=== PATIENT | male | born 1950 | race Caucasian/White ===

== ENCOUNTER → 2021-07-11 10:38 | Outpatient (CLI) | payer MEDICARE, OTHER, SELFPAY ==
--- NOTE | 2021-07-11 10:45 | XR_ITS ---
PROCEDURE: XR KNEE LT 4V CLINICAL INDICATION: LT ANTERIOR KNEE PAIN COMPARISON: CR [id number] KNEE-4 OR 5 VIEWS-RT from 06/30/2015 CR [id number] KNEE-LIMITED 2 VIEWS-RT from 07/17/2015 CR [id number] KNEE-LIMITED 2 VIEWS-RT from 04/16/2016 FINDINGS: There is marked joint space narrowing medially with [id number] appearance of the medial femoral condyle and medial tibial plateau. There is lateral displacement medial tibial plateau and in relationship to the medial femoral condyle by 15 mm. There is a proximal extent of a intramedullary osito visualized in the proximal tibia stabilized by 2 threaded tours only placed screws at the diametaphyseal zone of the tibia. There is marked narrowing the patellofemoral space with prominent spurring of the adjacent lateral condyle and spurring of the superior border of the patella. The lateral displacement of the tibia in relationship to the femur femoral condyle is similar in appearance to the displacement of the femoral tibial articulation on the right knee prior to total knee arthroplasty right-side. IMPRESSION: Marked degenerative change of the knee primarily involving the medial joint space and and patellofemoral space Dictated by: Dr. Giuliano Cabrera MD 07/11/2021 11:39 Dr. Giuliano Cabrera MD in [place] 07/11/2021 11:39
== END ==
PROVIDERS: PCP Family Medicine; Visit Provider Family Medicine
DX: M25.562 Pain in left knee (principal)
CPT/HCPCS: 73564

== ENCOUNTER → 2021-09-17 13:36 | Outpatient (CLI) | payer MEDICARE, OTHER, SELFPAY ==
--- NOTE | 2021-09-17 | CA_ITS ---
APPROVED REPORT EXAM: Comprehensive 2D, Doppler, and color-flow Echocardiogram Welding Machine Operator Electron Beam: Diamond Hopper RDCS Ht: 5 ft 8 in Wt: 302lbs BSA: 2.44 BP: 126/75 mmHg Indications: SOA,OBESITY,HTN,ABN EKG TDS SECONDARY TO MORBID OBESITY M-Mode Dimensions RVDd 3.10 cm (0.9-2.6) LA Diam 4.78 cm (1.9-4.0) LVDd 7.13 cm (3.5-5.7) Ao Diam 3.11 cm (2.0-3.7) LVDs 5.26 cm (3.5-5.7) IVSd 1.13 cm (0.6-1.1) PWd 1.18 cm (0.6-1.1) EF (Teich) 50.00% FS 26.20% EDV (Teich) 266.20 mL ESV (Teich) 133.00 mL LV Diastology E Decel Time 213.00 (160-240 msec) E/A Ratio 0.7 MED E' 4.60 (< 7 cm/sec) E'/MED E' Ratio 8.80 (>14) LAT E' 5.00 (<10 cm/sec) E/LAT E' Ratio 8.10 (>14) Mitral Valve MV E Max Cristobal. 40.00 (40-130 cm/s) MV A Velocity 54.00 (40-130 cm/s) E/A Ratio 0.75 MV Decel. Time 213.00 (160-240 ms) MV PHT 62.00 ms Left Ventricle Left atrium is mildly enlarged, left ventricle appears to be mildly dilated, visually estimated ejection fraction 50% with no obvious regional wall motion abnormality, endocardial surfaces are poorly visualized, grade 1 diastolic dysfunction seen without tissue Doppler evidence of raise left atrial pressure. Right Ventricle Right atrium and right ventricle moderately enlarged with normal contractility. Aortic Valve Aortic valve is minimally thickened and fibrosed, there is no aortic stenosis or aortic insufficiency. Mitral Valve Mitral valve leaflets grossly normal, there is no mitral stenosis, there is trace mitral regurgitation. Tricuspid Valve Tricuspid valve grossly normal, there is trace tricuspid regurgitation, tricuspid regurgitation jet velocity is inadequate for calculation of the right ventricular systolic pressure. Pulmonic Valve Pulmonic valve is poorly visualized. Great Vessels Aortic root is normal size. Inferior vena cava is poorly visualized. Pericardium No significant pericardial effusion noted. There is anterior echo-free space seen. Conclusion 1. Technically difficult study because of the patient factors and poor acoustic windows. 2. Biatrial enlargement, mildly dilated left ventricle, visually estimated ejection fraction 50% with no obvious regional wall motion abnormality, grade 1 diastolic dysfunction seen without tissue Doppler evidence of raise left atrial pressure. 3. Moderately enlarged right ventricle with normal contractility. 4. Trace mitral and tricuspid regurgitation. 5. No significant pericardial effusion noted. There is anterior echo-free space seen. 6. Inferior vena cava is poorly visualized. Electronically signed by : Darren Faust MD 09/17/2021 17:30:45
== END ==
PROVIDERS: PCP Family Medicine; Visit Provider Family Medicine
DX: I45.10 Unspecified right bundle-branch block (principal); I49.3 Ventricular premature depolarization; I10 Essential (primary) hypertension; J44.9 Chronic obstructive pulmonary disease, unspecified; R94.31 Abnormal electrocardiogram [ECG] [EKG]
CPT/HCPCS: 93306

== ENCOUNTER → 2021-12-19 06:25 | Outpatient (CLI) | payer MEDICARE, OTHER, SELFPAY ==
--- NOTE | 2021-12-19 06:32 | CA_ITS ---
APPROVED REPORT Exam: Pharmacologic Technologist: Amparo García Ht: 5 ft 8 in Wt: 308 lbs BSA: 2.46 m2 HR: 70 bpm BP: 134/83 mmHg Indications: ChF, Dyspnea Medical History Medications: Lisinopril,,,,, Asa,,,,, SpirOnolactone,,,,, TorSEMIDE,,,,, Potassium,,,,, StIOLoto Respimat,,,,, Stress Test Details Test: LEXISCAN HR Resting HR: 70 bpm Max Heart Rate (APMHR): 148.081417 bpm Max HR Achieved: 89 bpm Target HR (85% APMHR): 125.031226 bpm % of APMHR: 60.14 Recovery HR: 80 bpm BP Resting BP: 134.0/83.0 mmHg Max BP: 134.0/83.0 mmHg Recovery BP: 125.0/75.0 mmHg ECG Resting ECG: Normal sinus rhythm, right bundle branch block, poor R wave progression Clinical Exercise duration: 04:00 min Highest Stage Achieved: Exercise capacity: 1.0 METs Stress ECG Conclusion Symptoms: Mild lightheadedness. No chest pain. Arrhythmias/Ectopy: Rare PVC ST-T Changes: No significant changes. Conclusion: Unremarkable Lexiscan stress. Myoview images reported separately. Test Summary REST . . . . . . . Resting REST 04:48 . . 70 . 134/ 83 . . Stage 1 . . . . . . . Myoview Injected Stage 1 01:00 . . 78 . . . . Stage 2 01:00 . . 87 . 121/ 74 . . Stage 3 01:00 . . 83 . 126/ 75 . . Stage 4 01:00 . . 81 . 134/ 74 . Stop exercise at 04:00 RECOVERY 01:00 . . 80 . 117/ 78 . . RECOVERY 02:00 . . 80 . 117/ 78 . . RECOVERY 03:00 . . 79 . 125/ 75 . . RECOVERY 03:36 . . 80 . 125/ 75 . . Electronically signed by : Darren Faust MD 12/19/2021 20:19:53
--- NOTE | 2021-12-19 06:32 | NM_ITS ---
APPROVED REPORT Exam: Nuclear Stress Test Indication: CHF, FM HX., C.P., SOB, ABN EKG Patient Location: Outpatient Stress Tech: Amparo García DE Tech:YOKO Quiñones RT(R)(N) Ht: 6 ft 0 in Wt: 299 lbs HR: 70 bpm BP: 134/83 mmHg BSA: 2.53 m2 History: CHF, FM HX., C.P., SOB, ABN EKG Procedure: Patient received a 0.4 mg of intravenous Lexiscan, resting heart rate 70 bpm, resting blood pressure 134/83 mmHg, with Lexiscan maximum heart rate achived was 87 bpm which is Less than 85 % of the maximum predicted heart rate and blood pressure was 121/74 mmHg. With Lexiscan, patient denied any complaint of chest pain. Electrocardiogram Resting electrocardiogram shows sinus rhythm right bundle branch block, with Lexiscan there is less than 1.[address] segment depression noted from the baseline EKG. The EKG portion of the Lexiscan is nondiagnostic. Cardiac Stress and Resting SPECT Images: Cardiac Stress and Resting SPECT images were obtained using technetium 99m Myoview 31.1 mCi stress and 10.15 mCi at rest. Gated SPECT for analysis of segmental wall motion and calculation of ejection fraction also done. Cardiac stress and resting SPECT images show uniform myocardial activity without segmental perfusion abnormality, computer derived ejection fraction is 55% with no regional wall motion abnormality, right ventricle is mildly enlarged with normal contractility. However there is transient ischemic dilatation of the left ventricle seen, raising the concern for presence of balanced ischemia and multivessel coronary artery disease. Conclusion: 1. The EKG portion of the Lexiscan is nondiagnostic. 2. No scintigraphic evidence of reversible ischemia seen, computer derived ejection fraction is 55% with no regional wall motion abnormality, right ventricle is mildly enlarged with normal contractility. However there is transient ischemic dilatation of the left ventricle seen, raising the concerns for presence of balanced ischemia and multivessel coronary artery disease. 3. Abnormal Lexiscan Myoview study. Electronically signed by : Darren Faust MD 12/19/2021 20:23:21
--- NOTE | 2021-12-19 06:32 | CT_ITS ---
FINAL REPORT TECHNIQUE: Axial CT images were performed from the lung apices through the upper abdomen. Coronal reformats were submitted. This study was performed with techniques to keep radiation doses as low as reasonably achievable (ALARA). Individualized dose reduction techniques using automated exposure control or adjustment of mA and/or kV according to the patient's size were employed. CLINICAL HISTORY: dyspnea/edema/abnl ecg COMPARISON: 08/20/2016 FINDINGS: There is no axillary adenopathy. There is no hilar or mediastinal mass or adenopathy. Heart size is normal. There is no pericardial or pleural effusion. There is mild bilateral atelectasis or scar. There is a nodule in the right posterior costophrenic angle measuring 21 mm with calcifications within it which is nonspecific, larger than previous. There is fatty infiltration of the liver. IMPRESSION: Nodule in the right posterior costophrenic angle. Recommend follow-up CT and/or PET/CT. Reviewed, Interpreted and Dictated by Good Hand III, MD Transcribed by Alyson Leonard Authenticated by Good Hand III, MD on 12/19/2021 10:14:41 AM [facility]
--- NOTE | 2021-12-19 08:28 | HMH.ITSHM ---
Current Home Medications as stated by this patient Stuart Solomon or registration representative. []TORSEMIDE TIOTROPIUM SPIRONOLACTONE POTASSIUM LISINOPRIL ASA
== END ==
PROVIDERS: PCP Family Medicine; Visit Provider Internal Medicine Cardiovascular Disease
DX: I50.9 Heart failure, unspecified (principal); R06.00 Dyspnea, unspecified; R60.0 Localized edema; R94.31 Abnormal electrocardiogram [ECG] [EKG]; G47.33 Obstructive sleep apnea (adult) (pediatric)
CPT/HCPCS: 71250; 78452; 93017; A9502; G0399; J2785

== ENCOUNTER → 2022-01-01 11:00 | Outpatient (CLI) | payer MEDICARE, OTHER, SELFPAY ==
[2022-01-01 12:14] LABS: Basophils # 0.1 K/mm3 (0-0.2); Basophils % 1.3 % (0.1-2.0); Eosinophils # 0.1 K/mm3 (0.0-0.4); Eosinophils % 2.1 % (0.1-12.0); Hematocrit 46.9 % (42.0-52.0); Hemoglobin 15.1 g/dL (14.1-18.0); Lymphocytes # 1.3 K/mm3 (0.7-4.5); Lymphocytes % 25.8 % (10-50); Mean Corpuscular HGB Conc 32.2 g/dL (31.8-35.4); Mean Corpuscular Hemoglobin 32.5 pg (27.0-31.2); Mean Corpuscular Volume 101.1 fl (80-94); Mean Platelet Volume 8.1 fl (7.4-10.4); Monocytes # 0.5 K/mm3 (0.1-1.0); Monocytes % 10.2 % (1.7-9.3); Neutrophils # 3.1 K/mm3 (1.8-7.8); Neutrophils % 60.6 % (37.0-80.0); Platelet Count 216 K/mm3 (142-424); Red Blood Count 4.64 M/mm3 (4.60-6.20); Red Cell Distribution Width 13.9 % (11.5-17.5); White Blood Count 5.1 K/mm3 (4.8-10.8)
[2022-01-01 12:49] LABS: Chloride 101 mmol/L (98-107)
[2022-01-01 12:50] LABS: Potassium 5.3 mmoL/L (3.5-5.1); Sodium 136 mmol/L (136-145)
[2022-01-01 12:52] LABS: Blood Urea Nitrogen 21 mg/dl (9-20); Estimated Glomerular Filt Rate 73 ml/min (>60); GFR (African American) 89 ML/MIN (>60)
[2022-01-01 12:53] LABS: Anion Gap 12.3 mEq/L (5-15); Calcium 8.3 mg/dl (8.4-10.2); Carbon Dioxide 28 mmol/L (22.0-30.0); Glucose 129 mg/dl (74-100)
== END ==
PROVIDERS: Internal Medicine Cardiovascular Disease; Visit Provider Internal Medicine
DX: I20.8 Other forms of angina pectoris (principal); I45.10 Unspecified right bundle-branch block; I50.9 Heart failure, unspecified; R06.00 Dyspnea, unspecified; R91.1 Solitary pulmonary nodule; R94.31 Abnormal electrocardiogram [ECG] [EKG]; R94.39 Abnormal result of other cardiovascular function study; Z01.812 Encounter for preprocedural laboratory examination; Z11.52 Encounter for screening for COVID-19
CPT/HCPCS: 36415; 80048; 85025; C9803; U0003; U0005

== ENCOUNTER 2022-01-02 07:36 | Day surgery (SDC) | payer MEDICARE, OTHER, SELFPAY ==
[2022-01-02] VITALS (12 sets, daily range): BP systolic 99–147; BP diastolic 55–86; PULSE 71–86; RESP 16–20; TEMP 36.4–36.9; O2SAT 91–97; BMI 47.2
--- NOTE | 2022-01-02 07:27 | IR_ITS ---
APPROVED REPORT Patient Location: [facility]: YOKO Blake RT (R) PROCEDURES Left heart catheterization Left ventriculogram Selective coronary angiogram INDICATION High risk abnormal Myoview Informed consent was obtained prior to the procedure. COMPLICATIONS None Estimated Blood Loss: Less than 10 mls TECHNIQUE One percent lidocaine used to anesthetize the right anterior aspect of the wrist. The right radial artery was accessed via the Seldinger technique. A 6 Senegalese sheath was placed in the right radial artery. 2.5 mg of verapamil, 800 mcg of nitroglycerin, 1mg Lidocaine and 5000 U Heparin were given through the arterial sheath. The papa catheter was also used to perform left heart catheterization, left ventriculogram and selective coronary angiogram. At the end of the procedure the sheath was removed good hemostasis was achieved using Traclet band, patient was transferred to the postop holding area in stable condition. ANGIOGRAPHIC RESULTS The left main artery Has a long tubular 30% stenosis throughout its entire course The left anterior descending artery Approximately normal and then tapers to a small caliber vessel and mid segment as it hits the apex. There is no overt angiographic evidence of atherosclerosis. The vessel was simply small in caliber The circumflex artery Nondominant normal The right coronary artery Large dominant normal The ISBELL ventriculogram reveals Normal 65% The left ventricular end-diastolic pressure Severely elevated at 35 mmHg IMPRESSION Mild to moderate diffuse left main disease as described above Normal ejection fraction Severely elevated LVEDP consistent with advanced diastolic dysfunction PLAN 1. Treatment of diastolic dysfunction 2. Providing there are no large fluid shifts perioperatively patient is a low and acceptable risk from a cardiac standpoint to proceed with elective knee surgery 3. LDL less than 55 4. Standard therapy for ischemic heart disease Electronically signed by : Manuel Ayon MD 01/02/2022 10:15:57
--- NOTE | 2022-01-02 11:32 | SUR.PHASEII ---
Received report from Zahraa Rivas,RN @ [phone] Pt currently sitting up on stretcher eating meal tray, tolerating well. No complaints voiced. Friend @ bedside. No needs voiced.
== END 2022-01-02 13:20 | disposition home or self-care (01) ==
PROVIDERS: PCP Family Medicine; Visit Provider Internal Medicine
DX: I25.118 Atherosclerotic heart disease of native coronary artery with other forms of angina pectoris; I45.10 Unspecified right bundle-branch block; I50.30 Unspecified diastolic (congestive) heart failure; R06.00 Dyspnea, unspecified; R91.1 Solitary pulmonary nodule; R94.31 Abnormal electrocardiogram [ECG] [EKG]; R94.39 Abnormal result of other cardiovascular function study; I11.0 Hypertensive heart disease with heart failure; Z79.899 Other long term (current) drug therapy; I45.0 Right fascicular block
CPT/HCPCS: 93458; 99152; C1725; C1760; C1769; J1644; Q9967

== ENCOUNTER → 2022-01-16 09:42 | Outpatient (CLI) | payer MEDICARE, OTHER, SELFPAY ==
[2022-01-16 14:57] LABS: Basophils # 0.1 K/mm3 (0-0.2); Basophils % 0.9 % (0.1-2.0); Eosinophils # 0.1 K/mm3 (0.0-0.4); Eosinophils % 1.7 % (0.1-12.0); Hemoglobin 14.1 g/dL (14.1-18.0); Lymphocytes # 1.7 K/mm3 (0.7-4.5); Lymphocytes % 21.3 % (10-50); Mean Corpuscular HGB Conc 32.9 g/dL (31.8-35.4); Mean Corpuscular Hemoglobin 32.4 pg (27.0-31.2); Mean Corpuscular Volume 98.5 fl (80-94); Mean Platelet Volume 8.4 fl (7.4-10.4); Monocytes # 0.6 K/mm3 (0.1-1.0); Monocytes % 7.6 % (1.7-9.3); Neutrophils # 5.3 K/mm3 (1.8-7.8); Neutrophils % 68.4 % (37.0-80.0); Platelet Count 310 K/mm3 (142-424); Red Blood Count 4.36 M/mm3 (4.60-6.20); Red Cell Distribution Width 13.6 % (11.5-17.5); White Blood Count 7.7 K/mm3 (4.8-10.8)
[2022-01-16 15:18] LABS: Chloride 100 mmol/L (98-107); Sodium 136 mmol/L (136-145)
[2022-01-16 15:19] LABS: Potassium 5.5 mmoL/L (3.5-5.1)
[2022-01-16 15:21] LABS: Blood Urea Nitrogen 51 mg/dl (9-20); Estimated Glomerular Filt Rate 35 ml/min (>60); GFR (African American) 42 ML/MIN (>60)
[2022-01-16 15:22] LABS: Anion Gap 17.5 mEq/L (5-15); Calcium 9.6 mg/dl (8.4-10.2); Carbon Dioxide 24 mmol/L (22.0-30.0); Glucose 224 mg/dl (74-100)
[2022-01-16 15:31] LABS: NT Pro Brain Natriuretic Pep. 51.9 pg/mL (0-125)
== END ==
PROVIDERS: Visit Provider Nurse Practitioner Family
DX: I25.10 Atherosclerotic heart disease of native coronary artery without angina pectoris (principal); I45.10 Unspecified right bundle-branch block; I50.9 Heart failure, unspecified; R91.1 Solitary pulmonary nodule; R94.31 Abnormal electrocardiogram [ECG] [EKG]; Z01.810 Encounter for preprocedural cardiovascular examination; R06.00 Dyspnea, unspecified
CPT/HCPCS: 36415; 80048; 83880; 85025

== ENCOUNTER 2022-01-16 16:01 | Observation (INO) | payer MEDICARE, OTHER, SELFPAY ==
--- NOTE | 2022-01-16 16:06 | CT_ITS ---
PROCEDURE INFORMATION: Exam: CT Abdomen And Pelvis Without Contrast Exam date and time: 01/16/2022 4:11 PM Age: 71 years old Clinical indication: Bloating; Additional info: Abdominal edema TECHNIQUE: Imaging protocol: Computed tomography of the abdomen and pelvis without contrast. Radiation optimization: All CT scans at this facility use at least one of these dose optimization techniques: automated exposure control; mA and/or kV adjustment per patient size (includes targeted exams where dose is matched to clinical indication); or iterative reconstruction. COMPARISON: ABDWO CT ABD W/O CONT(RENAL ST.orAPP 08/20/2016 8:07 AM FINDINGS: Tubes, catheters and devices: There is a small ventral hernia containing fat located laterally to the right of the mesh repair. Findings demonstrated on series 4, image number 79. The defect measures 12 mm in maximum dimensions. These findings are stable. Lungs: Regions of parenchymal scarring again demonstrated at the right lung base. Minimal chronic pleural reactive changes demonstrated at the left lung base. There is evidence of prior granulomatous disease at the right lung base. Liver: Normal. No mass. Gallbladder and bile ducts: Normal. No calcified stones. No ductal dilation. Pancreas: Normal. No ductal dilation. Spleen: Normal. No splenomegaly. Adrenal glands: Normal. No mass. Kidneys and ureters: Normal. No hydronephrosis. Stomach and bowel: There is a persistent ovoid collection of fat with a surrounding rim of soft tissue density. Findings similar to the previous study and may correspond to chronic changes of previous epiploic appendagitis. (series 4, image number 1 of 5). There is mild diverticulosis involving predominantly the descending and sigmoid colon , but no acute diverticulitis. No bowel distension. No mucosal thickening. Appendix: No evidence of appendicitis. Intraperitoneal space: Unremarkable. No free air. No significant fluid collection. Vasculature: Unremarkable. No abdominal aortic aneurysm. Lymph nodes: Unremarkable. No enlarged lymph nodes. Urinary bladder: Unremarkable as visualized. Reproductive: Unremarkable as visualized. Bones/joints: Lumbar spondylosis with multilevel disc degeneration again demonstrated. Soft tissues: Persistent subcutaneous collection of fat ventral to the distal sternum measuring 7.7 mm in length by 4.3 cm in AP dimensions by 8.5 cm transversely. This is slightly larger in comparison to the previous study. Sagittal reformatted images suggest a small ventral defect with herniation of mesenteric fat into this region. Bilateral fat filled inguinal hernias. Findings incompletely visualized IMPRESSION: 1. Small ventral hernia lateral to the mesh repair. 12 mm defect demonstrated. Findings stable. 2. 7.7 x 4.3 x 8.6 cm collection of fat ventral to the distal sternum. Findings compatible with herniation of mesenteric fat related to small ventral defect as described above. 3. Bilateral fat filled inguinal hernias. 4. Findings suggesting chronic changes of previous epiploic appendagitis. Findings stable since 08/20/2016. 5. Diverticulosis. No evidence of diverticulitis. 6. Evidence of prior granulomatous disease as described above.
--- NOTE | 2022-01-16 16:08 | HMH.PNCARD ---
Subjective Date: 01/16/22 Time: 16:08 Principal diagnosis: CHF, ANTONI, DEHYDRATION Interval history: Pt here for cath fu C showed: Mild to moderate diffuse left main disease as described above Normal ejection fraction Severely elevated LVEDP consistent with advanced diastolic dysfunction PLAN 1. Treatment of diastolic dysfunction 2. Providing there are no large fluid shifts perioperatively patient is a low and acceptable risk from a cardiac standpoint to proceed with elective knee surgery 3. LDL less than 55 4. Standard therapy for ischemic heart disease Has had cp & pressure with activity SOB with activity, he states this hasn't gotten any better since increasing the diuretics. his abdomen is edematous and states this is worsening. CAD is present and likely stable. Medical management 12/2021 BP is low today. Weight is down 1 pound. EF 50% Diastolic dysfunction is present. on diuretics LVEDP is 35 mmHg, BNP today is normal. symptoms would suugest worsening CHF, but BNP is negative. RHC in the morning to evaluate intra-cardial pressures. The patient has been educated on the risks and benefits of proceeding with RHC with R IJ access. The patient has verbalized understanding and is agreeable in proceeding with the procedure. EKG is Wide QRS, LAD, RBBB, inferior infarct, age undetermined, rate is 97 bpm. Due to his hypotension, elevated creat, and diastolic heart failure will admit him to the hospital. CXR Kayexelate 15 grams po X1 dose Hold diuretics RHC in the morning NPO after midnight CT abdomen pulmonology consult Progress Note: A&P (1) Dehydration Status: Acute (2) ANTONI (acute kidney injury) Status: Acute (3) Hyperkalemia Status: Acute (4) CAD (coronary artery disease) Status: Chronic (5) Congestive heart failure Status: Chronic (6) Elevated left ventricular end-diastolic pressure (LVEDP) Status: Acute
[2022-01-16 16:13] VITALS: BMI 48.4
[2022-01-16 16:20] LABS: Alanine Aminotransferase 40 U/L (12-78); Aspartate Amino Transferase 34 U/L (17-59); Bilirubin,Unconjugated 0.5 mg/dL (0.0-1.1)
[2022-01-16 16:21] LABS: Albumin Level 3.9 g/dl (3.5-5.0); Alkaline Phosphatase 100 U/L (38-126); Bilirubin,Direct 0.1 mg/dl (0.0-0.4); Bilirubin,Indirect 0.5 mg/dL (0.0-0.9); Bilirubin,Total 0.6 mg/dl (0.2-1.3); Total Protein,Serum 6.5 g/dl (6.3-8.2)
[2022-01-16 18:00] VITALS: BP 131/66; PULSE 78; RESP 16; TEMP 36.6; O2SAT 91
[2022-01-16 19:20] VITALS: BP 109/70; PULSE 60; RESP 20; TEMP 36.7; O2SAT 94
[2022-01-16 20:00] VITALS: PULSE 70
[2022-01-17] VITALS (20 sets, daily range): BP systolic 93–152; BP diastolic 46–98; PULSE 60–88; RESP 16–22; TEMP 36.4–37.6; O2SAT 91–98; BMI 31.8
--- NOTE | 2022-01-17 | IR_ITS ---
APPROVED REPORT Patient Location: Inpatient PROCEDURES Right heart catheterization INDICATION Pulmonary artery hypertension, Congestive heart failure Informed consent was obtained prior to the procedure. COMPLICATIONS NONE Estimated Blood Loss: LESS THAN 10 ML TECHNIQUE One percent lidocaine was used to anesthetize the right anterior aspect of the neck. A skin washer needle was used to identify the right internal jugular vein. Following this a larger cannulation needle was used to cannulate the right internal jugular vein and a wire was passed into the vein. Prior to the 7 Latvian sheath being inserted the wire was confirmed under fluoroscopic guidance to be in the inferior vena cava. A 7 Latvian sheath was introduced and a Crandall-Cristina catheter was floated using hemodynamic waveforms in the pulmonary artery, right ventricle , and right atrium. Saturations were obtained in the pulmonary artery and the right atrium. At the end of the procedure the patient was transferred to the postop holding area in stable condition for sheath removal. ANGIOGRAPHIC RESULTS Right atrial pressure 10 mmHg Right ventricular pressure 35/10 mmHg Pulmonary artery pressure 30/18 mmHg Pulmonary artery occlusion pressure 12 mmHg Right atrial saturation 78% Pulmonary saturation 73% Aortic saturation 98% Cardiac output via Levy 5.3 L/min IMPRESSION Mild pulmonary hypertension on current medical regimen Normal to borderline elevated left-sided filling pressures No evidence of intracardiac pulmonary shunt PLAN 1. It is reasonable to continue with diuretic therapy at the current dosage 2. Patient appears to be euvolemic based on current right heart pressures 3. Patient does have low cardiac output with evidence of diastolic dysfunction however this current regimen should be continued and perhaps there may be some improvement over time. It is also reasonable to evaluate noncardiac etiologies for abdominal distention. Electronically signed by : Manuel Ayon MD 01/17/2022 14:16:52
--- NOTE | 2022-01-17 03:46 | PC.NURSE ---
Patient has rested well thus far. Patient has had no acute events. He has a BBB on telemetry, remains on room air and has voiced no complaints to this RN.
[2022-01-17 06:21] LABS: Basophils # 0.1 K/mm3 (0-0.2); Basophils % 0.9 % (0.1-2.0); Eosinophils # 0.2 K/mm3 (0.0-0.4); Eosinophils % 2.4 % (0.1-12.0); Hematocrit 42.2 % (42.0-52.0); Lymphocytes # 1.6 K/mm3 (0.7-4.5); Lymphocytes % 25.5 % (10-50); Mean Corpuscular HGB Conc 33.1 g/dL (31.8-35.4); Mean Corpuscular Hemoglobin 32.5 pg (27.0-31.2); Mean Corpuscular Volume 98.3 fl (80-94); Mean Platelet Volume 7.8 fl (7.4-10.4); Monocytes # 0.5 K/mm3 (0.1-1.0); Monocytes % 8.5 % (1.7-9.3); Neutrophils # 3.9 K/mm3 (1.8-7.8); Neutrophils % 62.7 % (37.0-80.0); Platelet Count 235 K/mm3 (142-424); Red Blood Count 4.29 M/mm3 (4.60-6.20); Red Cell Distribution Width 13.9 % (11.5-17.5); White Blood Count 6.2 K/mm3 (4.8-10.8)
[2022-01-17 06:32] LABS: Anion Gap 11.8 mEq/L (5-15); Blood Urea Nitrogen 50 mg/dl (9-20); Calcium 8.8 mg/dl (8.4-10.2); Carbon Dioxide 27 mmol/L (22.0-30.0); Chloride 102 mmol/L (98-107); Chol/HDL Ratio 6.3 (1-3.5); Cholesterol 132 mg/dl (140-200); Creatinine Clearance Estimated 47 mL/min (50-200); Estimated Glomerular Filt Rate 37 ml/min (>60); GFR (African American) 45 ML/MIN (>60); Glucose 149 mg/dl (74-100); HDL Cholesterol 21 mg/dl (40-60); Potassium 4.8 mmoL/L (3.5-5.1); Sodium 136 mmol/L (136-145); Triglycerides 253 mg/dl (30-150); VLDL Cholesterol 51 mg/dL (0-40)
[2022-01-17 06:42] LABS: Direct LDL Cholesterol 58.71 mg/dL (100-129)
--- NOTE | 2022-01-17 07:16 | HMH.PHAVTE ---
[facility] Pharmacy VTE Monitoring - Patient Demographics Admission date: 01/16/22 Report Date: 01/17/22 Time: 07:16 Allergies/Adverse Reactions: Patient Allergies No Known Drug Allergies Allergy (Unknown, Verified 01/16/22 13:56) Height: 1.68 m Weight: 89.993 kg Patient Problems: Current Active Problems Dehydration (Acute) ANTONI (acute kidney injury) (Acute) Hyperkalemia (Acute) Elevated left ventricular end-diastolic pressure (LVEDP) (Acute) CAD (coronary artery disease) (Chronic) Congestive heart failure (Chronic) - VTE Risk Labs: VTE Related Lab Results Hgb 14.0 g/dL (14.1-18.0) L 01/17/22 06:10 Hct 42.2 % (42.0-52.0) 01/17/22 06:10 Plt Count 235 K/mm3 (142-424) 01/17/22 06:10 BUN 50 mg/dl (9-20) H 01/17/22 06:10 Creatinine 1.80 mg/dl (0.66-1.25) H 01/17/22 06:10 Estimated Creat Clear 47 mL/min (50-200) 01/17/22 06:10 - Prophylaxis VTE Prophylaxis Ordered?: Yes Types of VTE Prophylaxis: TEDS Knee High Location of Applied Device: Bilateral Lower Extremeties
--- NOTE | 2022-01-17 07:51 | HMH.PHAINT ---
MEDICATION RECONCILIATION COMPLETED ON PATIENT USING EXTERNAL FILL HISTORY FROM PHARMACY. -LINCOLN OLIVERA, EDWARDD
--- NOTE | 2022-01-17 08:21 | HMH.PNCARD ---
Subjective Date: 01/17/22 Time: 08:21 Principal diagnosis: CHF, ANTONI, DEHYDRATION Interval history: 71 yo WM in bed in NAD. No chest pain. Still with complaint of swollen abdomen and LLQ discomfort. Relates some loose stools recently but also complaint of constipation with some bright red blood in bowl. CT of abdomen performed without acute process noted. Diverticulosis without diverticulitis. Reviewed plan for right heart catheterization with patient and he agrees to proceed. Exam Vital signs and Labs for Last 24 Hours: Temp Pulse Resp BP Pulse Ox 97.6 F 70 18 112/46 L 94 L 01/17/22 07:28 01/17/22 07:28 01/17/22 07:28 01/17/22 07:28 01/17/22 07:28 Laboratory Results - last 24 hr 01/16/22 14:45: Total Bilirubin 0.6, Direct Bilirubin 0.1, Conjugated Bilirubin 0.0, Indirect Bilirubin 0.5, Unconjugated Bilirubin 0.5, AST 34, ALT 40, Alkaline Phosphatase 100, Total Protein 6.5, Albumin 3.9 01/17/22 06:10: WBC 6.2, RBC 4.29 L, Hgb 14.0 L, Hct 42.2, MCV 98.3 H, MCH 32.5 H, MCHC 33.1, RDW 13.9, Plt Count 235, MPV 7.8, Neut % (Auto) 62.7, Lymph % (Auto) 25.5, [place] % (Auto) 8.5, Eos % (Auto) 2.4, Baso % (Auto) 0.9, Neut # (Auto) 3.9, Lymph # (Auto) 1.6, [place] # (Auto) 0.5, Eos # (Auto) 0.2, Baso # (Auto) 0.1 01/17/22 06:10: Sodium 136, Potassium 4.8, Chloride 102, Carbon Dioxide 27, Anion Gap 11.8, BUN 50 H, Creatinine 1.80 H, Estimated Creat Clear 47, Estimated GFR 37 L, Est GFR ( Amer) 45 L, Glucose 149 H D, Calcium 8.8, Triglycerides 253 H, Cholesterol 132 L, LDL Cholesterol Direct 58.71 L, VLDL Cholesterol 51 H, HDL Cholesterol 21 L, Cholesterol/HDL Ratio 6.3 H I & O for Last 24 hours: Intake & Output 01/14/22 01/15/22 01/16/22 01/17/22 11:59 11:59 11:59 11:59 Intake Total 0 / 0 Output Total 200 / 200 Balance -200 / -200 Weight 198 lb 6.4 oz Microbiology Reports for the Last 24 Hours: Microbiology 01/16/22 16:50 Nasopharyngeal Coronavirus COVID-19 PCR - Final - *Routine Respiratory Exam Present: CTA bilaterally - *Routine Cardiovascular Exam Present: RRR - *Routine Abdominal Exam Present: soft, normoactive bowel sounds, tenderness - *Routine Extremities Exam Present: edema. Absent: cyanosis, clubbing - *Routine Neurological Exam Present: alert, oriented X3 Progress Note: A&P (1) Dehydration Status: Acute (2) ANTONI (acute kidney injury) Status: Acute (3) Hyperkalemia Status: Acute (4) CAD (coronary artery disease) Status: Chronic (5) Congestive heart failure Status: Chronic (6) Elevated left ventricular end-diastolic pressure (LVEDP) Status: Acute (7) Abdominal swelling, generalized Status: Acute (8) Elevated glucose Status: Acute Assessment and Plan for All Diagnoses:: 1. Shortness of breath, abdominal swelling with lower extremity edema, etiology unknown. Planning right heart catheterization today. CT of the abdomen without significant findings for acute process. 2. Coronary artery disease by left heart catheterization, 01/02/2022, with evidence of diastolic dysfunction with LVEDP of 35 mmHg. Medical therapy for the CAD. 3. Obesity 4. CKD, stage III with creatinine 1.8 and GFR 37 5. Dyslipidemia, will start statin therapy. 6. Elevated glucose, likely has diabetes. Will defer work-up to admitting physician.
--- NOTE | 2022-01-17 09:08 | HMH.PULMCON ---
*Admission Date: 01/16/22 *Reason for consult:: Pulmonary nodule *History of present illness: Mr. Solomon is a 71-year-old male current smoker greater than [id number] smoking cigars a diagnosis COPD presented to hospital for worsening shortness of breath and abdominal pain and pulmonary was called for further management. He denies any worsening respiratory distress. Respiratory status at baseline as per the patient. [facility] History Medical History: Reports:: Congestive Heart Failure, Hypertension Denies:: Cancer, Diabetes Mellitus Type 1, Diabetes Mellitus Type 2, Internal Pacemaker, MRSA, Seizures *Have you ever received a pneumonia vaccine?: No *Have you received a flu vaccine this season?: No Other Medical History: Reports: Arthritis Laterality Cases: Left: Other Other Surgeries: Yes: Cardiac Catheterization. No: Pacemaker Amputation: No Fractures: No - *Social History Smoking Status: Former smoker Alcohol Intake: never *Occupational Status:: other Housing: house *Travel in the last 8 weeks: None Family Hx:: No significant family history ROS - Cons Reports body ache(s), Denies anorexia - Eyes Reports blurry vision - ENT Denies bleeding gums, Denies nasal discharge - Card Reports shortness of breath, Reports shortness of breath with activity - Resp Respiratory: Reports shortness of breath, Denies chest congestion, Denies cough, Denies excessive phlegm production - GI Gastrointestingal: Reports: abdominal pain - [place] Musculoskeletal: Reports back pain - Psych Denies thoughts of hurting/killing others, Denies thoughts of hurting/killing yourself Meds Home Medications Medication Instructions Recorded Confirmed Type aspirin 81 mg tablet,delayed 81 mg PO DAILY 08/28/21 01/16/22 History release lisinopril 10 mg tablet 10 mg PO DAILY 08/28/21 01/16/22 History tiotropium 2.5 mcg-olodaterol 2.5 2 puff IH DAILY 12/14/21 01/17/22 History mcg/actuation mist for inhalation torsemide 20 mg tablet 40 mg PO DAILY tab 12/14/21 01/16/22 History Spironolactone [Spironolactone 100 mg PO DAILY 01/02/22 01/16/22 History 25mg Tablet] Allergies Allergy/AdvReac Type Severity Reaction Status Date / Time No Known Drug Allergies Allergy Unknown Verified 01/16/22 13:56 Exam - Constitutional Constitutional:: Present: no acute distress, comfortable - HENMT Exam HENMT: Present: normocephalic - Eye Exam Eyes:: Present: normal appearance both eyes and related structures - Neck Exam Neck:: Present: normal visual inspection - Respiratory Exam Respiratory:: Present: able to speak in complete sentences, no respiratory distress. Absent: wheezing - Cardiovascular Exam Cardiac:: Present: S1, S2 - GI Exam GI:: Present: soft, obese - Skin Exam Skin: Present: warm - Neurological Exam Neurological: Present: alert - Extremities Exam Extremities: Present: no cyanosis, no clubbing, edema Internal Medicine - CN: Reslt - Labs CBC & Chem 7: 01/17/22 10:43 01/17/22 06:10 Labs: Short CBC 01/17/22 Range/Units 06:10 WBC 6.2 (4.8-10.8) K/mm3 Hgb 14.0 L (14.1-18.0) g/dL Hct 42.2 (42.0-52.0) % Plt Count 235 (142-424) K/mm3 BMP 01/17/22 06:10 Sodium 136 Potassium 4.8 Chloride 102 Carbon Dioxide 27 BUN 50 H Creatinine 1.80 H Glucose 149 H D Calcium 8.8 Liver Function 01/16/22 Range/Units 14:45 Total Bilirubin 0.6 (0.2-1.3) mg/dl Direct Bilirubin 0.1 (0.0-0.4) mg/dl AST 34 (17-59) U/L ALT 40 (12-78) U/L Alkaline Phosphatase 100 (38-126) U/L Albumin 3.9 (3.5-5.0) g/dl Assessment and Plan (1) Dehydration Status: Acute Category: Medical Code(s): E86.0 - Dehydration (2) ANTONI (acute kidney injury) Status: Acute Category: Medical Code(s): N17.9 - Acute kidney failure, unspecified (3) Hyperkalemia Status: Acute Category: Medical Code(s): E87.5 - Hyperkalemia (4) CAD (coronary artery disease) S
--- NOTE | 2022-01-17 10:24 | HMH.HP ---
*Admission Date: 01/16/22 *Chief complaint: cp,ab pain *History of present illness: 71 yr old male presented to cardiology yesterday for left heart cath follow up,Medical management was recommended. While in the office pt c/o of chest pain,soa and pressure with activity.Pt states these haven't gotten any better since increasing the diuretics. Pt also c/o abdomen pain with edema that has worsened. Pt states his left lower quad pain has increase with pain 8 out of 10. Pt was admitted for cardiology and surgery consult. [facility] History I have reviewed the patient's past medical history: Yes Medical History: Reports:: Congestive Heart Failure, Hypertension Denies:: Cancer, Diabetes Mellitus Type 1, Diabetes Mellitus Type 2, Internal Pacemaker, MRSA, Seizures *Have you ever received a pneumonia vaccine?: No *Have you received a flu vaccine this season?: No Other Medical History: Reports: Arthritis Laterality Cases: Left: Other Other Surgeries: Yes: Cardiac Catheterization. No: Pacemaker Amputation: No Fractures: No - *Social History Smoking Status: Former smoker Alcohol Intake: never *Occupational Status:: other Housing: house *Travel in the last 8 weeks: None Family Hx:: No significant family history Review of Systems - Review of Systems Review of systems:: pertinent systems reviewed and negative unless documented below - Constitutional Denies body ache(s), Denies fatigue - Eyes Denies blurry vision - ENT Denies abnormal hearing - *Cardiovascular Reports chest pain, Reports chest pain with activity, Reports shortness of breath, Reports shortness of breath with activity, Reports generalized swelling - *Respiratory Reports shortness of breath, Reports shortness of breath with activity, Denies change in phlegm color - *Gastrointestinal Reports abdominal pain, Reports other - *Genitourinary Denies difficulty urinating - *Musculoskeletal Denies abnormal walking - Integumentary/Breasts Denies rash - *Neurologic Denies abnormal walking - Psychiatric Denies lack of enjoyment - Endocrine Denies excessive sweating - Hematologic/Lymphatic Denies easy bruising - Allergic/Immunologic Denies itchy eyes Meds Home Medications Medication Instructions Recorded Confirmed Type aspirin 81 mg tablet,delayed 81 mg PO DAILY 08/28/21 01/16/22 History release lisinopril 10 mg tablet 10 mg PO DAILY 08/28/21 01/16/22 History tiotropium 2.5 mcg-olodaterol 2.5 2 puff IH DAILY 12/14/21 01/17/22 History mcg/actuation mist for inhalation torsemide 20 mg tablet 40 mg PO DAILY tab 12/14/21 01/16/22 History Spironolactone [Spironolactone 100 mg PO DAILY 01/02/22 01/16/22 History 25mg Tablet] Allergies Allergy/AdvReac Type Severity Reaction Status Date / Time No Known Drug Allergies Allergy Unknown Verified 01/16/22 13:56 Exam Vital signs and Labs for Last 24 Hours: Temp Pulse Resp BP Pulse Ox 97.6 F 70 18 112/46 L 94 L 01/17/22 07:28 01/17/22 08:00 01/17/22 07:28 01/17/22 07:28 01/17/22 07:28 Laboratory Results - last 24 hr 01/16/22 14:45: Total Bilirubin 0.6, Direct Bilirubin 0.1, Conjugated Bilirubin 0.0, Indirect Bilirubin 0.5, Unconjugated Bilirubin 0.5, AST 34, ALT 40, Alkaline Phosphatase 100, Total Protein 6.5, Albumin 3.9 01/17/22 06:10: WBC 6.2, RBC 4.29 L, Hgb 14.0 L, Hct 42.2, MCV 98.3 H, MCH 32.5 H, MCHC 33.1, RDW 13.9, Plt Count 235, MPV 7.8, Neut % (Auto) 62.7, Lymph % (Auto) 25.5, [place] % (Auto) 8.5, Eos % (Auto) 2.4, Baso % (Auto) 0.9, Neut # (Auto) 3.9, Lymph # (Auto) 1.6, [place] # (Auto) 0.5, Eos # (Auto) 0.2, Baso # (Auto) 0.1 01/17/22 06:10: Sodium 136, Potassium 4.8, Chloride 102, Carbon Dioxide 27, Anion Gap 11.8, BUN 50 H, Creatinine 1.80 H, Estimated Creat Clear 47, Estimated GFR 37 L, Est GFR ( Amer) 45 L, Glucose 149 H D, Calcium 8.8, Triglycerides 253 H, Cholesterol 132 L, LDL Cholesterol Direct 58.71 L, VLDL Cholesterol 51 H, HDL Cholesterol 21 L, Hafsa
[2022-01-17 10:51] LABS: Basophils # 0.1 K/mm3 (0-0.2); Basophils % 1.2 % (0.1-2.0); Eosinophils # 0.1 K/mm3 (0.0-0.4); Eosinophils % 2.4 % (0.1-12.0); Hematocrit 40.4 % (42.0-52.0); Hemoglobin 13.9 g/dL (14.1-18.0); Lymphocytes # 1.5 K/mm3 (0.7-4.5); Lymphocytes % 25.7 % (10-50); Mean Corpuscular HGB Conc 34.4 g/dL (31.8-35.4); Mean Corpuscular Hemoglobin 33.5 pg (27.0-31.2); Mean Corpuscular Volume 97.3 fl (80-94); Mean Platelet Volume 8.2 fl (7.4-10.4); Monocytes # 0.5 K/mm3 (0.1-1.0); Monocytes % 8.2 % (1.7-9.3); Neutrophils # 3.7 K/mm3 (1.8-7.8); Neutrophils % 62.5 % (37.0-80.0); Platelet Count 248 K/mm3 (142-424); Red Blood Count 4.15 M/mm3 (4.60-6.20); Red Cell Distribution Width 13.9 % (11.5-17.5); White Blood Count 5.9 K/mm3 (4.8-10.8)
--- NOTE | 2022-01-17 10:51 | HMH.GSCON ---
*Admission Date: 01/16/22 *Reason for consult:: hernia,gi bleed abnormal ct *History of present illness: Patient is a 71-year-old male from [place], [place] who had undergone left heart catheterization on 01/02/2022 which revealed mild to moderate diffuse left main disease, normal ejection fraction, severely elevated left ventricular end-diastolic pressure. Recommendations were made for medical management. He had presented to cardiology office on 01/16/2022 for follow-up. At that time he was complaining of chest pain and shortness of air. Was felt that the patient's abdomen was edematous . He describes symptoms consistent with abdominal distention. He was admitted for inpatient management. He underwent a CT scan of the abdomen and pelvis which revealed findings of small ventral hernia lateral to mesh with 12 mm defect, findings stable. 7.7 x 4.3 x 8.6 cm collection of fat ventral to the distal sternum. Findings compatible with herniation of mesenteric fat related to small ventral defect... Bilateral fat filled inguinal hernias. Findings suggesting chronic changes of previous epiploic appendagitis. Findings stable since 08/20/2016. Diverticulosis. No evidence of diverticulitis. Surgical consultation was obtained. Patient had undergone laparoscopic ventral hernia repair by Dr. Coreas in 2000 for a 4 x 4 centimeter umbilical hernia with placement of [employer] mesh. Interestingly the patient had undergone open left inguinal hernia repair and repair of umbilical hernia by Dr. Rehman in March 2004 with placement of Marlex prefix mesh plug. I had seen the patient in 2012 and he had severe acute appendicitis. At that time he was noted to have an epigastric hernia with chronically incarcerated fatty tissues. I did perform colonoscopy on 08/31/2013 which revealed pandiverticulosis and multiple polyps. I had recommended a 3-year follow-up colonoscopy. Patient describes mainly diffuse abdominal swelling. He has had some minor left lower quadrant discomfort. He describes occasional bright red blood per rectum. Review of Systems - *Neurologic Denies abnormal walking, Denies abnormal hearing [facility] History Medical History: Reports:: Congestive Heart Failure, Hypertension Denies:: Cancer, Diabetes Mellitus Type 1, Diabetes Mellitus Type 2, Internal Pacemaker, MRSA, Seizures *Have you ever received a pneumonia vaccine?: No *Have you received a flu vaccine this season?: No Other Medical History: Reports: Arthritis Laterality Cases: Left: Other Other Surgeries: Yes: Cardiac Catheterization. No: Pacemaker Amputation: No Fractures: No - *Social History Smoking Status: Former smoker Alcohol Intake: never *Occupational Status:: other Housing: house *Travel in the last 8 weeks: None Family Hx:: No significant family history Meds Home Medications Medication Instructions Recorded Confirmed Type aspirin 81 mg tablet,delayed 81 mg PO DAILY 08/28/21 01/16/22 History release lisinopril 10 mg tablet 10 mg PO DAILY 08/28/21 01/16/22 History tiotropium 2.5 mcg-olodaterol 2.5 2 puff IH DAILY 12/14/21 01/17/22 History mcg/actuation mist for inhalation torsemide 20 mg tablet 40 mg PO DAILY tab 12/14/21 01/16/22 History Spironolactone [Spironolactone 100 mg PO DAILY 01/02/22 01/16/22 History 25mg Tablet] Allergies Allergy/AdvReac Type Severity Reaction Status Date / Time No Known Drug Allergies Allergy Unknown Verified 01/16/22 13:56 Exam Vital signs and Labs for Last 24 Hours: Temp Pulse Resp BP Pulse Ox 97.6 F 70 18 112/46 L 94 L 01/17/22 07:28 01/17/22 08:00 01/17/22 07:28 01/17/22 07:28 01/17/22 07:28 Laboratory Results - last 24 hr 01/16/22 14:45: Total Bilirubin 0.6, Direct Bilirubin 0.1, Conjugated Bilirubin 0.0, Indirect Bilirubin 0.5, Unconjugated Bilirubin 0.5, AST 34, ALT 40, Alkaline Phosphatase 100, Total Protein 6.5, Albumin 3.9 01/17/22 06:10: WBC 6.2, RBC 4.29 L, Hgb 14.0 L, Hct 42.2, MCV 98.3 H,
[2022-01-17 14:47] LABS: CATHL Venous O2 SAT 78.7 % (75-80)
--- NOTE | 2022-01-17 15:31 | PC.NURSE ---
PT IS RESTING IN BED. PT HAS BEEN DROWSY SINCE ARRIVING BACK TO THE FLOOR FROM HEART CATH. CATH SITE DRESSING C/D/I. LUNG SOUND DIMINISHED. ABDOMEN LARGE/TENDERNESS WITH PALPATION (LLQ). VSS. WILL CONTINUE TO MONITOR.
[2022-01-18] VITALS: BP 127/58; PULSE 73; PULSE 80; RESP 18; TEMP 36.7; O2SAT 98
[2022-01-18 03:16] VITALS: BP 103/67; PULSE 62; RESP 18; TEMP 36.8; O2SAT 96
[2022-01-18 04:00] VITALS: PULSE 80
--- NOTE | 2022-01-18 04:28 | PC.NURSE ---
pt restless through the night, and slept at intervals, lungs clear to diminished, 02 sats 98% on room air, dressing to right IJ CDI, VSS, telemetry sinus with BBB, skin pwd, no edema noted, urine clear, pt a&o, no acute distress noted.
[2022-01-18 05:00] VITALS: BMI 48.0
[2022-01-18 06:28] LABS: Basophils # 0.1 K/mm3 (0-0.2); Basophils % 1.2 % (0.1-2.0); Eosinophils # 0.2 K/mm3 (0.0-0.4); Eosinophils % 2.2 % (0.1-12.0); Hematocrit 40.6 % (42.0-52.0); Hemoglobin 13.5 g/dL (14.1-18.0); Lymphocytes # 1.6 K/mm3 (0.7-4.5); Lymphocytes % 23.5 % (10-50); Mean Corpuscular HGB Conc 33.2 g/dL (31.8-35.4); Mean Corpuscular Hemoglobin 32.3 pg (27.0-31.2); Mean Corpuscular Volume 97.2 fl (80-94); Mean Platelet Volume 7.8 fl (7.4-10.4); Monocytes # 0.5 K/mm3 (0.1-1.0); Monocytes % 7.6 % (1.7-9.3); Neutrophils # 4.5 K/mm3 (1.8-7.8); Neutrophils % 65.6 % (37.0-80.0); Platelet Count 237 K/mm3 (142-424); Red Blood Count 4.18 M/mm3 (4.60-6.20); Red Cell Distribution Width 13.6 % (11.5-17.5); White Blood Count 6.9 K/mm3 (4.8-10.8)
[2022-01-18 06:36] LABS: Anion Gap 10.9 mEq/L (5-15); Blood Urea Nitrogen 32 mg/dl (9-20); Calcium 8.7 mg/dl (8.4-10.2); Carbon Dioxide 26 mmol/L (22.0-30.0); Chloride 102 mmol/L (98-107); Creatinine Clearance Estimated 43 mL/min (50-200); Estimated Glomerular Filt Rate 50 ml/min (>60); GFR (African American) 60 ML/MIN (>60); Glucose 151 mg/dl (74-100); Potassium 4.9 mmoL/L (3.5-5.1); Sodium 134 mmol/L (136-145)
[2022-01-18 08:00] VITALS: BP 137/85; PULSE 85; PULSE 89; RESP 18; TEMP 36.6; O2SAT 95
--- NOTE | 2022-01-18 08:09 | HMH.PNCARD ---
Subjective Date: 01/18/22 Time: 08:09 Principal diagnosis: CHF, ANTONI, DEHYDRATION Interval history: 71-year-old white male in bed in no acute distress. Denies chest pain, pressure or tightness. Exam Vital signs and Labs for Last 24 Hours: Temp Pulse Resp BP Pulse Ox 98.2 F 80 18 103/67 L 96 01/18/22 03:16 01/18/22 04:00 01/18/22 03:16 01/18/22 03:16 01/18/22 03:16 Laboratory Results - last 24 hr 01/17/22 10:43: WBC 5.9, RBC 4.15 L, Hgb 13.9 L, Hct 40.4 L, MCV 97.3 H, MCH 33.5 H, MCHC 34.4, RDW 13.9, Plt Count 248, MPV 8.2, Neut % (Auto) 62.5, Lymph % (Auto) 25.7, Johnston % (Auto) 8.2, Eos % (Auto) 2.4, Baso % (Auto) 1.2, Neut # (Auto) 3.7, Lymph # (Auto) 1.5, Johnston # (Auto) 0.5, Eos # (Auto) 0.1, Baso # (Auto) 0.1 01/17/22 14:15: ABG O2 Sat (Measured) 73.0 L, POC VBG O2 Sat (Sp) 78.7 01/18/22 06:11: WBC 6.9, RBC 4.18 L, Hgb 13.5 L, Hct 40.6 L, MCV 97.2 H, MCH 32.3 H, MCHC 33.2, RDW 13.6, Plt Count 237, MPV 7.8, Neut % (Auto) 65.6, Lymph % (Auto) 23.5, Johnston % (Auto) 7.6, Eos % (Auto) 2.2, Baso % (Auto) 1.2, Neut # (Auto) 4.5, Lymph # (Auto) 1.6, Johnston # (Auto) 0.5, Eos # (Auto) 0.2, Baso # (Auto) 0.1 01/18/22 06:11: Sodium 134 L, Potassium 4.9, Chloride 102, Carbon Dioxide 26, Anion Gap 10.9, BUN 32 H D, Creatinine 1.40 H D, Estimated Creat Clear 43, Estimated GFR 50 L, Est GFR ( Amer) 60 D, Glucose 151 H, Calcium 8.7 I & O for Last 24 hours: Intake & Output 01/15/22 01/16/22 01/17/22 01/18/22 11:59 11:59 11:59 11:59 Intake Total 0 / 0 843 / 843 Output Total 500 / 500 2125 / 2125 Balance -500 / -500 -1282 / -1282 Weight 198 lb 6.4 oz 298 lb 12.8 oz - Constitutional no acute distress - *Routine Respiratory Exam Present: CTA bilaterally - *Routine Cardiovascular Exam Present: RRR - *Routine Abdominal Exam Present: soft, normoactive bowel sounds. Absent: tenderness - *Routine Extremities Exam Absent: cyanosis, clubbing, edema Progress Note: A&P (1) Dehydration Status: Acute (2) ANTONI (acute kidney injury) Status: Acute (3) Hyperkalemia Status: Acute (4) CAD (coronary artery disease) Status: Chronic (5) Congestive heart failure Status: Chronic (6) Elevated left ventricular end-diastolic pressure (LVEDP) Status: Acute (7) Abdominal swelling, generalized Status: Acute (8) Elevated glucose Status: Acute Assessment and Plan for All Diagnoses:: Right heart cath yesterday revealed pulmonary artery pressure within the normal range. Spironolactone decreased to 50 mg daily. Cardiac status stable and could be discharged today for outpatient follow-up. Discussed caloric reduction (pt eats a lot of fast food including donuts). Home medications: Aspirin 81 mg daily Lisinopril 10 mg daily Spironolactone 50 mg daily Torsemide 40 mg daily Follow up in 2 wks
--- NOTE | 2022-01-18 09:38 | HMH.DCSUM ---
General - General Admission date:: 01/16/22 Discharge date: 01/18/22 HPI HPI: 71 yr old male presented to cardiology yesterday for left heart cath follow up,Medical management was recommended. While in the office pt c/o of chest pain,soa and pressure with activity.Pt states these haven't gotten any better since increasing the diuretics. Pt also c/o abdomen pain with edema that has worsened. Pt states his left lower quad pain has increase with pain 8 out of 10. Pt was admitted for cardiology and surgery consult. Hospital Course Hospital Course: Abnormal Lab Results 01/17/22 10:43: RBC 4.15 L, Hgb 13.9 L, Hct 40.4 L, MCV 97.3 H, MCH 33.5 H 01/17/22 14:15: ABG O2 Sat (Measured) 73.0 L 01/18/22 06:11: RBC 4.18 L, Hgb 13.5 L, Hct 40.6 L, MCV 97.2 H, MCH 32.3 H 01/18/22 06:11: Sodium 134 L, BUN 32 H D, Creatinine 1.40 H D, Estimated GFR 50 L, Glucose 151 H Microbiology 01/16/22 16:50 Nasopharyngeal Coronavirus COVID-19 PCR - Final pulmonary Assessment and Plan for all problems:: #Pulmonary nodule: CT chest performed earlier this month showed 2.1 cm right lower lobe nodule with central calcifications. No lymphadenopathy noted. Likely benign. No prior imaging available for review. This nodule is present on patient CT abdomen from 2016 have it appeared to be increasing in size from 15 mm to 21 mm. CAD, CHF, CKD and evidence of volume overload On room air saturating 90% and above. No leukocytosis. Scheduled for right heart cath as per cardiology. Plan: We will schedule PET scan in outpatient basis. He is current smoker with greater than [id number] smoking history, carries a diagnosis COPD and using Stiolto inhaler. Admits respiratory symptoms at baseline. Denies any worsening respiratory symptoms. Combivent every 6 hours scheduled while inpatient and can be discharged on Stiolto inhaler Surgery consult:Assessment and Plan for all problems:: I reviewed the CT scan images. It appears as though the epigastric hernia is likely chronic for many years and inconsequential. The tiny defect adjacent to his laparoscopic repair appears inconsequential. He does have findings in the mid abdomen which appear chronic possible previous epiploic appendagitis. I reviewed his pathology from his colonoscopy in 2013 which reveals tubular adenoma x5 with an early hyperplastic polyp in the transverse colon. No need for any acute inpatient surgical intervention at this time. cardiology consult Assessment and Plan for All Diagnoses:: Right heart cath yesterday revealed pulmonary artery pressure within the normal range. Spironolactone decreased to 50 mg daily. Cardiac status stable and could be discharged today for outpatient follow-up. Discussed caloric reduction (pt eats a lot of fast food including donuts). Home medications: Aspirin 81 mg daily Lisinopril 10 mg daily Spironolactone 50 mg daily Torsemide 40 mg daily Follow up in 2 wks Discharge Plan (1) Dehydration-able to tolerate fluids and food without difficulty, cre improved (2) ANTONI (acute kidney injury)-cre improved, check bmp in 1week (3) Hyperkalemia- stable 4.9 today (4) CAD (coronary artery disease)-Right heart cath yesterday revealed pulmonary artery pressure within the normal range. Spironolactone decreased to 50 mg daily. (5) Congestive heart failure-per heart cath:Patient does have low cardiac output with evidence of diastolic dysfunction however this current regimen should be continued and perhaps there may be some improvement over time. (6) Elevated left ventricular end-diastolic pressure (LVEDP)-pulmonary artery pressure within the normal range. continue diuretics (7) Abdominal swelling, generalized-follow up with surgery as out pt for further work up (8) Elevated glucose-low fat/calorie/carb diet Objective Vital signs: Temp Pulse Resp BP Pulse Ox 97.8 F 85 18 137/85 95 01/18/22 08:00 01/18/22
[2022-01-18 09:47] VITALS: O2SAT 94
--- NOTE | 2022-01-18 10:17 | HMH.OTEV ---
OT Inpatient Evaluation Rehab OT IP Evaluation Start: 01/18/22 09:20 Freq: ONCE Status: Complete Protocol: Document 01/18/22 10:10 TREE (Rec: 01/18/22 10:17 TREE [id number]) Rehab OT IP Assessment Subjective History 71 yr old male presented to cardiology yesterday for left heart cath follow up,Medical management was recommended. While in the office pt c/o of chest pain,soa and pressure with activity.Pt states these haven't gotten any better since increasing the diuretics . Pt also c/o abdomen pain with edema that has worsened. Pt states his left lower quad pain has increase with pain 8 out of 10. Pt was admitted for cardiology and surgery consult. [facility] History I have reviewed the patient's past medical history: Yes Medical History: Reports:: Congestive Heart Failure, Hypertension Patient lives alone in 1 story home with 1 SIRISHA. Patient completed all ADLs and fx'l mobility independently with occasionally having RW. Subjective I can get up. Instructed Patient on proper hand/foot placement to complete supine->sit @ EOB -> ambulate to restroom with usage of RW. Patient completed UB/LB drsg with SBA for safety. Patient completed toilet transfers with SBA for safety and maneuvering IV. No LOB noted. I with toilet hygiene. Patient ambulated back to recliner ~5ft to improve time OOB. OT provided Patient with call light at end of session. Objective Patient Orientation Person,Place,Name,Year Upper Extremity Gross ROM WFL Bed Mobility bed mobility - supine/sit Assist Level Independent Transfer Training
--- NOTE | 2022-01-18 10:24 | HMH.PHAINT ---
DISCHARGE MEDICATION COUNSELING PROVIDED. DISCUSSED STOPPING THE 100 MG SPIRONOLACTONE AND STARTING THE 50 MG SPIRONOLACTONE. PATIENT ENDORSED NO QUESTIONS AT THIS TIME.
--- NOTE | 2022-01-18 11:03 | HMH.PTEV ---
Physical Therapy Evaluation Rehab PT IP Evaluation Start: 01/18/22 09:20 Freq: ONCE Status: Active Protocol: Document 01/18/22 10:36 PHORROB (Rec: 01/18/22 11:03 PHORNE [id number]) Subjective/History History History 71 yowm adm to [facility] with CHF exac. He reports he lives alone, no steps to enter the home and he uses a cane for ambulation at baseline. Subjective Subjective Pt with no c/o this am. I feel a whole lot better. Rehab PT IP Eval Objective Appearance Patient Behavior Appropriate Patient Orientation Person,Place,Time Difficulty following instructions none Speech Pattern Clear Ambulation Patient Able to Ambulate Yes Ambulation Observation IP General Gait Pattern Observation Wide Based Gait Ambulation Distance (feet) 50 Ambulation Assistive Device None Ambulation Ability Supervision/Stand by Balance Ability to Arise Able, uses arms to help Sitting Balance Steady, safe Standing Balance Steady, wide stance Dynamic Sitting Balance Ability Good Dynamic Standing Balance Ability Fair Transfers Bed Transfer Ability Supervision/Stand by Chair Transfer Ability Supervision/Stand by Sit to Stand Bed Transfer Ability Supervision/Stand by Sit to Stand Chair Transfer Ability Supervision/Stand by Rehab PT IP prob,goals,plan Problems Date of Evaluation: 01/18/22 Discharge Plan PT Discharge Plan Pt appears to be at baseline and is appropriate to return home once medically stable. G -code Required No Eval Complexity Eval Charge Codes 55764 - Moderate Complexity PHYSICIAN CERTIFICATION: I certify the specified therapy services for Stuart Solomon are required, authorized, and reviewed every 30 days.
--- NOTE | 2022-01-18 13:50 | HMH.PULMPN ---
Internal Medicine - PN: Subj *Date: 01/18/22 *Time: 13:50 Interval history: No acute respiratory vents overnight. Continues to remain on room air. Exam - Constitutional Constitutional:: Present: no acute distress, comfortable - HENMT Exam HENMT: Present: normocephalic - Eye Exam Eyes:: Present: normal appearance both eyes and related structures - Neck Exam Neck:: Present: normal visual inspection - Respiratory Exam Respiratory:: Present: able to speak in complete sentences, no respiratory distress - Cardiovascular Exam Cardiac:: Present: S1, S2 - GI Exam GI:: Present: soft, obese - Skin Exam Skin: Present: warm - Neurological Exam Neurological: Present: alert, awake, normal cognition - Extremities Exam Extremities: Present: no cyanosis, no clubbing Assessment and Plan (1) Dehydration Status: Acute Category: Medical Code(s): E86.0 - Dehydration (2) ANTONI (acute kidney injury) Status: Acute Category: Medical Code(s): N17.9 - Acute kidney failure, unspecified (3) Hyperkalemia Status: Acute Category: Medical Code(s): E87.5 - Hyperkalemia (4) CAD (coronary artery disease) Status: Chronic Qualifiers: Coronary Disease-Associated Artery/Lesion type: [place] artery [place] vs. transplanted heart: [place] heart Associated angina: without angina Qualified Code(s): I25.10 - Atherosclerotic heart disease of [place] coronary artery without angina pectoris Category: Medical Code(s): I25.10 - Atherosclerotic heart disease of [place] coronary artery without angina pectoris (5) Congestive heart failure Status: Chronic Qualifiers: Heart failure type: diastolic Heart failure chronicity: chronic Qualified Code(s): I50.32 - Chronic diastolic (congestive) heart failure Category: Medical Code(s): I50.9 - Heart failure, unspecified (6) Elevated left ventricular end-diastolic pressure (LVEDP) Status: Acute Category: Medical Code(s): R94.30 - Abnormal result of cardiovascular function study, unspecified (7) Abdominal swelling, generalized Status: Acute Category: Medical Code(s): R19.07 - Generalized intra-abdominal and pelvic swelling, mass and lump (8) Elevated glucose Status: Acute Category: Medical Code(s): R73.09 - Other abnormal glucose - Assessment and plan all Dx Assessment and Plan for all problems:: #Pulmonary nodule: CT chest performed earlier this month showed 2.1 cm right lower lobe nodule with central calcifications. No lymphadenopathy noted. Likely benign. No prior imaging available for review. This nodule is present on patient CT abdomen from 2016 have it appeared to be increasing in size from 15 mm to 21 mm. CAD, CHF, CKD and evidence of volume overload On room air saturating 90% and above. No leukocytosis. Scheduled for right heart cath as per cardiology. Plan: We will schedule PET scan in outpatient basis. Patient prefers to get his PET scan at [place]. Pulmonary clinic will schedule fPET scan and inform the patient with the date and schedule a post PET scan pulmonary clinic follow-up appointment after that He is current smoker with greater than [id number] smoking history, carries a diagnosis COPD and using Stiolto inhaler. Admits respiratory symptoms at baseline. Denies any worsening respiratory symptoms. Combivent every 6 hours scheduled while inpatient and can be discharged on Stiolto inhaler. Thank you for involving pulmonary in this patient care. Follow the patient in pulmonary clinic after PET scan.
--- NOTE | 2022-01-21 15:50 | CARE MANAGER ---
Patient returned call. Discussed follow up from hospital discharge. He states he picked up his medications and had no difficulty with that. He is feeling better. We reviewed his appointments and the times of those appointments. KAREN Alvarado
== END 2022-01-18 12:00 | disposition home or self-care (01) ==
PROVIDERS: Nurse Practitioner; Nurse Practitioner Family; Admitting Provider Internal Medicine; PCP Emergency Medicine; Visit Provider Emergency Medicine
DX: R91.1 Solitary pulmonary nodule; I27.20 Pulmonary hypertension, unspecified; I50.32 Chronic diastolic (congestive) heart failure; N17.9 Acute kidney failure, unspecified; Z20.822 Contact with and (suspected) exposure to COVID-19; Z79.899 Other long term (current) drug therapy; E86.0 Dehydration; E87.5 Hyperkalemia; N18.30 Chronic kidney disease, stage 3 unspecified; I25.10 Atherosclerotic heart disease of native coronary artery without angina pectoris; Z87.891 Personal history of nicotine dependence; R19.07 Generalized intra-abdominal and pelvic swelling, mass and lump; J44.9 Chronic obstructive pulmonary disease, unspecified; I13.0 Hypertensive heart and chronic kidney disease with heart failure and stage 1 through stage 4 chronic kidney disease, or unspecified chronic kidney disease
CPT/HCPCS: G0378; 36415; 74176; 80048; 80061; 80076; 82810; 85025; 93456; 94640; 97162; 97165; 99152; C1894; C9803; J1644; U0003; U0005

== ENCOUNTER → 2022-01-25 11:33 | Outpatient (CLI) | payer MEDICARE, OTHER, SELFPAY ==
[2022-01-25 13:27] LABS: Chloride 100 mmol/L (98-107); Potassium 5.7 mmoL/L (3.5-5.1); Sodium 135 mmol/L (136-145)
[2022-01-25 13:30] LABS: Anion Gap 13.7 mEq/L (5-15); Blood Urea Nitrogen 45 mg/dl (9-20); Carbon Dioxide 27 mmol/L (22.0-30.0); Estimated Glomerular Filt Rate 46 ml/min (>60); GFR (African American) 56 ML/MIN (>60)
[2022-01-25 13:31] LABS: Glucose 135 mg/dl (74-100)
[2022-01-25 13:39] LABS: NT Pro Brain Natriuretic Pep. 36.2 pg/mL (0-125)
== END ==
PROVIDERS: Visit Provider Internal Medicine Cardiovascular Disease
DX: I25.10 Atherosclerotic heart disease of native coronary artery without angina pectoris (principal); I50.9 Heart failure, unspecified; R06.00 Dyspnea, unspecified
CPT/HCPCS: 36415; 80048; 83880

== ENCOUNTER → 2022-02-15 09:39 | Outpatient (CLI) | payer MEDICARE, OTHER, SELFPAY ==
[2022-02-15 10:52] LABS: Anion Gap 19.4 mEq/L (5-15); Blood Urea Nitrogen 56 mg/dl (9-20); Calcium 9.5 mg/dl (8.4-10.2); Carbon Dioxide 24 mmol/L (22.0-30.0); Chloride 97 mmol/L (98-107); Estimated Glomerular Filt Rate 17 ml/min (>60); GFR (African American) 21 ML/MIN (>60); Glucose 151 mg/dl (74-100); Potassium 5.4 mmoL/L (3.5-5.1); Sodium 135 mmol/L (136-145)
[2022-02-15 11:00] LABS: NT Pro Brain Natriuretic Pep. 49.8 pg/mL (0-125)
== END ==
PROVIDERS: PCP Nurse Practitioner Family; Visit Provider Internal Medicine Cardiovascular Disease
DX: I25.10 Atherosclerotic heart disease of native coronary artery without angina pectoris (principal); I45.10 Unspecified right bundle-branch block; I50.32 Chronic diastolic (congestive) heart failure; R91.1 Solitary pulmonary nodule; R94.31 Abnormal electrocardiogram [ECG] [EKG]; I50.9 Heart failure, unspecified; R06.00 Dyspnea, unspecified; R60.0 Localized edema
CPT/HCPCS: 36415; 80048; 83880

== ENCOUNTER 2022-02-15 13:34 | Inpatient (IN) | payer MEDICARE, OTHER, SELFPAY ==
[2022-02-15] VITALS (13 sets, daily range): BP systolic 100–126; BP diastolic 66–87; PULSE 52–96; RESP 16–20; TEMP 36.5–36.9; O2SAT 92–99; BMI 40.5; BMI 40.7
--- NOTE | 2022-02-15 13:45 | ECG_ITS ---
APPROVED REPORT Exam: Resting ECG HR:95 bpm ECG Measurements Heart Rate 95 AXES [place] 163 P 80 QRSd 146 QRS 74 QT 364 T 57 QTc 417 Conclusion SINUS RHYTHM RIGHT BUNDLE BRANCH BLOCK [120+ ms QRS DURATION, UPRIGHT V1, 40+ ms S IN I/aVL/V4/V5/V6] ABNORMAL ECG UNCONFIRMED REPORT Electronically signed by : Alexander Underwood MD 02/15/2022 17:10:08
--- NOTE | 2022-02-15 13:50 | PC.NURSE ---
per Abby in cardiology office they requested pt be evaluated in ER r/t potassium levels. States potassium level has improved but is not back to baseline. Wanted pt to stop spironlactone and lisinopril pills, come to ER for evaluation, IVF and possible admission.
[2022-02-15 14:15] LABS: Basophils # 0.1 K/mm3 (0-0.2); Basophils % 1.1 % (0.1-2.0); Eosinophils # 0.1 K/mm3 (0.0-0.4); Eosinophils % 1.2 % (0.1-12.0); Hematocrit 41.4 % (42.0-52.0); Hemoglobin 13.8 g/dL (14.1-18.0); Lymphocytes # 1.8 K/mm3 (0.7-4.5); Lymphocytes % 24.5 % (10-50); Mean Corpuscular HGB Conc 33.4 g/dL (31.8-35.4); Mean Corpuscular Hemoglobin 32.6 pg (27.0-31.2); Mean Corpuscular Volume 97.6 fl (80-94); Mean Platelet Volume 7.7 fl (7.4-10.4); Monocytes # 0.5 K/mm3 (0.1-1.0); Monocytes % 6.8 % (1.7-9.3); Neutrophils % 66.5 % (37.0-80.0); Platelet Count 283 K/mm3 (142-424); Red Blood Count 4.24 M/mm3 (4.60-6.20); Red Cell Distribution Width 14.1 % (11.5-17.5); White Blood Count 7.5 K/mm3 (4.8-10.8)
[2022-02-15 14:20] LABS: Chloride 98 mmol/L (98-107); Potassium 5.3 mmoL/L (3.5-5.1); Sodium 134 mmol/L (136-145)
[2022-02-15 14:22] LABS: Blood Urea Nitrogen 56 mg/dl (9-20); Creatinine Clearance Estimated 36 mL/min (50-200); Estimated Glomerular Filt Rate 17 ml/min (>60); GFR (African American) 20 ML/MIN (>60)
[2022-02-15 14:23] LABS: Alanine Aminotransferase 32 U/L (12-78); Albumin Level 4.6 g/dl (3.5-5.0); Albumin/Globulin Ratio 1.4 (1.1-1.8); Alkaline Phosphatase 86 U/L (38-126); Anion Gap 17.3 mEq/L (5-15); Aspartate Amino Transferase 34 U/L (17-59); Bilirubin,Total 0.9 mg/dl (0.2-1.3); Calcium 9.9 mg/dl (8.4-10.2); Carbon Dioxide 24 mmol/L (22.0-30.0); Globulin 3.3 g/dL (1.3-3.2); Glucose 145 mg/dl (74-100); Total Protein,Serum 7.9 g/dl (6.3-8.2)
[2022-02-15 14:45] LABS: Troponin I < 0.01 ng/ml (0.00-0.034)
--- NOTE | 2022-02-15 14:59 | PC.NURSE ---
checked on pt at this time, resting in bed, states no needs. Will continue to monitor
--- NOTE | 2022-02-15 15:07 | HMH.EDGENADL ---
ED Disposition Clinical Impression: ANTONI (acute kidney injury), Hyperkalemia Disposition: Admitted as Observation Condition on Discharge: Good - Critical Care Critical Care Time: No Attestation: On 02/15/22, the high probability of a clinically significant, sudden or life threatening deterioration of the following system(s) required my full and direct attention, intervention and personal management. The time I documented below is in addition to time spent performing reported procedures but includes the following listed in this critical care notation. Medical Decision Making - Medical Records Medical records reviewed: Yes: I reviewed the patient's medical records. MR Comment: Reviewed discharge summary from admission 01/16/2022 through 01/18/2022. Admitted for chest pain after cardiac cath. Reviewed cardiology office notes from 01/25/2022 and 02/08/2022. On 01/25 patient's blood pressure was low, lisinopril was decreased. On 02/08/2022 potassium was stopped due to mildly elevated potassium, persistent, and Ranexa was started for persistent chest pain. - Filipe Inquiry Pt receiving controlled substance: No Vital Signs: 02/15/22 13:35 02/15/22 14:00 02/15/22 14:30 Temperature 97.7 F Temperature Source Oral Pulse Rate 96 H 81 Pulse Rate [Right Radial] 90 Respiratory Rate 18 20 16 Blood Pressure 119/87 118/81 Blood Pressure [Right Arm] 102/75 L Blood Pressure Mean 96 93 Blood Pressure Mean [Right Arm] 84 Blood Pressure Source [Right Arm] Automatic Cuff Blood Pressure Position [Right Arm] Sitting 02 Sat by Pulse Oximetry 99 92 L 94 L Oxygen Delivery Method Room Air Room Air 02/15/22 15:00 Temperature Temperature Source Pulse Rate 84 Pulse Rate [Right Radial] Respiratory Rate 16 Blood Pressure 100/66 L Blood Pressure [Right Arm] Blood Pressure Mean 80 Blood Pressure Mean [Right Arm] Blood Pressure Source [Right Arm] Blood Pressure Position [Right Arm] 02 Sat by Pulse Oximetry 95 Oxygen Delivery Method Room Air - Lab Data Lab Results 02/15/22 14:00: Sodium 134 L, Potassium 5.3 H, Chloride 98, Carbon Dioxide 24, Anion Gap 17.3 H, BUN 56 H, Creatinine 3.60 H, Estimated Creat Clear 36, Estimated GFR 17 L*, Est GFR ( Amer) 20 L, Glucose 145 H, Calcium 9.9, Total Bilirubin 0.9, AST 34, ALT 32, Alkaline Phosphatase 86, Troponin I < 0.01, Total Protein 7.9, Albumin 4.6, Globulin 3.3 H, Albumin/Globulin Ratio 1.4 02/15/22 14:00: WBC 7.5, RBC 4.24 L, Hgb 13.8 L, Hct 41.4 L, MCV 97.6 H, MCH 32.6 H, MCHC 33.4, RDW 14.1, Plt Count 283, MPV 7.7, Neut % (Auto) 66.5, Lymph % (Auto) 24.5, [place] % (Auto) 6.8, Eos % (Auto) 1.2, Baso % (Auto) 1.1, Neut # (Auto) 5.0, Lymph # (Auto) 1.8, [place] # (Auto) 0.5, Eos # (Auto) 0.1, Baso # (Auto) 0.1 Result diagrams: 02/15/22 14:00 02/15/22 14:00 Orders (Tests/Meds): ED MEDICATIONS Generic Name Dose Route Start Last Admin Trade Name Freq PRN Reason Stop Dose Admin Sodium Chloride 1,000 mls @ 150 mls/hr 02/15/22 15:15 02/15/22 15:18 Sod Chlor 0.9% 1000ml Bag IV 03/17/22 15:14 150 mls/hr .Q6H40M NONA Administration Sodium Chloride 1,000 mls @ 150 mls/hr 02/15/22 16:30 02/15/22 16:31 Sod Chlor 0.9% 1000ml Bag IV 03/17/22 16:29 150 mls/hr .Q6H40M NONA Administration Sodium Chloride 10 ml 02/15/22 13:57 Sodium Chloride 0.9% 10ml Flush Syringe IV 03/17/22 13:56 NEEDED PRN Maintain IV Site ORDERS Category Date Time Status Rapid PCR Covid and Flu A/B Stat Lab 02/15/22 15:51 Received - ECG Data Tracing #1 EKG interpreted by Seun Pinto MD: Rhythm: sinus Rate: 95 [place]: normal Ectopy: none Conduction: Right bundle branch block ST Segment Changes: none T Wave Changes: none Q Waves: none No evidence of acute ischemia or injury Baseline artifact present. - Physician Consults Physician Consulted: Moris Time: 15:51 Reason -: Admission Comment/Response: Agrees to admit the patient to the
--- NOTE | 2022-02-15 15:12 | PC.NURSE ---
paged [email or web address]@ [phone]
--- NOTE | 2022-02-15 15:47 | PC.NURSE ---
speaking with BETTY
--- NOTE | 2022-02-15 15:53 | PC.NURSE ---
notified care management of admission, spoke with Romi. Pt will be an OBS admission per Dr. Subramanian, care management okayed this admission status.
[2022-02-15 15:56] LABS: Coronavirus 19, PCR Not Detected (NotDetected); Influenza A, PCR Not Detected (NotDetected); Influenza B, PCR Not Detected (NotDetected)
--- NOTE | 2022-02-15 16:50 | PC.NURSE ---
checked on pt at this time, updated him we are just waiting on his covid swab so he can be transferred up to second floor. Pt states no needs at this time will continue to monitor
--- NOTE | 2022-02-15 17:23 | PC.NURSE ---
attempted to call report to second floor, no answer from receiving nurse, chief warden states she will have them call us back
--- NOTE | 2022-02-15 17:28 | PC.NURSE ---
report called to eduardo wiley on second floor at this time. States she will send staff down to transport pt.
--- NOTE | 2022-02-15 20:54 | HMH.HP ---
*Admission Date: 02/15/22 *Chief complaint: weakness *History of present illness: this patient presented to the [facility] ed with : Pt was sent to ER per cardiology office request after they received blood work results from this morning on pt. Contacted cardiology office, spoke with carmen who advised pt needed to be evaluated r/t potassium level not back to baseline pt may need ivf and possible admission. Patient states that he had outpatient labs drawn today, apparently by cardiology. He received a call stating that he needed to come to the emergency room for evaluation. Cardiology office called us prior to his arrival. He has elevated BUN, creatinine, mildly elevated potassium. He reports feeling weak currently but otherwise and has no current symptoms. No recent fever, vomiting, diarrhea. He does get occasional chest pains and left arm numbness, but does not have those symptoms currently. [facility] History I have reviewed the patient's past medical history: Yes Medical History: Reports:: Congestive Heart Failure, Hypertension Denies:: Cancer, Diabetes Mellitus Type 1, Diabetes Mellitus Type 2, Internal Pacemaker, MRSA, Seizures *Have you ever received a pneumonia vaccine?: Yes *Have you received a flu vaccine this season?: Yes Other Medical History: Reports: Arthritis Laterality Cases: Left: Other Other Surgeries: Yes: CABG, Cardiac Catheterization. No: Pacemaker Amputation: No Fractures: No - *Social History Last grade of school completed: 7th or 8th Smoking Status: Former smoker Tobacco Type: cigarettes Alcohol Intake: current Alcohol Intake Frequency:: holidays/special occasions only *Occupational Status:: retired Housing: house *Travel in the last 8 weeks: None Family Hx:: No significant family history Review of Systems - Review of Systems Review of systems:: pertinent systems reviewed and negative unless documented below - Constitutional Reports weakness - Eyes Reports blurry vision - ENT Denies sore throat - *Cardiovascular Denies chest pain at rest - *Respiratory Denies cough - *Gastrointestinal Denies abdominal pain - *Genitourinary Denies blood in urine - *Musculoskeletal Denies joint pain - Integumentary/Breasts Denies rash - *Neurologic Reports tingling (Left arm), Reports weakness, Denies localized weakness, Denies headache(s) - Psychiatric Denies behavioral changes Meds Home Medications Medication Instructions Recorded Confirmed Type aspirin 81 mg tablet,delayed 81 mg PO DAILY 08/28/21 02/15/22 History release tiotropium 2.5 mcg-olodaterol 2.5 2 puff IH DAILY 12/14/21 02/15/22 History mcg/actuation mist for inhalation torsemide 20 mg tablet 40 mg PO DAILY tab 12/14/21 02/15/22 History spironolactone 25 mg tablet 50 mg PO DAILY tab 02/08/22 02/15/22 History Ranolazine [Ranolazine ER] 500 mg PO BID 02/15/22 02/15/22 History lisinopriL [Lisinopril] 5 mg PO DAILY 02/15/22 02/15/22 History Allergies Allergy/AdvReac Type Severity Reaction Status Date / Time No Known Drug Allergies Allergy Unknown Verified 02/08/22 11:00 Exam Vital signs and Labs for Last 24 Hours: Temp Pulse Resp BP Pulse Ox 98.4 F 85 20 105/69 L 92 L 02/15/22 19:56 02/15/22 19:56 02/15/22 19:56 02/15/22 19:56 02/15/22 19:56 Laboratory Results - last 24 hr 02/15/22 14:00: Sodium 134 L, Potassium 5.3 H, Chloride 98, Carbon Dioxide 24, Anion Gap 17.3 H, BUN 56 H, Creatinine 3.60 H, Estimated Creat Clear 36, Estimated GFR 17 L*, Est GFR ( Amer) 20 L, Glucose 145 H, Calcium 9.9, Total Bilirubin 0.9, AST 34, ALT 32, Alkaline Phosphatase 86, Troponin I < 0.01, Total Protein 7.9, Albumin 4.6, Globulin 3.3 H, Albumin/Globulin Ratio 1.4 02/15/22 14:00: WBC 7.5, RBC 4.24 L, Hgb 13.8 L, Hct 41.4 L, MCV 97.6 H, MCH 32.6 H, MCHC 33.4, RDW 14.1, Plt Count 283, MPV 7.7, Neut % (Auto) 66.5, Lymph % (Auto) 24.5, [place] % (Auto) 6.8, Eos % (Auto) 1.2, Baso % (Auto) 1.1, Neut # (Auto) 5.0, Ly
[2022-02-16] VITALS (10 sets, daily range): BP systolic 97–123; BP diastolic 64–84; PULSE 60–80; RESP 18–22; TEMP 36.5–36.7; O2SAT 92–96; BMI 40.8
--- NOTE | 2022-02-16 04:41 | PC.NURSE ---
NO ACUTE CHANGES FROM PREVIOUS ASSESSMENT. LUNGS REMAIN CTA, IV RATE REMAINS AT 150ML/HR. PT HAS RESTED WELL THIS SHIFT WITH NO COMPLAINTS. WILL CONTINUE TO MONITOR.
[2022-02-16 07:26] LABS: Chloride 105 mmol/L (98-107); Sodium 134 mmol/L (136-145)
[2022-02-16 07:29] LABS: Blood Urea Nitrogen 45 mg/dl (9-20); Calcium 8.4 mg/dl (8.4-10.2); Carbon Dioxide 22 mmol/L (22.0-30.0); Creatinine Clearance Estimated 52 mL/min (50-200); Estimated Glomerular Filt Rate 26 ml/min (>60); GFR (African American) 31 ML/MIN (>60); Glucose 137 mg/dl (74-100)
--- NOTE | 2022-02-16 09:20 | HMH.ACPN2 ---
Internal Medicine - PN: Subj *Date: 02/16/22 *Time: 19:50 Interval history: pt with dizzyness but improved renal function Exam Vital signs and Labs for Last 24 Hours: Temp Pulse Resp BP Pulse Ox 97.7 F 80 18 123/84 95 02/16/22 07:28 02/16/22 08:00 02/16/22 07:28 02/16/22 07:28 02/16/22 07:28 Laboratory Results - last 24 hr 02/15/22 14:00: Sodium 134 L, Potassium 5.3 H, Chloride 98, Carbon Dioxide 24, Anion Gap 17.3 H, BUN 56 H, Creatinine 3.60 H, Estimated Creat Clear 36, Estimated GFR 17 L*, Est GFR ( Amer) 20 L, Glucose 145 H, Calcium 9.9, Total Bilirubin 0.9, AST 34, ALT 32, Alkaline Phosphatase 86, Troponin I < 0.01, Total Protein 7.9, Albumin 4.6, Globulin 3.3 H, Albumin/Globulin Ratio 1.4 02/15/22 14:00: WBC 7.5, RBC 4.24 L, Hgb 13.8 L, Hct 41.4 L, MCV 97.6 H, MCH 32.6 H, MCHC 33.4, RDW 14.1, Plt Count 283, MPV 7.7, Neut % (Auto) 66.5, Lymph % (Auto) 24.5, [place] % (Auto) 6.8, Eos % (Auto) 1.2, Baso % (Auto) 1.1, Neut # (Auto) 5.0, Lymph # (Auto) 1.8, [place] # (Auto) 0.5, Eos # (Auto) 0.1, Baso # (Auto) 0.1 02/15/22 15:51: SARS-CoV-2 (PCR) Not detected, Influenza A Untype (PCR) Not detected, Influenza Type B (PCR) Not detected 02/16/22 06:44: Sodium 134 L, Potassium 5.0, Chloride 105, Carbon Dioxide 22, Anion Gap 12.0, BUN 45 H, Creatinine 2.50 H D, Estimated Creat Clear 52, Estimated GFR 26 L, Est GFR ( Amer) 31 L D, Glucose 137 H, Calcium 8.4 I & O for Last 24 hours: Intake & Output 02/13/22 02/14/22 02/15/22 02/16/22 11:59 11:59 11:59 11:59 Intake Total 1788 / 1788 Output Total 300 / 300 Balance 1488 / 1488 Weight 301 lb 14.4 oz - Constitutional no acute distress, obese - *Routine HEENT Exam Head: Present: normocephalic Eye: Present: EOMI, PERRL ENT: Present: mucous membranes dry - *Routine Neck Exam Absent: JVD - *Routine Respiratory Exam Present: decreased breath sounds - *Routine Cardiovascular Exam Present: RRR, murmur, S4 - *Routine Abdominal Exam Present: soft - *Routine Extremities Exam Absent: calf tenderness - *Routine Skin Exam Present: intact - *Routine Neurological Exam Present: alert, CN II-XII intact - Routine Psychiatric Exam Present: normal affect Assessment and Plan (1) Obesity Status: Acute Qualifiers: Obesity type: due to excess calories Obesity classification: adult class 3 (BMI >= 40) Serious obesity comorbidity presence: with serious comorbidity Body mass index: BMI 40.0-44.9 Qualified Code(s): E66.01 - Morbid (severe) obesity due to excess calories; Z68.41 - Body mass index [BMI] 40.0-44.9, adult Category: Medical Code(s): E66.9 - Obesity, unspecified (2) ANTONI (acute kidney injury) Status: Acute Category: Medical Code(s): N17.9 - Acute kidney failure, unspecified (3) Elevated left ventricular end-diastolic pressure (LVEDP) Status: Acute Category: Medical Code(s): R94.30 - Abnormal result of cardiovascular function study, unspecified (4) CAD (coronary artery disease) Status: Chronic Qualifiers: Coronary Disease-Associated Artery/Lesion type: [place] artery [place] vs. transplanted heart: [place] heart Associated angina: without angina Qualified Code(s): I25.10 - Atherosclerotic heart disease of [place] coronary artery without angina pectoris Category: Medical Code(s): I25.10 - Atherosclerotic heart disease of [place] coronary artery without angina pectoris (5) Right bundle branch block Status: Acute Category: Medical Code(s): I45.10 - Unspecified right bundle-branch block
--- NOTE | 2022-02-16 11:51 | HMH.PHAINT ---
Addendum entered and electronically signed by Karan Jung PharmD 02/16/22 11:53: MEDICATION RECONCILIATION COMPLETE USING THE BELOW SOURCES, NOT DISCHARGE RECONCILIATION Original Note: DISCHARGE MEDICATION RECONCILIATION COMPLETE USING RECENT HOSPITAL DISCHARGE NOTE, RECENT MD OFFICE VISIT, AND EXTERNAL PHARMACY FILL HISTORY.
--- NOTE | 2022-02-16 11:52 | P.CONPHA_ITS ---
[facility] Pharmacy VTE Monitoring - Patient Demographics Admission date: 02/15/22 Report Date: 02/16/22 Time: 11:52 Allergies/Adverse Reactions: Patient Allergies No Known Drug Allergies Allergy (Unknown, Verified 02/08/22 11:00) Height: 1.83 m Weight: 136.94 kg Patient Problems: Current Active Problems ANTONI (acute kidney injury) (Acute) Hyperkalemia (Acute) Elevated left ventricular end-diastolic pressure (LVEDP) (Acute) Obesity (Acute) CAD (coronary artery disease) (Chronic) Right bundle branch block (Acute) - VTE Risk Labs: VTE Related Lab Results Hgb 13.8 g/dL (14.1-18.0) L 02/15/22 14:00 Hct 41.4 % (42.0-52.0) L 02/15/22 14:00 Plt Count 283 K/mm3 (142-424) 02/15/22 14:00 BUN 45 mg/dl (9-20) H 02/16/22 06:44 Creatinine 2.50 mg/dl (0.66-1.25) H D 02/16/22 06:44 Estimated Creat Clear 52 mL/min (50-200) 02/16/22 06:44 Was VTE Risk Assessment Performed: Yes VTE Score: 5 VTE Risk Level: Low Risk Clinical Trial Participant: No - Prophylaxis VTE Prophylaxis Ordered?: Yes Types of VTE Prophylaxis: TEDS Knee High Location of Applied Device: Bilateral Lower Extremeties
--- NOTE | 2022-02-16 16:23 | PC.NURSE ---
Called and spoke with Dr. Subramanian in re to pt's abd being more swollen than it was this am. IVF's on hold at this time per Dr. Subramanian. Abd soft and non tender, hernia to upper abd prominent. VSS. MX continues.
--- NOTE | 2022-02-16 18:45 | PC.NURSE ---
This RN has offered pt a shower and encouraged pt to shower multiple times this shift. Pt refused this am and then stated he would take a shower later today. This RN just went and requested pt take a shower and had all supplies rdy. Pt stated he wanted to wait until paolo to shower. Will encourage scene shifter staff to offer shower to pt as well.
[2022-02-17] VITALS (12 sets, daily range): BP systolic 107–160; BP diastolic 69–90; PULSE 58–90; RESP 18–22; TEMP 36.4–36.6; O2SAT 95–97; BMI 40.8
--- NOTE | 2022-02-17 04:45 | PC.NURSE ---
Patient rested throughout night. Patient allowed staff to assist with bath. Patient voiding several times throughout shift. VSS. No new compliments expressed.
[2022-02-17 09:01] LABS: Basophils # 0.1 K/mm3 (0-0.2); Basophils % 1.8 % (0.1-2.0); Eosinophils # 0.2 K/mm3 (0.0-0.4); Eosinophils % 2.9 % (0.1-12.0); Hematocrit 38.3 % (42.0-52.0); Lymphocytes # 1.4 K/mm3 (0.7-4.5); Lymphocytes % 25.2 % (10-50); Mean Corpuscular Hemoglobin 33.5 pg (27.0-31.2); Mean Corpuscular Volume 98.4 fl (80-94); Mean Platelet Volume 7.9 fl (7.4-10.4); Monocytes # 0.3 K/mm3 (0.1-1.0); Monocytes % 6.4 % (1.7-9.3); Neutrophils # 3.4 K/mm3 (1.8-7.8); Neutrophils % 63.8 % (37.0-80.0); Platelet Count 237 K/mm3 (142-424); Red Blood Count 3.89 M/mm3 (4.60-6.20); Red Cell Distribution Width 13.9 % (11.5-17.5); White Blood Count 5.3 K/mm3 (4.8-10.8)
[2022-02-17 09:21] LABS: Chloride 104 mmol/L (98-107); Potassium 4.8 mmoL/L (3.5-5.1); Sodium 134 mmol/L (136-145)
[2022-02-17 09:24] LABS: Alanine Aminotransferase 32 U/L (12-78); Albumin/Globulin Ratio 1.3 (1.1-1.8); Alkaline Phosphatase 69 U/L (38-126); Aspartate Amino Transferase 36 U/L (17-59); Bilirubin,Total 0.7 mg/dl (0.2-1.3); Blood Urea Nitrogen 27 mg/dl (9-20); Calcium 8.9 mg/dl (8.4-10.2); Creatinine Clearance Estimated 72 mL/min (50-200); Estimated Glomerular Filt Rate 37 ml/min (>60); GFR (African American) 45 ML/MIN (>60); Glucose 177 mg/dl (74-100)
[2022-02-17 10:08] LABS: Anion Gap 12.8 mEq/L (5-15); Carbon Dioxide 22 mmol/L (22.0-30.0)
--- NOTE | 2022-02-17 12:00 | HMH.ACPN2 ---
Internal Medicine - PN: Subj *Date: 02/17/22 *Time: 20:08 Interval history: doing better - labs improved Exam Vital signs and Labs for Last 24 Hours: Temp Pulse Resp BP Pulse Ox 97.8 F 77 18 127/90 97 02/17/22 10:56 02/17/22 10:56 02/17/22 10:56 02/17/22 10:56 02/17/22 10:56 Laboratory Results - last 24 hr 02/17/22 08:52: WBC 5.3 D, RBC 3.89 L, Hgb 13.0 L, Hct 38.3 L, MCV 98.4 H, MCH 33.5 H, MCHC 34.0, RDW 13.9, Plt Count 237, MPV 7.9, Neut % (Auto) 63.8, Lymph % (Auto) 25.2, [place] % (Auto) 6.4, Eos % (Auto) 2.9, Baso % (Auto) 1.8, Neut # (Auto) 3.4, Lymph # (Auto) 1.4, [place] # (Auto) 0.3, Eos # (Auto) 0.2, Baso # (Auto) 0.1 02/17/22 08:52: Sodium 134 L, Potassium 4.8, Chloride 104, Carbon Dioxide 22, Anion Gap 12.8, BUN 27 H D, Creatinine 1.80 H D, Estimated Creat Clear 72, Estimated GFR 37 L, Est GFR ( Amer) 45 L D, Glucose 177 H, Calcium 8.9, Total Bilirubin 0.7, AST 36, ALT 32, Alkaline Phosphatase 69, Total Protein 7.0, Albumin 4.0, Globulin 3.0, Albumin/Globulin Ratio 1.3 I & O for Last 24 hours: Intake & Output 02/15/22 02/16/22 02/17/22 02/18/22 11:59 11:59 11:59 11:59 Intake Total 1788 / 1788 2982 / 2982 Output Total 300 / 300 2300 / 2300 Balance 1488 / 1488 682 / 682 Weight 301 lb 14.4 oz 301 lb 11.2 oz - Constitutional no acute distress, obese - *Routine HEENT Exam Head: Present: normocephalic Eye: Present: EOMI, PERRL ENT: Present: mucous membranes dry - *Routine Neck Exam Absent: JVD - *Routine Respiratory Exam Present: decreased breath sounds - *Routine Cardiovascular Exam Present: RRR, murmur, S4 - *Routine Abdominal Exam Present: soft, obese. Absent: tenderness - *Routine Extremities Exam Absent: calf tenderness - *Routine Skin Exam Present: intact - *Routine Neurological Exam Present: alert, CN II-XII intact - Routine Psychiatric Exam Present: cooperative Assessment and Plan (1) Obesity Status: Acute Qualifiers: Obesity type: due to excess calories Obesity classification: adult class 3 (BMI >= 40) Serious obesity comorbidity presence: with serious comorbidity Body mass index: BMI 40.0-44.9 Qualified Code(s): E66.01 - Morbid (severe) obesity due to excess calories; Z68.41 - Body mass index [BMI] 40.0-44.9, adult Category: Medical Code(s): E66.9 - Obesity, unspecified (2) ANTONI (acute kidney injury) Status: Acute Category: Medical Code(s): N17.9 - Acute kidney failure, unspecified (3) Elevated left ventricular end-diastolic pressure (LVEDP) Status: Acute Category: Medical Code(s): R94.30 - Abnormal result of cardiovascular function study, unspecified (4) CAD (coronary artery disease) Status: Chronic Qualifiers: Coronary Disease-Associated Artery/Lesion type: [place] artery [place] vs. transplanted heart: [place] heart Associated angina: without angina Qualified Code(s): I25.10 - Atherosclerotic heart disease of [place] coronary artery without angina pectoris Category: Medical Code(s): I25.10 - Atherosclerotic heart disease of [place] coronary artery without angina pectoris (5) Right bundle branch block Status: Acute Category: Medical Code(s): I45.10 - Unspecified right bundle-branch block
--- NOTE | 2022-02-17 18:01 | PC.NURSE ---
PT PASSWORD - DALI
--- NOTE | 2022-02-17 18:03 | PC.NURSE ---
PT IS A&O X4. PT HAS BEEN CONCERNED ABOUT URINARY OUTPUT THIS SHIFT. HE HAS BEEN ENSURED UO IS ADEQUATE. URINE IS CLEAR/YELLOW WITH NO ODOR. PT USES URINAL INDEPENDENTLY. HE HAS AMBULATED INDEPENDENTLY TODAY. LUNG SOUNDS CLEAR ON AUSCULTATION. NO EDEMA NOTED. SCATTERED BRUISING NOTED ON BLE. NO C/O PAIN. VSS.
[2022-02-18] VITALS: PULSE 62
[2022-02-18 04:00] VITALS: BP 106/60; PULSE 55; PULSE 64; RESP 20; TEMP 36.7; O2SAT 95
--- NOTE | 2022-02-18 04:34 | PC.NURSE ---
Patient alert and oriented x4, no c/o pain or discomfort this shift. No acute changes this shift. Call light in place and working appropriately.
[2022-02-18 05:00] VITALS: BMI 40.8
[2022-02-18 06:20] VITALS: BMI 40.7
[2022-02-18 08:00] VITALS: BP 135/85; PULSE 76; PULSE 80; RESP 18; TEMP 36.6; O2SAT 94
--- NOTE | 2022-02-18 09:56 | HMH.OTEV ---
OT Inpatient Evaluation Rehab OT IP Evaluation Start: 02/18/22 09:24 Freq: ONCE Status: Complete Protocol: Document 02/18/22 09:51 [facility] (Rec: 02/18/22 09:56 [facility] [id number]) Rehab OT IP Assessment Subjective History Pt oriented x 3 on arrival. Pt agreeable to engage in therapy evaluation. Pt was admitted via ED on 02/15/22 due to weakness. Pt reports prior to being in the hosptial he lived at home alone. Pt claims he was independent with all ADLs (dressing, feeding, and bathing) and was independent with all IADLs. Pt also still drove. The following information was copied from history and physical report: this patient presented to the [facility] ed with : Pt was sent to ER per cardiology office request after they received blood work results from this morning on pt. Contacted cardiology office, spoke with carmen who advised pt needed to be evaluated r/t potassium level not back to baseline pt may need ivf and possible admission. Patient states that he had outpatient labs drawn today, apparently by cardiology. He received a call stating that he needed to come to the emergency room for evaluation. Cardiology office called us prior to his arrival. He has elevated BUN, creatinine, mildly elevated potassium. He reports feeling weak currently but otherwise and has no current symptoms. No recent fever, vomiting, diarrhea. He does get occasional chest pains and left arm numbness, but does not have those symptoms currently Subjective I don't need any help.
--- NOTE | 2022-02-18 10:06 | HMH.PTEV ---
Physical Therapy Evaluation Rehab PT IP Evaluation Start: 02/18/22 09:22 Freq: ONCE Status: Active Protocol: Document 02/18/22 10:04 DENEEN (Rec: 02/18/22 10:06 DENEEN [id number]) Subjective/History History History 71 yowm adm to [facility] with ANTONI. He reports he is independent with all mobility at baseline and lives alone with 1-2 steps to enter the home. Subjective Subjective No new c/o this am, reports he feels better. He c/o pain in the L knee with ambulation only, but did not rate. Rehab PT IP Eval Objective Appearance Patient Behavior Appropriate Patient Orientation Person,Place,Time Difficulty following instructions none Speech Pattern Clear Ambulation Patient Able to Ambulate Yes Ambulation Observation IP General Gait Pattern Observation Antalgic Gait Ambulation Distance (feet) 30 Ambulation Assistive Device None Ambulation Ability Independent Balance Ability to Arise Able, uses arms to help Sitting Balance Steady, safe Standing Balance Steady, wide stance Dynamic Sitting Balance Ability Good Dynamic Standing Balance Ability Fair Transfers Bed Transfer Ability Independent Chair Transfer Ability Independent Sit to Stand Bed Transfer Ability Independent Sit to Stand Chair Transfer Ability Independent Rehab PT IP prob,goals,plan Problems Date of Evaluation: 02/18/22 Discharge Plan PT Discharge Plan Pt is currently at baseline for all mobility and is appropriate to return home once medically stable. G -code Required No Eval Complexity Eval Charge Codes 29533 - Moderate Complexity PHYSICIAN CERTIFICATION: I certify the specified therapy services for Stuart Solomon are required, authorized, and reviewed every 30 days.
--- NOTE | 2022-02-18 10:18 | SW/DCPLANNER ---
Addendum entered by Asiya Salazar 02/20/22 10:28: Abby hampton/ [facility] reviewed patient information/order and stated that patient has been accepted and will begin services this week. Addendum entered by Asiya Salazar 02/19/22 15:43: Patient information/order faxed to [facility]. I will follow up with Abby once information is reviewed. Original Note: I received a referral on this patient regarding discharge planning. Patient resides at home and is still able to drive himself. PT/OT evaluated this patient this AM and stated that this patient is currently at baseline and is able to return home. Patient has no further needs at this time. Patient will discharge home this afternoon.
--- NOTE | 2022-02-18 11:22 | HMH.CNCARD ---
History of Present Illness Consult date: 02/18/22 Requesting physician: Luis Enrique Subramanian Chief complaint: abnormal labs Additional Medical History:: prior hx: CAD CHF HTN History of present illness: 71 year old male with past medical hx of CAD s/p cabg and stents, CHF, and HTN presented to ER on friday for abnormal labs. Routine labs were drawn in cardiology office and potassium and creatinine were both elevated. Potassium was 5.40 and creatinine was 3.50. patient was admitted for fluids over the weekend and mely and aldactone held. today creatinine back down to 1.8 and potassium is now 4.8. patient denies any soa or chest pain. [facility] History Medical History: Reports:: Congestive Heart Failure, Hypertension Denies:: Cancer, Diabetes Mellitus Type 1, Diabetes Mellitus Type 2, Internal Pacemaker, MRSA, Seizures *Have you ever received a pneumonia vaccine?: Yes *Have you received a flu vaccine this season?: Yes Other Medical History: Reports: Arthritis Laterality Cases: Left: Other Other Surgeries: Yes: CABG, Cardiac Catheterization. No: Pacemaker Amputation: No Fractures: No - *Social History Last grade of school completed: 7th or 8th Smoking Status: Former smoker Tobacco Type: cigarettes Alcohol Intake: current Alcohol Intake Frequency:: holidays/special occasions only *Occupational Status:: retired Housing: house *Travel in the last 8 weeks: None Family Hx:: No significant family history Meds Home Medications Medication Instructions Recorded Confirmed Type aspirin 81 mg tablet,delayed 81 mg PO DAILY 08/28/21 02/15/22 History release tiotropium 2.5 mcg-olodaterol 2.5 2 puff IH DAILY 12/14/21 02/15/22 History mcg/actuation mist for inhalation torsemide 20 mg tablet 40 mg PO DAILY tab 12/14/21 02/15/22 History spironolactone 25 mg tablet 50 mg PO DAILY tab 02/08/22 02/15/22 History Ranolazine [Ranolazine ER] 500 mg PO BID 02/15/22 02/15/22 History lisinopriL [Lisinopril] 5 mg PO DAILY 02/15/22 02/15/22 History Allergies Allergy/AdvReac Type Severity Reaction Status Date / Time No Known Drug Allergies Allergy Unknown Verified 02/08/22 11:00 Exam Vital signs and Labs for Last 24 Hours: Temp Pulse Resp BP Pulse Ox 97.9 F 76 18 135/85 94 L 02/18/22 08:00 02/18/22 08:00 02/18/22 08:00 02/18/22 08:00 02/18/22 08:00 I & O for Last 24 hours: Intake & Output 02/15/22 02/16/22 02/17/22 02/18/22 23:59 23:59 23:59 23:59 Intake Total 4050 / 4170 1800 / 2040 960 / 960 Output Total 1450 / 1750 2400 / 2400 530 / 530 Balance 2600 / 2420 -600 / -360 430 / 430 Weight 300 lb 5 oz 301 lb 14.416 oz 301 lb 11.2 oz 301 lb - Constitutional no acute distress, obese - *Routine Respiratory Exam Present: CTA bilaterally - *Routine Cardiovascular Exam Comments: nsr noted, RBBB present - *Routine Extremities Exam Absent: cyanosis, clubbing, edema - *Routine Skin Exam Present: warm. Absent: rash Review of Systems - Review of Systems Review of systems:: pertinent systems reviewed and negative unless documented below - *Neurologic Reports tingling (Left arm), Reports weakness, Denies behavioral changes, Denies localized weakness, Denies headache(s) Assessment and Plan (1) Obesity Status: Acute Qualifiers: Obesity type: due to excess calories Obesity classification: adult class 3 (BMI >= 40) Serious obesity comorbidity presence: with serious comorbidity Body mass index: BMI 40.0-44.9 Qualified Code(s): E66.01 - Morbid (severe) obesity due to excess calories; Z68.41 - Body mass index [BMI] 40.0-44.9, adult Category: Medical Code(s): E66.9 - Obesity, unspecified (2) ANTONI (acute kidney injury) Status: Acute Category: Medical Code(s): N17.9 - Acute kidney failure, unspecified (3) Elevated left ventricular end-diastolic pressure (LVEDP) Status: Acute Category: Medical Code(s): R94.30 - Abnormal result of cardiovascular function study, unspecif
--- NOTE | 2022-02-18 11:51 | HMH.DCSUM ---
General - General Admission date:: 02/16/22 Discharge date: 02/18/22 HPI HPI: this patient presented to the [facility] ed with : Pt was sent to ER per cardiology office request after they received blood work results from this morning on pt. Contacted cardiology office, spoke with carmen who advised pt needed to be evaluated r/t potassium level not back to baseline pt may need ivf and possible admission. Patient states that he had outpatient labs drawn today, apparently by cardiology. He received a call stating that he needed to come to the emergency room for evaluation. Cardiology office called us prior to his arrival. He has elevated BUN, creatinine, mildly elevated potassium. He reports feeling weak currently but otherwise and has no current symptoms. No recent fever, vomiting, diarrhea. He does get occasional chest pains and left arm numbness, but does not have those symptoms currently. Hospital Course Hospital Course: Laboratory Last Values WBC 5.3 K/mm3 (4.8-10.8) D 02/17/22 08:52 RBC 3.89 M/mm3 (4.60-6.20) L 02/17/22 08:52 Hgb 13.0 g/dL (14.1-18.0) L 02/17/22 08:52 Hct 38.3 % (42.0-52.0) L 02/17/22 08:52 MCV 98.4 fl (80-94) H 02/17/22 08:52 MCH 33.5 pg (27.0-31.2) H 02/17/22 08:52 MCHC 34.0 g/dL (31.8-35.4) 02/17/22 08:52 RDW 13.9 % (11.5-17.5) 02/17/22 08:52 Plt Count 237 K/mm3 (142-424) 02/17/22 08:52 MPV 7.9 fl (7.4-10.4) 02/17/22 08:52 Neut % (Auto) 63.8 % (37.0-80.0) 02/17/22 08:52 Lymph % (Auto) 25.2 % (10-50) 02/17/22 08:52 Bradford % (Auto) 6.4 % (1.7-9.3) 02/17/22 08:52 Eos % (Auto) 2.9 % (0.1-12.0) 02/17/22 08:52 Baso % (Auto) 1.8 % (0.1-2.0) 02/17/22 08:52 Neut # (Auto) 3.4 K/mm3 (1.8-7.8) 02/17/22 08:52 Lymph # (Auto) 1.4 K/mm3 (0.7-4.5) 02/17/22 08:52 Bradford # (Auto) 0.3 K/mm3 (0.1-1.0) 02/17/22 08:52 Eos # (Auto) 0.2 K/mm3 (0.0-0.4) 02/17/22 08:52 Baso # (Auto) 0.1 K/mm3 (0-0.2) 02/17/22 08:52 Sodium 134 mmol/L (136-145) L 02/17/22 08:52 Potassium 4.8 mmoL/L (3.5-5.1) 02/17/22 08:52 Chloride 104 mmol/L (98-107) 02/17/22 08:52 Carbon Dioxide 22 mmol/L (22.0-30.0) 02/17/22 08:52 Anion Gap 12.8 mEq/L (5-15) 02/17/22 08:52 BUN 27 mg/dl (9-20) H D 02/17/22 08:52 Creatinine 1.80 mg/dl (0.66-1.25) H D 02/17/22 08:52 Estimated Creat Clear 72 mL/min (50-200) 02/17/22 08:52 Estimated GFR 37 ml/min (>60) L 02/17/22 08:52 Est GFR ( Amer) 45 ML/MIN (>60) L D 02/17/22 08:52 Glucose 177 mg/dl (74-100) H 02/17/22 08:52 Calcium 8.9 mg/dl (8.4-10.2) 02/17/22 08:52 Total Bilirubin 0.7 mg/dl (0.2-1.3) 02/17/22 08:52 AST 36 U/L (17-59) 02/17/22 08:52 ALT 32 U/L (12-78) 02/17/22 08:52 Alkaline Phosphatase 69 U/L (38-126) 02/17/22 08:52 Troponin I < 0.01 ng/ml (0.00-0.034) 02/15/22 14:00 Total Protein 7.0 g/dl (6.3-8.2) 02/17/22 08:52 Albumin 4.0 g/dl (3.5-5.0) 02/17/22 08:52 Globulin 3.0 g/dL (1.3-3.2) 02/17/22 08:52 Albumin/Globulin Ratio 1.3 (1.1-1.8) 02/17/22 08:52 SARS-CoV-2 (PCR) Not detected (NotDetected) 02/15/22 15:51 Influenza A Untype (PCR) Not detected (NotDetected) 02/15/22 15:51 Influenza Type B (PCR) Not detected (NotDetected) 02/15/22 15:51 Assessment and Plan (1) Obesity Status: Acute Qualifiers: Obesity type: due to excess calories Obesity classification: adult class 3 (BMI >= 40) Serious obesity comorbidity presence: with serious comorbidity Body mass index: BMI 40.0-44.9 Qualified Code(s): E66.01 - Morbid (severe) obesity due to excess calories; Z68.41 - Body mass index [BMI] 40.0-44.9, adult Category: Medical Code(s): E66.9 - Obesity, unspecified (2) ANTONI (acute kidney injury) Status: Acute Category: Medical Code(s): N17.9 - Acute
--- NOTE | 2022-02-18 11:54 | HMH.DCSUM ---
General - General Admission date:: 02/16/22 Discharge date: 02/18/22 Hospital Course Hospital Course: Discharge Plan (1) Obesity- continue low fat/carb/calorie diet (2) ANTONI (acute kidney injury)-Creatinine 3.50 on admission,02/18-cre 1.8,potassium was 5.4 on admission today 4.8,resume mely/arb today, check labs in 1 week (3) Elevated left ventricular end-diastolic pressure (LVEDP)-Echo 09/2021- Biatrial enlargement, EF 50, DD grade 1, trace mr and TR,Continue diuretics,continue to hold aldactone for now, cardiology will reassess in office. (4) CAD (coronary artery disease)-12/2021- Medical management heart cath,continue aspirin, BB, statin (5) Right bundle branch block-continue to follow up with cardiology cardiology consult Assessment and plan all Dx Assessment and Plan for all problems:: Acute on Chronic renal insufficiency with abnormal labs- Resolving -Creatinine 3.50 on admission. Today 1.8 -potassium was 5.4 on admission today 4.8 -can resume mely/arb today CAD -12/2021- Medical management heart cath -continue aspirin, BB, statin Chronic diastolic heart failure- NYHA I-II Baseline - Echo 09/2021- Biatrial enlargement, EF 50, DD grade 1, trace mr and TR - Continue diuretics - can continue to hold aldactone for now will reassess in office. CV stable for dc home Have patient follow up in office in 1 week. DC home medications as follows: Aspirin 81mg QD Torsemide 40mg QD Renexa 500mg BID Lisinopril 5mg QD. Will need repeat labs in office in one week Objective Vital signs: Temp Pulse Resp BP Pulse Ox 97.9 F 76 18 135/85 94 L 02/18/22 08:00 02/18/22 08:00 02/18/22 08:00 02/18/22 08:00 02/18/22 08:00 no acute distress, obese - *Routine HEENT Exam Head: Present: normocephalic Eye: Present: PERRL ENT: Present: mucous membranes moist - *Routine Neck Exam Present: supple - *Routine Respiratory Exam Present: CTA bilaterally - *Routine Cardiovascular Exam Present: RRR - *Routine Abdominal Exam Present: soft, normoactive bowel sounds. Absent: tenderness - *Routine Extremities Exam Absent: cyanosis, clubbing, edema - *Routine Skin Exam Present: warm. Absent: rash - *Routine Neurological Exam Present: alert, oriented X3 Results - Additional Comments rounded with dr sr all orders per dr sr DS: Diagnosis - Discharge Diagnosis (1) Obesity Status: Acute (2) ANTONI (acute kidney injury) Status: Acute (3) Elevated left ventricular end-diastolic pressure (LVEDP) Status: Acute (4) CAD (coronary artery disease) Status: Chronic (5) Right bundle branch block Status: Acute Discharge Plan - Patient Discharge Instructions ACTIVITY: Continue current activity DIET: continue same diet Patient Instructions: Acute Kidney Injury, DI for Hyperkalemia - Follow up Plan Follow up with: Manuel Ayon MD [Staff Physician] - 1 week Betty Bella MD [Referring] - 1 week Emerson Ruiz MD [Staff Physician] - 1 week (for chronic knee pain ) Disposition: Home, Self-Care Condition at discharge:: Stable Home Medications: Home Medications Medication Instructions Recorded Confirmed Type aspirin 81 mg tablet,delayed 81 mg PO DAILY 08/28/21 02/15/22 History release tiotropium 2.5 mcg-olodaterol 2.5 2 puff IH DAILY 12/14/21 02/15/22 History mcg/actuation mist for inhalation torsemide 20 mg tablet 40 mg PO DAILY tab 12/14/21 02/15/22 History spironolactone 25 mg tablet 50 mg PO DAILY tab 02/08/22 02/15/22 History Ranolazine [Ranolazine ER] 500 mg PO BID 02/15/22 02/15/22 History lisinopriL [Lisinopril] 5 mg PO DAILY 02/15/22 02/15/22 History Prescriptions/Medication Reconciliation: Continued aspirin 81 mg tablet,delayed release 81 mg PO DAILY tiotropium 2.5 mcg-olodaterol 2.5 mcg/actuation mist for inhalation 2 puff IH DAILY torsemide 20 mg tablet 40 mg PO DAILY tab [place]
[2022-02-18 12:00] VITALS: BP 128/89; PULSE 70; PULSE 72; RESP 20; TEMP 36.5; O2SAT 96
--- NOTE | 2022-02-18 12:43 | PC.NURSE ---
Follow-up appointment needs to be made with patient's primary care provider before discharge. Primary care providers office closed until 1300 for lunch. Patient high risk for not making appointment for follow up, thus we will wait until office opens to schedule appointment.
--- NOTE | 2022-02-18 13:08 | HMH.PHAINT ---
DISCHARGE MEDICATION COUNSELING PROVIDED. DISCUSSED HOLDING THE SPIRONOLACTONE UNTIL THE PATIENT FOLLOWS UP WITH CARDIOLOGY ON 02/25/22. PATIENT ENDORSED NO QUESTIONS AT THIS TIME.
--- NOTE | 2022-02-19 15:43 | CARE MANAGER ---
Spoke with patient in post-discharge phone interview, patient had some issues with his appointments, asked if he would like some home health and he states yes' caseworker set up home health for medication management.
== END 2022-02-18 13:55 | disposition home or self-care (01) | DRG 683 ==
LOC: ER 15:53 → 2ND 16:07
PROVIDERS: Admitting Provider Emergency Medicine; Emergency Provider Emergency Medicine; PCP Nurse Practitioner Family; Visit Provider Emergency Medicine
DX: N17.9 Acute kidney failure, unspecified (principal); Z68.41 Body mass index [BMI] 40.0-44.9, adult; I50.32 Chronic diastolic (congestive) heart failure; I13.0 Hypertensive heart and chronic kidney disease with heart failure and stage 1 through stage 4 chronic kidney disease, or unspecified chronic kidney disease; E87.5 Hyperkalemia; Z87.891 Personal history of nicotine dependence; Z95.1 Presence of aortocoronary bypass graft; E66.9 Obesity, unspecified; I25.10 Atherosclerotic heart disease of native coronary artery without angina pectoris; N18.9 Chronic kidney disease, unspecified
CPT/HCPCS: 36415; 80048; 80053; 83880; 84484; 85025; 93005; 94762; 97162; 97166; 99285; C9803; G0378; U0003; U0005

== ENCOUNTER → 2022-03-08 12:13 | Outpatient (CLI) | payer MEDICARE, OTHER, SELFPAY ==
[2022-03-08 14:20] LABS: Anion Gap 13.6 mEq/L (5-15); Blood Urea Nitrogen 26 mg/dl (9-20); Carbon Dioxide 24 mmol/L (22.0-30.0); Chloride 100 mmol/L (98-107); Estimated Glomerular Filt Rate 60 ml/min (>60); GFR (African American) 72 ML/MIN (>60); Glucose 136 mg/dl (74-100); Potassium 4.6 mmoL/L (3.5-5.1); Sodium 133 mmol/L (136-145)
== END ==
PROVIDERS: Visit Provider Internal Medicine Cardiovascular Disease
DX: I25.10 Atherosclerotic heart disease of native coronary artery without angina pectoris
CPT/HCPCS: 36415; 80048

== ENCOUNTER → 2022-03-21 14:55 | Outpatient (CLI) | payer MEDICARE, OTHER, SELFPAY ==
[2022-03-21 15:42] LABS: Chloride 99 mmol/L (98-107)
[2022-03-21 15:43] LABS: Potassium 4.3 mmoL/L (3.5-5.1); Sodium 134 mmol/L (136-145)
[2022-03-21 15:46] LABS: Anion Gap 11.3 mEq/L (5-15); Blood Urea Nitrogen 31 mg/dl (9-20); Calcium 9.4 mg/dl (8.4-10.2); Carbon Dioxide 28 mmol/L (22.0-30.0); Estimated Glomerular Filt Rate 40 ml/min (>60); GFR (African American) 48 ML/MIN (>60); Glucose 131 mg/dl (74-100)
== END ==
PROVIDERS: PCP Nurse Practitioner Family; Visit Provider Nurse Practitioner
DX: E65 Localized adiposity (principal); I50.32 Chronic diastolic (congestive) heart failure; R06.00 Dyspnea, unspecified; R60.0 Localized edema; R94.31 Abnormal electrocardiogram [ECG] [EKG]
CPT/HCPCS: 36415; 80048

== ENCOUNTER → 2022-04-17 13:11 | Outpatient (CLI) | payer MEDICARE, OTHER, SELFPAY ==
[2022-04-17 14:40] LABS: Chloride 100 mmol/L (98-107); Potassium 4.8 mmoL/L (3.5-5.1); Sodium 134 mmol/L (136-145)
[2022-04-17 14:43] LABS: Anion Gap 13.8 mEq/L (5-15); Blood Urea Nitrogen 24 mg/dl (9-20); Calcium 10.2 mg/dl (8.4-10.2); Carbon Dioxide 25 mmol/L (22.0-30.0); Estimated Glomerular Filt Rate 50 ml/min (>60); GFR (African American) 60 ML/MIN (>60); Glucose 149 mg/dl (74-100)
== END ==
PROVIDERS: Nurse Practitioner; PCP Nurse Practitioner Family; Visit Provider Internal Medicine
DX: I25.10 Atherosclerotic heart disease of native coronary artery without angina pectoris (principal); I45.10 Unspecified right bundle-branch block; I50.9 Heart failure, unspecified; R91.1 Solitary pulmonary nodule; R94.31 Abnormal electrocardiogram [ECG] [EKG]
CPT/HCPCS: 36415; 80048

== ENCOUNTER 2022-04-30 17:19 | Emergency (ER) | payer MEDICARE, OTHER, SELFPAY ==
[2022-04-30] VITALS (8 sets, daily range): BP systolic 128–186; BP diastolic 81–103; PULSE 81–99; RESP 12–21; TEMP 37.1; O2SAT 94–99; BMI 33.9
--- NOTE | 2022-04-30 17:19 | ECG_ITS ---
APPROVED REPORT Exam: Resting ECG HR:99 bpm ECG Measurements Heart Rate 99 AXES MS 128 P 7 QRSd 162 QRS 81 QT 357 T 20 QTc 413 Conclusion SINUS RHYTHM INDETERMINATE AXIS RIGHT BUNDLE BRANCH BLOCK [120+ ms QRS DURATION, UPRIGHT V1, 40+ ms S IN I/aVL/V4/V5/V6] POSSIBLE ANTERIOR MYOCARDIAL INFARCTION , OF INDETERMINATE AGE [30 ms Q WAVE IN V3/V4, OR R < 0.2 mV IN V4] ABNORMAL ECG UNCONFIRMED REPORT Electronically signed by : Alexander Underwood MD 05/01/2022 17:36:35
--- NOTE | 2022-04-30 17:27 | XR_ITS ---
PROCEDURE INFORMATION: Exam: XR Chest Exam date and time: 04/30/2022 5:44 PM Age: 71 years old Clinical indication: Pain; Chest pressure; Additional info: Chest pain TECHNIQUE: Imaging protocol: Radiologic exam of the chest. Views: 1 view. Portable AP exam 5:46 p.m. COMPARISON: CT CHEST WO CON 12/19/2021 7:31 AM FINDINGS: Tubes, catheters and devices: Overlying deputy general counsel electrodes. Lungs: Hypoventilation/low lung volumes. Patchy subsegmental atelectasis in the lower lungs. Some persistent lobulated posteromedial basilar opacity which could be granulomatous change, infection or neoplasm, better seen on the prior CT. No new consolidation. Pulmonary vessels do not appear congested. Pleural spaces: Unremarkable. No significant pleural effusion. No pneumothorax. Heart/Mediastinum: Mildly enlarged cardiac silhouette, accentuated by shallow inspiration and portable AP technique. There is also a prominent pericardial fat pad seen on the CT of 12/19/2021, likely contributing to prominence of the cardiac silhouette on this exam. Tortuous or ectatic thoracic aorta. Bones/joints: There are spinal degenerative changes, with multilevel disc narrrowing and spondylosis. Bilateral acromioclavicular arthritis. IMPRESSION: 1. Bilateral infrahilar subsegmental atelectasis or scarring greater on the right. 2. Some hazy lobulated medial right basilar/retrocardiac opacities likely corresponding with lobulated density seen in this area on the previous CT of 12/19/2021, this could be chronic granulomatous change versus neoplasm or infection. 3. Enlarged cardiac silhouette versus artifact from prominent pericardial fat pad. Pulmonary vessels do not appear congested.
[2022-04-30 17:36] LABS: Coronavirus 19, PCR Not Detected (NotDetected); Influenza A, PCR Not Detected (NotDetected); Influenza B, PCR Not Detected (NotDetected)
[2022-04-30 17:37] LABS: Basophils # 0.1 K/mm3 (0-0.2); Basophils % 0.8 % (0.1-2.0); Eosinophils # 0.2 K/mm3 (0.0-0.4); Eosinophils % 1.5 % (0.1-12.0); Hemoglobin 15.9 g/dL (14.1-18.0); Lymphocytes % 13.7 % (10-50); Mean Corpuscular HGB Conc 31.2 g/dL (31.8-35.4); Mean Corpuscular Hemoglobin 31.4 pg (27.0-31.2); Mean Corpuscular Volume 100.3 fl (80-94); Mean Platelet Volume 8.3 fl (7.4-10.4); Monocytes # 0.9 K/mm3 (0.1-1.0); Monocytes % 6.4 % (1.7-9.3); Neutrophils # 11.2 K/mm3 (1.8-7.8); Neutrophils % 77.5 % (37.0-80.0); Platelet Count 388 K/mm3 (142-424); Red Blood Count 5.08 M/mm3 (4.60-6.20); Red Cell Distribution Width 13.4 % (11.5-17.5); White Blood Count 14.4 K/mm3 (4.8-10.8)
[2022-04-30 17:38] LABS: Chloride 94 mmol/L (98-107); Potassium 4.5 mmoL/L (3.5-5.1); Sodium 132 mmol/L (136-145)
[2022-04-30 17:41] LABS: Alanine Aminotransferase 37 U/L (12-78); Albumin Level 4.7 g/dl (3.5-5.0); Albumin/Globulin Ratio 1.4 (1.1-1.8); Alkaline Phosphatase 106 U/L (38-126); Anion Gap 17.5 mEq/L (5-15); Aspartate Amino Transferase 37 U/L (17-59); Bilirubin,Total 0.8 mg/dl (0.2-1.3); Blood Urea Nitrogen 27 mg/dl (9-20); Calcium 10.6 mg/dl (8.4-10.2); Carbon Dioxide 25 mmol/L (22.0-30.0); Creatinine Clearance Estimated 59 mL/min (50-200); Estimated Glomerular Filt Rate 37 ml/min (>60); GFR (African American) 45 ML/MIN (>60); Globulin 3.3 g/dL (1.3-3.2); Glucose 204 mg/dl (74-100)
[2022-04-30 17:44] LABS: Lipase 82 U/L (23-300)
[2022-04-30 18:16] LABS: Troponin I < 0.01 ng/ml (0.00-0.034)
--- NOTE | 2022-04-30 18:55 | ECG_ITS ---
APPROVED REPORT Exam: Resting ECG HR:84 bpm ECG Measurements Heart Rate 84 AXES SD 156 P 62 QRSd 157 QRS 11 QT 411 T 50 QTc 452 Conclusion SINUS RHYTHM INDETERMINATE AXIS RIGHT BUNDLE BRANCH BLOCK [120+ ms QRS DURATION, UPRIGHT V1, 40+ ms S IN I/aVL/V4/V5/V6] ABNORMAL ECG UNCONFIRMED REPORT Electronically signed by : Alexander Underwood MD 05/01/2022 07:56:34
--- NOTE | 2022-04-30 18:57 | HMH.EDGENADL ---
ED Disposition Condition on Discharge: Good - Critical Care Critical Care Time: No <Brandan Fry - Last Filed: 04/30/22 20:23> <Luis Enrique Subramanian - Last Filed: 04/30/22 22:27> Clinical Impression: Rectal bleeding Chest pain Qualifiers: Chest pain type: unspecified Qualified Code(s): R07.9 - Chest pain, unspecified Disposition: Home, Self-Care Instructions: DI for Atypical Chest Pain Additional Instructions: At this time it was felt you are safe to be discharged from the emergency department. If new or worsening symptoms please do not hesitate to return for continued valuation. Please follow-up with your primary care doctor for continued evaluation of your chest pain. Please call and schedule follow-up for the need for colonoscopy with surgery. Referrals: Betty Bella MD [Primary Care Provider] - Good Timmons MD [Staff Physician] - Attestation: On 04/30/22, the high probability of a clinically significant, sudden or life threatening deterioration of the following system(s) required my full and direct attention, intervention and personal management. The time I documented below is in addition to time spent performing reported procedures but includes the following listed in this critical care notation. Medical Decision Making - Filipe Inquiry Pt receiving controlled substance: No - Lab Data Result diagrams: 04/30/22 17:25 04/30/22 17:25 - ANDRE Score for Non-Stemi Age of Patient: 70-79 years old Heart Rate: 90-109 bpm Systolic Blood Pressure: 160-199 mmHg Serum Creatinine: 1.60-1.99 mg/dl CHF Killip Class: I-No CHF Other Risk Factors: None Non-Stemi Risk Score: 113 <Brandan Fry - Last Filed: 04/30/22 20:23> - Lab Data Lab results reviewed: Yes: I reviewed the patient's lab results. Result diagrams: 04/30/22 17:25 04/30/22 17:25 - CT Data CT Scan: Chest Time Received: 22:[address] Reviewed: Yes: I have viewed the radiologist's interpretation Preliminary Findings: Abnormal (see chart ) <Luis Enrique Subramanian - Last Filed: 04/30/22 22:27> Vital Signs: 04/30/22 17:21 04/30/22 17:30 04/30/22 17:34 Temperature 98.8 F Temperature Source Oral Pulse Rate 97 H 94 H Pulse Rate [Radial] 99 H Respiratory Rate 16 17 Blood Pressure 128/93 H 128/93 H Blood Pressure [Right Arm] 161/98 H Blood Pressure Mean 103 Blood Pressure Mean [Right Arm] 119 Blood Pressure Source Automatic Cuff Blood Pressure Position Sitting Blood Pressure Position [Right Arm] Sitting 02 Sat by Pulse Oximetry 98 99 96 Oxygen Delivery Method Room Air Room Air Room Air 04/30/22 19:00 04/30/22 20:00 04/30/22 20:31 Temperature Temperature Source Pulse Rate 81 89 87 Pulse Rate [Radial] Respiratory Rate 12 13 21 Blood Pressure 149/81 H 151/98 H 186/97 H Blood Pressure [Right Arm] Blood Pressure Mean Blood Pressure Mean [Right Arm] Blood Pressure Source Blood Pressure Position Blood Pressure Position [Right Arm] 02 Sat by Pulse Oximetry 94 L 95 96 Oxygen Delivery Method Room Air Room Air Room Air 04/30/22 21:01 Temperature Temperature Source Pulse Rate 86 Pulse Rate [Radial] Respiratory Rate 12 Blood Pressure 144/103 H Blood Pressure [Right Arm] Blood Pressure Mean Blood Pressure Mean [Right Arm] Blood Pressure Source Blood Pressure Position Blood Pressure Position [Right Arm] 02 Sat by Pulse Oximetry 94 L Oxygen Delivery Method Room Air - Lab Data Lab Results 04/30/22 17:25: WBC 14.4 H, RBC 5.08, Hgb 15.9, Hct 51.0, MCV 100.3 H, MCH 31.4 H, MCHC 31.2 L, RDW 13.4, Plt Count 388, MPV 8.3, Neut % (Auto) 77.5, Lymph % (Auto) 13.7, Vernon % (Auto) 6.4, Eos % (Auto) 1.5, Baso % (Auto) 0.8, Neut # (Auto) 11.2 H, Lymph # (Auto) 2.0, Vernon # (Auto) 0.9, Eos # (Auto) 0.2, Baso # (Auto) 0.1 04/30/22 17:25: Sodium 132 L, Potassium 4.5, Chloride 94 L, Carbon Dioxide 25, Anion Gap 17.5 H, BUN 27 H, Creatinine 1.80 H, Estimated Creat Clear 59, Estimated GFR 3
--- NOTE | 2022-04-30 18:58 | CT_ITS ---
PROCEDURE INFORMATION: Exam: CT Chest Without Contrast; Diagnostic Exam date and time: 04/30/2022 7:42 PM Age: 71 years old Clinical indication: Shortness of breath; Additional info: Prior lung lesion, SOA, cough TECHNIQUE: Imaging protocol: Diagnostic computed tomography of the chest without contrast. Radiation optimization: All CT scans at this facility use at least one of these dose optimization techniques: automated exposure control; mA and/or kV adjustment per patient size (includes targeted exams where dose is matched to clinical indication); or iterative reconstruction. COMPARISON: CT CHEST WO CON 12/19/2021 7:31 AM FINDINGS: Lungs: There are chronic patchy areas of interstitial scarring, subsegmental atelectasis, and ground-glass opacity in both lungs, greatest in the lower lobes. There is a chronic ovoid lobulated solid pulmonary nodule at the posterior right lung base of approximately 2.4 cm transverse diameter, and 11 mm thickness, unchanged compared with 12/19/2021 by my measurement, containing some punctate calcifications, likely chronic partially calcified granuloma. There are other tiny scattered calcified granulomas in both lungs. There is no focal consolidation. Pleural spaces: Areas of mild fatty pleural thickening, bilaterally. No pleural effusion. No pneumothorax. Heart: The heart is not enlarged. A large pericardial fat pad/mediastinal lipomatosis noted. No pericardial effusion. No significant coronary artery calcifications visualized. Lymph nodes: Multiple small calcified right hilar lymph nodes.No significantly enlarged lymph nodes by short axis criteria. Vasculature: There is no aortic aneurysm. Multiple calcified atherosclerotic plaques. Diaphragm: A very small hiatal hernia. Liver: Mild hepatomegaly. Fatty liver. Pancreas: Prominent fatty infiltrative changes noted in the pancreas. Bones/joints: Some chronic bilateral rib deformities likely old healed trauma. No acute appearing fracture. Ankylosing thoracic spondyloarthropathy, bridging syndesmophytes or ligamentous calcifications with chronic thoracic kyphosis. No acute appearing fracture or high-grade listhesis, as visualized. Soft tissues: There is a focal fatty mass located anterior to the lower body of sternum which appears to communicate with the upper abdomen, suggesting a fatty ventral abdominal hernia protruding upward into the chest. This measures approximately 7.5 cm length, 5.6 cm AP thickness, and 7.2 cm transverse diameter on sagittal series 1002, image 70, and coronal series 1001, image 14. This has a very narrow neck of approximately 1.4 x 0.8 cm diameter on sagittal image 70 and coronal image 15. No herniated bowel loops. Minimal soft tissue stranding within this. IMPRESSION: 1. Posterior right basilar solid pulmonary nodule is unchanged by my measurement compared with 12/19/2021, approximately 2.4 cm. This contains punctate calcification and could be a partially calcified granuloma, versus indolent neoplasm. Recommend follow-up CT in 1 year for continued surveillance. 2. A 7.5 cm fatty ventral abdominal wall hernia in the midline epigastrium, protruding upward anterior to the lower sternum; this has a very narrow neck of 1.4 x 0.8 cm, but there is no herniated bowel. Correlate for symptomatic hernia. 3. Chronic patchy bilateral pulmonary interstitial scarring, subsegmental atelectasis, and ground-glass disease not significantly changed in the interval. No focal consolidation. 4. Additional nonemergency and chronic findings as above.
[2022-04-30 21:06] LABS: Procalcitonin 0.098 ng/mL (0.0-2.0)
--- NOTE | 2022-04-30 21:09 | PC.NURSE ---
LAB at to obtain blood for lab work
[2022-04-30 21:56] LABS: Troponin I < 0.01 ng/ml (0.00-0.034)
== END 2022-04-30 22:41 | disposition home or self-care (01) ==
PROVIDERS: Emergency Provider Emergency Medicine; PCP Family Medicine
DX: R07.9 Chest pain, unspecified (principal); R94.39 Abnormal result of other cardiovascular function study; R06.02 Shortness of breath; R42 Dizziness and giddiness; R10.11 Right upper quadrant pain; R11.2 Nausea with vomiting, unspecified; R51.9 Headache, unspecified; I11.0 Hypertensive heart disease with heart failure; I50.9 Heart failure, unspecified; I25.10 Atherosclerotic heart disease of native coronary artery without angina pectoris; M19.90 Unspecified osteoarthritis, unspecified site; R91.1 Solitary pulmonary nodule; K59.00 Constipation, unspecified; J44.9 Chronic obstructive pulmonary disease, unspecified; Z79.51 Long term (current) use of inhaled steroids; Z79.82 Long term (current) use of aspirin; Z79.899 Other long term (current) drug therapy; Z95.1 Presence of aortocoronary bypass graft; Z20.822 Contact with and (suspected) exposure to COVID-19
CPT/HCPCS: 71045; 71250; 80053; 83690; 84145; 84484; 85025; 93005; 96374; 96375; 96376; 99285; C9803; J2405; U0003; U0005

== ENCOUNTER → 2022-05-13 10:31 | Outpatient (CLI) | payer MEDICARE, OTHER, SELFPAY ==
--- NOTE | 2022-05-13 10:34 | CT_ITS ---
FINAL REPORT TECHNIQUE: Axial images were obtained from the lung apex to the mid abdomen by computed tomography. Coronal reformatted images were obtained. This study was performed with techniques to keep radiation doses as low as reasonably achievable, (ALARA). Individualized dose reduction techniques using automated exposure control or adjustment of mA and/or kV according to the patient''s size were employed. CLINICAL HISTORY: RLL Nodule F/U. C/o SOA, CP x 3 mos COMPARISON: 04/30/2022 FINDINGS: There is no axillary adenopathy. There is no hilar or mediastinal adenopathy. Again seen is a midline upper abdominal hernia extending superiorly and containing fat. The hernia sac measures 2.3 cm in transverse dimensions and is stable. Heart size is normal. There is no pericardial or pleural effusion. Limited images of the upper abdomen are unremarkable. There is mild bibasilar scarring. There is a 2.1 cm lobular soft tissue nodule in the right costophrenic angle with partial calcification that is stable as compared to recent CT. There are 2 calcified granulomas superior to this nodule. No new mass or nodule is seen. IMPRESSION: Stable 2.1 cm soft tissue nodule. Reviewed, Interpreted and Dictated by Good Hand III, MD Transcribed by Luis Jacobson Authenticated and [facility]
== END ==
PROVIDERS: PCP Family Medicine; Visit Provider Internal Medicine Pulmonary Disease
DX: R91.8 Other nonspecific abnormal finding of lung field (principal)
CPT/HCPCS: 71250

== ENCOUNTER 2022-05-21 10:46 | Emergency (ER) | payer MEDICARE, OTHER, SELFPAY ==
[2022-05-21 10:47] VITALS: BP 132/86; PULSE 72; RESP 14; TEMP 36.7; O2SAT 98; BMI 37.9
--- NOTE | 2022-05-21 11:17 | XR_ITS ---
FINAL REPORT CLINICAL HISTORY: sob FINDINGS: Two views of the chest were obtained. There is cardiomegaly. The mediastinum is normal. There are worsening bibasilar opacities which may represent atelectasis or pneumonia. There is no pneumothorax. The bony thorax is intact. IMPRESSION: Worsening bibasilar atelectasis or pneumonia. Reviewed, Interpreted and Dictated by Good Hand III, MD Transcribed by Jyoti Mathews Authenticated and [facility]
--- NOTE | 2022-05-21 11:43 | EXP.UTC ---
Discharge Plan Disposition Patient Disposition: Home, Self-Care Condition: Fair Prescriptions Prescriptions: New amoxicillin-pot clavulanate 875-125 mg tablet 1 tab PO BID 7 Days Qty: 14 0RF doxycycline hyclate 100 mg capsule 100 mg PO BID 14 Days Qty: 28 0RF No Action loratadine 10 mg tablet 10 mg PO DAILY ranolazine [Ranexa] 1,000 mg tablet extended release 12 hr 1,000 mg PO BID Qty: 60 5RF peg 3350-electrolytes [Golytely] 236-22.74-6.74 -5.86 gram recon soln 240 ml PO Q10M Qty: 4000 0RF Rx Instructions: until fecal effluent is clear albuterol sulfate [ProAir HFA] 90 mcg/actuation HFA aerosol inhaler 2 puff inhalation QID PRN (Reason: shortness of breath or wheezing) 90 Days Qty: 8.5 3RF Stiolto Respimat 2.5-2.5 mcg/actuation mist 2 puff inhalation DAILY 90 Days Qty: 4 3RF aspirin 81 mg tablet,delayed release (DR/EC) 81 mg PO DAILY Qty: 30 5RF torsemide 100 mg tablet 100 mg PO DAILY Qty: 30 5RF spironolactone [Aldactone] 25 mg tablet 25 mg PO DAILY Qty: 30 2RF lisinopril 5 mg tablet 2.5 mg PO DAILY Qty: 30 5RF Referrals Follow up/Referrals: Betty Bella MD [Primary Care Provider] - See instructions Activity Restrictions/Add. Instructions Additional Instructions/Restrictions: Please follow-up with your PCP in the next couple of days to ensure that your symptoms are improving. Do not hesitate to return to the ED with any new or worsening symptoms. Clinical Impressions Clinical Impression: Pneumonia Instructions Patient Instructions: Pneumonia-Adult, DI for Pneumonia -- Adult Discharge ED Provider: Juarez Strickland [facility] General Chief complaint: Shortness of Breath/Dyspnea Stated complaint: sob, cough Time Seen by Provider: 05/21/22 11:44 History of Present Illness Provider Complaint: He has had a cough and chest congestion for the past 2 weeks. HE has been treated for pneumonia by his pcp and states that he hasn't got any better Related Data Home Medications Medication Instructions Recorded Confirmed loratadine 10 mg tablet 10 mg PO DAILY 02/25/22 05/21/22 Previous Rx's Medication Instructions Recorded aspirin 81 mg tablet,delayed 81 mg PO DAILY HEART HEALTH #30 03/21/22 release tabs spironolactone 25 mg tablet 25 mg PO DAILY #30 tabs 04/09/22 (Aldactone) torsemide 100 mg tablet 100 mg PO DAILY #30 tabs 04/22/22 lisinopril 5 mg tablet 2.5 mg PO DAILY htn #30 tabs 04/24/22 albuterol sulfate 90 mcg/actuation 2 puff inhalation QID PRN 05/13/22 aerosol inhaler (ProAir HFA) shortness of breath or wheezing 90 days #8.5 grams ranolazine 1,000 mg 1,000 mg PO BID #60 tabs 05/13/22 tablet,extended release,12 hr (Ranexa) tiotropium 2.5 mcg-olodaterol 2.5 2 puff inhalation DAILY 90 days #4 05/13/22 mcg/actuation mist for inhalation grams (Stiolto Respimat) amoxicillin 875 mg-potassium 1 tab PO BID 7 days #14 tabs 05/21/22 clavulanate 125 mg tablet doxycycline hyclate 100 mg capsule 100 mg PO BID 14 days #28 caps 05/21/22 peg 3350-electrolytes 236 240 ml PO Q10M #4,000 mL 05/21/22 gram-22.74 gram-6.74 gram-5.86 gram solution (Golytely) Allergies Allergy/AdvReac Type Severity Reaction Status Date / Time No Known Drug Allergies Allergy Unknown Verified 05/21/22 12:07 [facility] Medical History Abnormal cardiovascular stress test Atypical angina Chest pain COPD suggested by initial evaluation Coronary artery calcification seen on CT scan Dyspnea Dyspnea on exertion History of smoking 30 or more pack years Preop cardiovascular exam Pulmonary nodule Right bundle branch block Surgical History History of right knee surgery Social History Smoking Status: Never smoker alcohol intake: current current occupational status: retired Travel in
[2022-05-21 12:03] VITALS: BP 129/84; PULSE 78; RESP 16; TEMP 36.6; O2SAT 98; BMI 38.0
--- NOTE | 2022-05-21 12:43 | ECG_ITS ---
APPROVED REPORT Exam: Resting ECG HR:69 bpm ECG Measurements Heart Rate 69 AXES NE 170 P 44 QRSd 160 QRS 0 QT 434 T 37 QTc 453 Conclusion SINUS RHYTHM INDETERMINATE AXIS RIGHT BUNDLE BRANCH BLOCK [120+ ms QRS DURATION, UPRIGHT V1, 40+ ms S IN I/aVL/V4/V5/V6] ABNORMAL ECG UNCONFIRMED REPORT Electronically signed by : Alexander Underwood MD 05/21/2022 21:06:47
[2022-05-21 12:58] LABS: Basophils # 0.1 K/mm3 (0-0.2); Basophils % 0.8 % (0.1-2.0); Eosinophils # 0.2 K/mm3 (0.0-0.4); Eosinophils % 2.3 % (0.1-12.0); Hematocrit 46.4 % (42.0-52.0); Hemoglobin 14.7 g/dL (14.1-18.0); Lymphocytes % 23.3 % (10-50); Mean Corpuscular HGB Conc 31.6 g/dL (31.8-35.4); Mean Corpuscular Hemoglobin 31.8 pg (27.0-31.2); Mean Corpuscular Volume 100.6 fl (80-94); Mean Platelet Volume 7.6 fl (7.4-10.4); Monocytes # 0.6 K/mm3 (0.1-1.0); Monocytes % 6.6 % (1.7-9.3); Neutrophils # 5.6 K/mm3 (1.8-7.8); Neutrophils % 66.9 % (37.0-80.0); Platelet Count 363 K/mm3 (142-424); Red Blood Count 4.61 M/mm3 (4.60-6.20); White Blood Count 8.3 K/mm3 (4.8-10.8)
[2022-05-21 13:05] LABS: Alanine Aminotransferase 32 U/L (12-78); Albumin Level 4.2 g/dl (3.5-5.0); Albumin/Globulin Ratio 1.3 (1.1-1.8); Alkaline Phosphatase 106 U/L (38-126); Anion Gap 13.5 mEq/L (5-15); Aspartate Amino Transferase 36 U/L (17-59); Bilirubin,Total 0.4 mg/dl (0.2-1.3); Blood Urea Nitrogen 20 mg/dl (9-20); Calcium 9.5 mg/dl (8.4-10.2); Carbon Dioxide 29 mmol/L (22.0-30.0); Chloride 98 mmol/L (98-107); Creatinine Clearance Estimated 92 mL/min (50-200); Estimated Glomerular Filt Rate 54 ml/min (>60); GFR (African American) 66 ML/MIN (>60); Globulin 3.3 g/dL (1.3-3.2); Glucose 157 mg/dl (74-100); Potassium 4.5 mmoL/L (3.5-5.1); Sodium 136 mmol/L (136-145); Total Protein,Serum 7.5 g/dl (6.3-8.2)
[2022-05-21 13:06] LABS: Coronavirus 19, PCR Not Detected (NotDetected); Influenza A, PCR Not Detected (NotDetected); Influenza B, PCR Not Detected (NotDetected)
[2022-05-21 13:10] LABS: C-Reactive Protein 12.2 mg/L (0-4)
--- NOTE | 2022-05-21 13:20 | HMH.EDGENADL ---
Discharge Plan Disposition Patient Disposition: Home, Self-Care Condition: Fair Prescriptions Prescriptions: New amoxicillin-pot clavulanate 875-125 mg tablet 1 tab PO BID 7 Days Qty: 14 0RF doxycycline hyclate 100 mg capsule 100 mg PO BID 14 Days Qty: 28 0RF No Action loratadine 10 mg tablet 10 mg PO DAILY ranolazine [Ranexa] 1,000 mg tablet extended release 12 hr 1,000 mg PO BID Qty: 60 5RF peg 3350-electrolytes [Golytely] 236-22.74-6.74 -5.86 gram recon soln 240 ml PO Q10M Qty: 4000 0RF Rx Instructions: until fecal effluent is clear albuterol sulfate [ProAir HFA] 90 mcg/actuation HFA aerosol inhaler 2 puff inhalation QID PRN (Reason: shortness of breath or wheezing) 90 Days Qty: 8.5 3RF Stiolto Respimat 2.5-2.5 mcg/actuation mist 2 puff inhalation DAILY 90 Days Qty: 4 3RF aspirin 81 mg tablet,delayed release (DR/EC) 81 mg PO DAILY Qty: 30 5RF torsemide 100 mg tablet 100 mg PO DAILY Qty: 30 5RF spironolactone [Aldactone] 25 mg tablet 25 mg PO DAILY Qty: 30 2RF lisinopril 5 mg tablet 2.5 mg PO DAILY Qty: 30 5RF Referrals Follow up/Referrals: Betty Bella MD [Primary Care Provider] - See instructions Activity Restrictions/Add. Instructions Additional Instructions/Restrictions: Please follow-up with your PCP in the next couple of days to ensure that your symptoms are improving. Do not hesitate to return to the ED with any new or worsening symptoms. Clinical Impressions Clinical Impression: Pneumonia Instructions Patient Instructions: Pneumonia-Adult, DI for Pneumonia -- Adult Discharge ED Provider: Juarez Strickland General Adult HPI General Chief complaint: Shortness of Breath/Dyspnea Stated complaint: sob, cough Time Seen by Provider: 05/21/22 11:44 Mode of Arrival: Wheelchair Source of Information: Patient Limitations: No Limitations Description of Symptoms (Recalled from ER Triage Doc. by RN): pt comes in with c/o productive cough, shortness of air, wheezing, runny nose. symptoms began friday History of Present Illness HPI narrative: This is a 71-year-old male past medical history of COPD, CAD who presents with concern for shortness of breath. He states that he has not had any fever or chills but he says over the last couple days has gotten more progressively short of breath. He says that his PCP diagnosed him with pneumonia but did not place him on any antibiotics. He says that he has been coughing up green sputum. He does wear oxygen at night but has not had to wear it during the day. He denies any chest pain. Denies any weakness. Related Data Home Medications Medication Instructions Recorded Confirmed loratadine 10 mg tablet 10 mg PO DAILY 02/25/22 05/21/22 Previous Rx's Medication Instructions Recorded aspirin 81 mg tablet,delayed 81 mg PO DAILY [facility] #30 03/21/22 release tabs spironolactone 25 mg tablet 25 mg PO DAILY #30 tabs 04/09/22 (Aldactone) torsemide 100 mg tablet 100 mg PO DAILY #30 tabs 04/22/22 lisinopril 5 mg tablet 2.5 mg PO DAILY htn #30 tabs 04/24/22 albuterol sulfate 90 mcg/actuation 2 puff inhalation QID PRN 05/13/22 aerosol inhaler (ProAir HFA) shortness of breath or wheezing 90 days #8.5 grams ranolazine 1,000 mg 1,000 mg PO BID #60 tabs 05/13/22 tablet,extended release,12 hr (Ranexa) tiotropium 2.5 mcg-olodaterol 2.5 2 puff inhalation DAILY 90 days #4 05/13/22 mcg/actuation mist for inhalation grams (Stiolto Respimat) amoxicillin 875 mg-potassium 1 tab PO BID 7 days #14 tabs 05/21/22 clavulanate 125 mg tablet doxycycline hyclate 100 mg capsule 100 mg PO BID 14 days #28 caps 05/21/22 peg 3350-electrolytes 236 240 ml PO Q10M #4,000 mL 05/21/22 gram-22.74 gram-6.74 gram-5.86 gram solution (Golytely) Allergies Allergy/AdvReac Type Severity Reaction Status Date / Time No Known Drug Allergies Allergy Unknown Verified 05/21/22 12:07 [facility] Medical History
[2022-05-21 13:54] VITALS: BP 136/96; PULSE 73; RESP 13; TEMP 36.6; O2SAT 97
== END 2022-05-21 13:57 | disposition home or self-care (01) ==
LOC: UTC 11:16 → ER 12:31
PROVIDERS: Emergency Provider Student in an Organized Health Care Education/Training Program; PCP Family Medicine
DX: J44.9 Chronic obstructive pulmonary disease, unspecified (principal); R94.31 Abnormal electrocardiogram [ECG] [EKG]; R07.9 Chest pain, unspecified; R91.1 Solitary pulmonary nodule; N17.9 Acute kidney failure, unspecified; Z20.822 Contact with and (suspected) exposure to COVID-19; I25.119 Atherosclerotic heart disease of native coronary artery with unspecified angina pectoris; I45.10 Unspecified right bundle-branch block; Z99.81 Dependence on supplemental oxygen; Z79.51 Long term (current) use of inhaled steroids; Z79.82 Long term (current) use of aspirin; Z79.899 Other long term (current) drug therapy; Z87.891 Personal history of nicotine dependence
CPT/HCPCS: 71046; 80053; 85025; 86140; 93005; 99284; C9803; U0003; U0005

== ENCOUNTER 2022-06-10 10:09 | Emergency (ER) | payer MEDICARE, OTHER, SELFPAY ==
[2022-06-10] VITALS (8 sets, daily range): BP systolic 117–134; BP diastolic 73–102; PULSE 83–105; RESP 18; TEMP 36.6; O2SAT 95–100; BMI 38.0
--- NOTE | 2022-06-10 10:14 | HMH.EDGENADL ---
Discharge Plan Disposition Patient Disposition: Home, Self-Care Condition: Good Chief Complaint: Urogenital-Male Prescriptions Prescriptions: No Action loratadine 10 mg tablet 10 mg PO DAILY ranolazine [Ranexa] 1,000 mg tablet extended release 12 hr 1,000 mg PO BID Qty: 60 5RF peg 3350-electrolytes [Golytely] 236-22.74-6.74 -5.86 gram recon soln 240 ml PO Q10M Qty: 4000 0RF Rx Instructions: until fecal effluent is clear albuterol sulfate [ProAir HFA] 90 mcg/actuation HFA aerosol inhaler 2 puff inhalation QID PRN (Reason: shortness of breath or wheezing) 90 Days Qty: 8.5 3RF Stiolto Respimat 2.5-2.5 mcg/actuation mist 2 puff inhalation DAILY 90 Days Qty: 4 3RF aspirin 81 mg tablet,delayed release (DR/EC) 81 mg PO DAILY Qty: 30 5RF torsemide 100 mg tablet 100 mg PO DAILY Qty: 30 5RF spironolactone [Aldactone] 25 mg tablet 25 mg PO DAILY Qty: 30 2RF lisinopril 5 mg tablet 2.5 mg PO DAILY Qty: 30 5RF amoxicillin-pot clavulanate 875-125 mg tablet 1 tab PO BID 7 Days Qty: 14 0RF doxycycline hyclate 100 mg capsule 100 mg PO BID 14 Days Qty: 28 0RF Referrals Follow up/Referrals: Stephy Contreras APRN [Primary Care Provider] - See instructions Lauro Montoya MD [Staff Physician] - See instructions Clinical Impressions Clinical Impression: Hematuria Instructions Patient Instructions: DI for Urinary Tract Infection (UTI), DI for Urinary Tract Infection in Children Discharge ED Provider: Albino Byrd General Adult HPI General Chief complaint: Urogenital-Male Stated complaint: dizzy, blood in urine Time Seen by Provider: 06/10/22 10:14 Mode of Arrival: Ambulatory History of Present Illness HPI narrative: 71 yo/M with hx of COPD, ANTONI, hyperkalemia, rectal bleeding, CAD on ASA. He presents today with hematuria that has been going on for about 2 weeks, he states it's actually improved, is not having clots or urinary retention, denies fever, chills, N/V, does report intermittent dysuria. He has never seen a urologist and has not had any treatment for this issue thus far. Related Data Home Medications Medication Instructions Recorded Confirmed loratadine 10 mg tablet 10 mg PO DAILY 02/25/22 05/21/22 Previous Rx's Medication Instructions Recorded aspirin 81 mg tablet,delayed 81 mg PO DAILY [facility] #30 03/21/22 release tabs spironolactone 25 mg tablet 25 mg PO DAILY #30 tabs 04/09/22 (Aldactone) torsemide 100 mg tablet 100 mg PO DAILY #30 tabs 04/22/22 lisinopril 5 mg tablet 2.5 mg PO DAILY htn #30 tabs 04/24/22 albuterol sulfate 90 mcg/actuation 2 puff inhalation QID PRN 05/13/22 aerosol inhaler (ProAir HFA) shortness of breath or wheezing 90 days #8.5 grams ranolazine 1,000 mg 1,000 mg PO BID #60 tabs 05/13/22 tablet,extended release,12 hr (Ranexa) tiotropium 2.5 mcg-olodaterol 2.5 2 puff inhalation DAILY 90 days #4 05/13/22 mcg/actuation mist for inhalation grams (Stiolto Respimat) amoxicillin 875 mg-potassium 1 tab PO BID 7 days #14 tabs 05/21/22 clavulanate 125 mg tablet doxycycline hyclate 100 mg capsule 100 mg PO BID 14 days #28 caps 05/21/22 peg 3350-electrolytes 236 240 ml PO Q10M #4,000 mL 05/21/22 gram-22.74 gram-6.74 gram-5.86 gram solution (Golytely) Allergies Allergy/AdvReac Type Severity Reaction Status Date / Time No Known Drug Allergies Allergy Unknown Verified 05/21/22 12:07 [facility] Medical History Abnormal cardiovascular stress test Atypical angina Chest pain COPD suggested by initial evaluation Coronary artery calcification seen on CT scan Dyspnea Dyspnea on exertion History of smoking 30 or more pack years Preop cardiovascular exam Pulmonary nodule Right bundle branch block Surgical History History of right knee surgery Social History (Updated 06/10/22 @ 10:33 by Myranda
--- NOTE | 2022-06-10 10:27 | PC.NURSE ---
ED MD AT BEDSIDE FOR EVALUATION
[2022-06-10 10:33] LABS: Basophils # 0.1 K/mm3 (0-0.2); Basophils % 1.8 % (0.1-2.0); Eosinophils # 0.1 K/mm3 (0.0-0.4); Eosinophils % 1.6 % (0.1-12.0); Hematocrit 47.9 % (42.0-52.0); Hemoglobin 15.6 g/dL (14.1-18.0); Lymphocytes # 2.4 K/mm3 (0.7-4.5); Lymphocytes % 29.2 % (10-50); Mean Corpuscular HGB Conc 32.6 g/dL (31.8-35.4); Mean Corpuscular Hemoglobin 32.6 pg (27.0-31.2); Mean Corpuscular Volume 100.3 fl (80-94); Mean Platelet Volume 7.8 fl (7.4-10.4); Monocytes # 0.6 K/mm3 (0.1-1.0); Monocytes % 6.7 % (1.7-9.3); Neutrophils % 60.7 % (37.0-80.0); Platelet Count 282 K/mm3 (142-424); Red Blood Count 4.77 M/mm3 (4.60-6.20); Red Cell Distribution Width 13.7 % (11.5-17.5); White Blood Count 8.3 K/mm3 (4.8-10.8)
[2022-06-10 10:35] LABS: Chloride 92 mmol/L (98-107)
[2022-06-10 10:36] LABS: Potassium 4.3 mmoL/L (3.5-5.1); Sodium 138 mmol/L (136-145)
[2022-06-10 10:38] LABS: Alanine Aminotransferase 40 U/L (12-78); Anion Gap 18.3 mEq/L (5-15); Aspartate Amino Transferase 41 U/L (17-59); Blood Urea Nitrogen 19 mg/dl (9-20); Carbon Dioxide 32 mmol/L (22.0-30.0); Creatinine Clearance Estimated 92 mL/min (50-200); Estimated Glomerular Filt Rate 54 ml/min (>60); GFR (African American) 66 ML/MIN (>60)
[2022-06-10 10:39] LABS: Albumin Level 4.3 g/dl (3.5-5.0); Albumin/Globulin Ratio 1.5 (1.1-1.8); Alkaline Phosphatase 107 U/L (38-126); Bilirubin,Total 0.8 mg/dl (0.2-1.3); Calcium 8.9 mg/dl (8.4-10.2); Globulin 2.9 g/dL (1.3-3.2); Glucose 199 mg/dl (74-100); Total Protein,Serum 7.2 g/dl (6.3-8.2)
--- NOTE | 2022-06-10 10:56 | PC.NURSE ---
PT PROVIDED URINAL
--- NOTE | 2022-06-10 11:35 | PC.NURSE ---
Pt still attempting to provide a urine sample. Pt drank a bottle of water.
--- NOTE | 2022-06-10 11:48 | PC.NURSE ---
PT UNABLE TO PROVIDE CLEAN CATCH URINE SPECIMEN, AGREES TO CATH URINE. COLLECTED AT THIS TIME. PT TOLERATED WELL
[2022-06-10 11:51] LABS: Appearance,Urine CLEAR (Clear); Bilirubin,Urine Negative (Negative); Blood, Urine Negative (Negative); Color,Urine YELLOW (Yellow); Glucose,Urine (UA) Negative (Negative); Ketones,Urine Negative (Negative); Leukocyte Esterase,Urine Negative (Negative); Microscopic, Urine URINE MICROSCOPIC (MICROSCOPIC); Nitrate,Urine Negative (Negative); Protein,Urine TRACE (Negative); Specific Gravity, Urine >= 1.030 (1.005-1.030); Urobilinogen,Urine 0.2 EU/dl (0.2)
--- NOTE | 2022-06-10 11:53 | PC.NURSE ---
contacted urology office to make follow up appt for pt. Spoke with Collette who states since pt would be a new pt and Dr. Montoya's last day is friday of this week it would probably be better if he(ER doctor) referred him (the patient) to someone else . Notified ER MD of the above.
[2022-06-10 12:04] LABS: Bacteria,Urine Trace /lpf; Hyaline Casts,Urine Occasional #/lpf (0); Mucus,Urine 1+ /lpf; Squamous Epithelial Cell,Urine Occasional #/hpf (0-5); WBC,Urine Occasional #/hpf (0-3)
--- NOTE | 2022-06-10 12:18 | PC.NURSE ---
AT GOING OVER RESULTS
--- NOTE | 2022-06-10 12:45 | PC.NURSE ---
PT BEING DISCHARGED
== END 2022-06-10 12:50 | disposition home or self-care (01) ==
PROVIDERS: Emergency Provider Emergency Medicine; PCP Nurse Practitioner Family
DX: R31.9 Hematuria, unspecified (principal); R42 Dizziness and giddiness; R07.9 Chest pain, unspecified; R94.31 Abnormal electrocardiogram [ECG] [EKG]; R06.02 Shortness of breath; N17.9 Acute kidney failure, unspecified; I25.119 Atherosclerotic heart disease of native coronary artery with unspecified angina pectoris; I45.10 Unspecified right bundle-branch block; E87.5 Hyperkalemia; R91.1 Solitary pulmonary nodule; J44.9 Chronic obstructive pulmonary disease, unspecified; Z79.51 Long term (current) use of inhaled steroids; Z79.82 Long term (current) use of aspirin; Z79.899 Other long term (current) drug therapy; Z87.891 Personal history of nicotine dependence
CPT/HCPCS: 80053; 81001; 85025; 99283

== ENCOUNTER 2022-07-12 10:06 | Day surgery (SDC) | payer MEDICARE, OTHER, SELFPAY ==
[2022-07-12 11:01] VITALS: BP 166/88; PULSE 91; RESP 20; TEMP 36.6; O2SAT 96; BMI 39.3
--- NOTE | 2022-07-12 11:28 | EXP.ANES.CKL ---
[facility] Medical History Abnormal cardiovascular stress test Atypical angina Chest pain COPD suggested by initial evaluation Coronary artery calcification seen on CT scan Dyspnea Dyspnea on exertion History of smoking 30 or more pack years Preop cardiovascular exam Pulmonary nodule Right bundle branch block Surgical History History of right knee surgery Family History (Updated 07/12/22 @ 10:58 by Nola Pérez, RN) Other Liver cancer Social History (Updated 07/12/22 @ 11:00 by Nola Pérez, RN) Smoking Status: Former smoker how long ago did patient quit smokin second hand exposure: No alcohol intake: former substance use type: denies use current occupational status: retired Travel in the last 8 weeks: None household members: none housing: house lives independently: Yes marital status: current occupational exposures/hazards: No caffeine: Yes special sterling needs: No agree to transfusion: No do you feel safe at home: Yes victim of physical abuse: No victim of emotional abuse: No victim of sexual abuse: No would you like helpful sources: No [facility] Anesthesia Checklist Patient Identification Patient Identification: Arm Band Structural Data Admitted From: Home Planned Operative Procedure/s: colonoscopy Consent for Planned Operative Procedure(s) Verified: Yes Verified Documents: Surgical Consent and History and Physical NPO Status Verified Time NPO: 00:00 Additional verifications Anesthesia Reactions: No Airway Assessment C-Spine Mobility Assessed: Yes TMJ Mobility Assessed: Yes Dentition: Edentulous Neurological Assessment Level of Consciousness: Awake and Alert Anesthesia Plan Anesthesia Risk discussed: Yes Anesthesia Plan: Verified ASA Class: III Anesthesia Type: MAC
--- NOTE | 2022-07-12 11:34 | EXP.GEN.HP ---
HPI HPI HPI: Patient is a 71-year-old male from [facility] with history of COPD, greater than [id number] smoking history previously, coronary artery disease, angina, pulmonary nodule, right bundle branch block, congestive heart failure.? I had seen him as an inpatient consultation several months ago for abdominal swelling. Patient had undergone left heart catheterization on 01/02/2022 which revealed mild to moderate diffuse left main disease.? Recommendations were made for medical management.? At that time he underwent a CT scan of the abdomen and pelvis which revealed findings of small ventral hernia lateral to mesh with 12 mm defect, findings stable.? 7.7 x 4.3 x 8.6 cm collection of fat ventral to the distal sternum.? Findings compatible with herniation of mesenteric fat related to small ventral defect... Bilateral fat filled inguinal hernias.? Findings suggesting chronic changes of previous epiploic appendagitis.? Findings stable since 08/20/2016.? Diverticulosis.? No evidence of diverticulitis. ? Surgical consultation was obtained for this.? Patient had undergone laparoscopic ventral hernia repair by Dr. Coreas in 2000 for a 4 x 4 centimeter umbilical hernia with placement of [employer] mesh.? Interestingly the patient had undergone open left inguinal hernia repair and repair of umbilical hernia by Dr. Rehman in March 2004 with interestingly placement of Marlex prefix mesh plug.? I had seen the patient in 2012 and he had severe acute appendicitis.? At that time he was noted to have an epigastric hernia with chronically incarcerated fatty tissues.? I did perform colonoscopy on 08/31/2013 which revealed pandiverticulosis and multiple polyps.? He actually had tubular adenoma x5.? I had recommended a 3-year follow-up colonoscopy at that time which was 9 years ago. Patient was recently referred for rectal bleeding.? He states that for couple of weeks he has noticed some blood on the toilet paper.? Arrangements were made for colonoscopy although it was felt that the patient would carry increased risk and difficulty with colonoscopy given his comorbidities. [facility] Medical History Abnormal cardiovascular stress test Atypical angina Chest pain COPD suggested by initial evaluation Coronary artery calcification seen on CT scan Dyspnea Dyspnea on exertion History of smoking 30 or more pack years Preop cardiovascular exam Pulmonary nodule Right bundle branch block Surgical History History of right knee surgery Family History (Updated 07/12/22 @ 10:58 by Nola Pérez RN) Liver cancer Social History (Updated 07/12/22 @ 11:00 by Nola Pérez, RN) Smoking Status: Former smoker how long ago did patient quit smokin second hand exposure: No alcohol intake: former substance use type: denies use current occupational status: retired Travel in the last 8 weeks: None household members: none housing: house lives independently: Yes marital status: current occupational exposures/hazards: No caffeine: Yes special sterling needs: No agree to transfusion: No do you feel safe at home: Yes victim of physical abuse: No victim of emotional abuse: No victim of sexual abuse: No would you like helpful sources: No Meds Home Medications and Allergies Home Medications Medication Instructions Recorded Confirmed Type loratadine 10 mg tablet 10 mg PO DAILY allergies 02/25/22 07/12/22 History aspirin 81 mg tablet,delayed 81 mg PO DAILY [facility] #30 03/21/22 07/12/22 Rx release tabs albuterol sulfate 90 mcg/actuation 2 puff inhalation QID PRN 05/13/22 07/12/22 Rx aerosol inhaler (ProAir HFA) shortness of breath or wheezing 90 days #8.5 grams ranolazine 1,000 mg 1,000 mg PO BID Chest pain 07/12/22 07/12/22 History tablet,extended release,12 hr (Ranexa) torsemide 100 mg tablet
[2022-07-12 11:53] VITALS: O2SAT 97
--- NOTE | 2022-07-12 13:17 | HMH.SCOPE ---
Procedure: Date: 07/12/22 Patient Date of :: 1950 Procedure Performed:: Total colonoscopy to terminal ileum with numerous polypectomy Indications:: Patient is a 71-year-old male from [facility] with COPD, greater than [id number] history of previous smoking, coronary artery disease, right bundle branch block, congestive heart failure, previous history of polyps. I had seen the patient several months ago as an inpatient consultation for abdominal swelling. Patient has previously undergone ventral hernia repairs and has a known recurrence. I had performed laparoscopic appendectomy on the patient in 2012. I also did a colonoscopy in 2013 which revealed pandiverticulosis and multiple polyps. He actually had tubular adenoma x5 and I had recommended a 3-year follow-up colonoscopy. Patient was recently referred for rectal bleeding. He noted some blood on the toilet paper. Given his prior history it was felt that colonoscopy would be warranted. Arrangements were made for colonoscopy although it was felt that patient would carry some increased risk in technical difficulty with colonoscopy given his comorbidities. Performing Provider:: Good Timmons MD Referring Provider:: Marlee Contreras Sedation:: MAC sedation Procedure:: Patient history was obtained and appropriate physical examination was performed. Patient's medications and allergies were reviewed. Informed consent was obtained after explaining the benefits, alternatives, and risks of the procedure including, but not limited to, bleeding, perforation, missed lesions, and adverse reaction to anesthesia medications. Patient was transported to endoscopy procedure room. Patient was connected to monitoring devices. Throughout the procedure the patient's blood pressure, pulse, and oxygen saturations were monitored continuously. Patient identification and planned procedure were verified by the staff. Patient was positioned in lateral decubitus position. Digital anorectal exam was performed. Variable stiffness Olympus colonoscope was inserted and advanced under direct visualization to the cecum. Adequacy of the colonic preparation was noted. The colonoscope was advanced a short distance into the terminal ileum. The colonoscope was then slowly withdrawn while carefully examining the color, texture, anatomy, and integrity of the mucosoa circumferentially. Within the rectum retroflexion was performed. Colonoscope was then withdrawn. IMPRESSION: Colonic preparation was mostly good. In the cecum there was a rather large complex polyp removed with hot snare. This required maceration with retrieval using Nixon net. In the ascending colon there was a polyp removed with cold snare and biopsy forceps. At the [place] flexure there were a couple of small polyps removed with cold snare. In the proximal transverse colon there were couple polyps removed with cold snare. The distal transverse colon there were a couple of polyps removed with cold snare. In the descending colon there were 5 polyps removed with cold snare. In the proximal sigmoid colon there were 4 polyps removed with cold snare. The mid sigmoid there was a tiny polyp removed with biopsy forceps. Retroflexion within the rectum revealed some prolapsing but nonbleeding internal hemorrhoids. Colonoscope was withdrawn. Total procedure time 1 hour 14 minutes. Findings:: Polyps as noted above. He had a total of 18 (EIGHTEEN) polyps some of which were large complex. Pandiverticulosis Prolapsing nonbleeding internal hemorrhoid Recommendations:: Follow-up colonoscopy pending pathology. Likely 2 or 3 years. Likely would need multi day prep. Source of occasional rectal bleeding likely prolapsing hemorrhoid very probably amenable to medical management. Complications:: None immediately apparent Estimated blood obtained (mL): 3
[2022-07-12 13:18] VITALS: BP 129/81; PULSE 75; RESP 16; TEMP 36.4; O2SAT 93
[2022-07-12 13:28] VITALS: BP 137/87; PULSE 77; RESP 18; O2SAT 92
[2022-07-12 13:38] VITALS: BP 119/80; PULSE 72; RESP 18; O2SAT 95
[2022-07-12 13:48] VITALS: BP 142/80; PULSE 76; RESP 18; O2SAT 97
== END 2022-07-12 13:48 | disposition home or self-care (01) ==
PROVIDERS: PCP Nurse Practitioner Family; Visit Provider Surgery
PROC: 0DJD8ZZ Inspection of Lower Intestinal Tract, Via Natural or Artificial Opening Endoscopic (ICD-10-PCS; principal; 2022-07-12 11:30)
DX: K63.5 Polyp of colon; Z12.11 Encounter for screening for malignant neoplasm of colon; Z79.899 Other long term (current) drug therapy
CPT/HCPCS: 45380; 45385; 88305; J2704

== ENCOUNTER → 2022-08-14 09:47 | Outpatient (CLI) | payer MEDICARE, OTHER, SELFPAY ==
[2022-08-14 10:30] VITALS: PULSE 92; PULSE 98
--- NOTE | 2022-08-14 11:01 | XR_ITS ---
FINAL REPORT CLINICAL HISTORY: knee pain COMPARISON: 07/11/2021 FINDINGS: LEFT KNEE 3 views of the left knee were obtained. There is no acute fracture or dislocation. An intermedullary osito is present in the tibia, the proximal portion is visualized. There is marked lateral subluxation of the tibia relative to the distal femur. There is marked medial compartment joint space narrowing with subchondral sclerosis. There are moderate hypertrophic changes seen at the medial and lateral joint margins. Soft tissues are unremarkable. IMPRESSION: Overall findings are similar to previous. Reviewed, Interpreted and Dictated by Al Nguyễn MD Transcribed by Jyoti Mathews Authenticated and [facility]
== END ==
PROVIDERS: PCP Nurse Practitioner Family; Visit Provider Internal Medicine Pulmonary Disease
DX: M25.562 Pain in left knee (principal); R06.02 Shortness of breath
CPT/HCPCS: 73562; 94060; 94640; 94727; 94729

== ENCOUNTER 2022-08-27 14:59 | Inpatient (IN) | payer MEDICARE, OTHER, SELFPAY ==
[2022-08-27] VITALS (24 sets, daily range): BP systolic 66–140; BP diastolic 37–82; PULSE 61–85; RESP 15–20; TEMP 36.8–36.9; O2SAT 92–100; BMI 40.4; BMI 39.8
--- NOTE | 2022-08-27 15:07 | ECG_ITS ---
APPROVED REPORT Exam: Resting ECG HR:82 bpm ECG Measurements Heart Rate 82 AXES [place] 163 P 58 QRSd 170 QRS -61 QT 416 T 32 QTc 454 Conclusion SINUS RHYTHM INDETERMINATE AXIS RIGHT BUNDLE BRANCH BLOCK [120+ ms QRS DURATION, UPRIGHT V1, 40+ ms S IN I/aVL/V4/V5/V6] POSSIBLE ANTERIOR MYOCARDIAL INFARCTION , PROBABLY OLD [30 ms Q WAVE IN V3/V4, OR R < 0.2 mV IN V4] ABNORMAL ECG UNCONFIRMED REPORT Electronically signed by : Alexander Underwood MD 08/27/2022 19:52:43
--- NOTE | 2022-08-27 15:34 | HMH.EDGENADL ---
Discharge Plan Disposition Patient Disposition: Admitted As Inpatient Condition: Serious Chief Complaint: Shortness of Breath/Dyspnea Prescriptions Prescriptions: No Action loratadine 10 mg tablet 10 mg PO DAILY Stiolto Respimat 2.5-2.5 mcg/actuation mist 2 puff inhalation DAILY lisinopril 10 mg tablet 10 mg PO DAILY albuterol sulfate [ProAir HFA] 90 mcg/actuation HFA aerosol inhaler 2 puff inhalation QID PRN (Reason: shortness of breath or wheezing) 90 Days Qty: 8.5 3RF torsemide 100 mg tablet 100 mg PO DAILY ranolazine [Ranexa] 1,000 mg tablet extended release 12 hr 1,000 mg PO BID polyethylene glycol 3350 [Miralax] 17 gram powder in packet 17 g PO DAILY Referrals Follow up/Referrals: Betty Bella MD [Primary Care Provider] - See instructions Clinical Impressions Clinical Impression: Acute hypotension, Acute kidney injury superimposed on chronic kidney disease Discharge ED Provider: Seun Pinto General Adult HPI General Chief complaint: Shortness of Breath/Dyspnea Stated complaint: dizzy,soa Time Seen by Provider: 08/27/22 15:45 Mode of Arrival: Wheelchair Source of Information: Patient Limitations: No Limitations Description of Symptoms (Recalled from ER Triage Doc. by RN): pt to ed c/o shortness of breath and dizziness x2 days. pt reports calling his pcp with symptoms and being advised to come to ed for eval. History of Present Illness HPI narrative: Patient states for the past 2 days he has had dizziness, lightheadedness, particularly when he sits up or stands up or drives. Improved when he lays down. He has increased shortness of breath. He is on oxygen at night only, COPD documented in his prior record with pulmonary fibrosis and pulmonary emphysema. Denies any recent cough or hemoptysis. Denies any swelling of the legs. He has had some vomiting and diarrhea recently. He denies any pain including chest pain, abdominal pain, back pain. Denies any difficulty urinating. Denies any recent changes in his medications. He was seen by orthopedics today, but was short of breath and had a blood pressure in the 90s, therefore was sent to the emergency department. Related Data Home Medications Medication Instructions Recorded Confirmed loratadine 10 mg tablet 10 mg PO DAILY allergies 02/25/22 08/27/22 ranolazine 1,000 mg 1,000 mg PO BID Chest pain 07/12/22 08/27/22 tablet,extended release,12 hr (Ranexa) torsemide 100 mg tablet 100 mg PO DAILY Fluid 07/12/22 08/27/22 lisinopril 10 mg tablet 10 mg PO DAILY High blood pressure 07/23/22 08/27/22 tiotropium 2.5 mcg-olodaterol 2.5 2 puff inhalation DAILY per md 08/14/22 08/27/22 mcg/actuation mist for inhalation (Stiolto Respimat) polyethylene glycol 3350 17 gram 17 g PO DAILY per md 08/27/22 08/27/22 oral powder packet (Miralax) Previous Rx's Medication Instructions Recorded albuterol sulfate 90 mcg/actuation 2 puff inhalation QID PRN 05/13/22 aerosol inhaler (ProAir HFA) shortness of breath or wheezing 90 days #8.5 grams Allergies Allergy/AdvReac Type Severity Reaction Status Date / Time No Known Drug Allergies Allergy Unknown Verified 08/27/22 15:06 [facility] Disclaimer: The information contained in this section may have been updated after the patient was seen, as this information can be updated by other users. Medical History Abnormal cardiovascular stress test Atypical angina Chest pain Chronic fatigue COPD (chronic obstructive pulmonary disease) COPD mixed type COPD suggested by initial evaluation Coronary artery calcification seen on CT scan Dyspnea Dyspnea on exertion History of smoking 30 or more pack years Preop cardiovascular exam Pulmonary emphysema Pulmonary fibrosis, unspecified Pulmonary nodule Restrictive lung disease Right bundle branch block Sleep disorder breathing Surgical History (Reviewed 08/27
--- NOTE | 2022-08-27 15:35 | XR_ITS ---
FINAL REPORT CLINICAL HISTORY: soa COMPARISON: May 2022 FINDINGS: The heart size is normal. The mediastinum is within normal limits. There is mild atelectasis or scarring in the left lung base. There is no pleural effusion. There is no pneumothorax. The bony thorax is intact. IMPRESSION: Mild left base atelectasis or scarring. Reviewed, Interpreted and Dictated by Good Hand III, MD Transcribed by Luis Jacobson Authenticated and [facility]
[2022-08-27 15:51] LABS: Coronavirus 19, PCR Not Detected (NotDetected); Influenza A, PCR Not Detected (NotDetected); Influenza B, PCR Not Detected (NotDetected)
--- NOTE | 2022-08-27 15:54 | PC.NURSE ---
MICHELA AYALA at for pt marieal
[2022-08-27 15:57] LABS: Chloride 97 mmol/L (98-107); Potassium 5.4 mmoL/L (3.5-5.1); Sodium 132 mmol/L (136-145)
[2022-08-27 16:00] LABS: Anion Gap 17.4 mEq/L (5-15); Blood Urea Nitrogen 70 mg/dl (9-20); Carbon Dioxide 23 mmol/L (22.0-30.0); Creatinine Clearance Estimated 19 mL/min (50-200); Estimated Glomerular Filt Rate 9 ml/min (>60); GFR (African American) 10 ML/MIN (>60)
[2022-08-27 16:01] LABS: Basophils # 0.1 K/mm3 (0-0.2); Basophils % 0.9 % (0.1-2.0); Calcium 9.4 mg/dl (8.4-10.2); Eosinophils # 0.1 K/mm3 (0.0-0.4); Eosinophils % 1.5 % (0.1-12.0); Glucose 124 mg/dl (74-100); Hemoglobin 14.2 g/dL (14.1-18.0); Lymphocytes # 1.9 K/mm3 (0.7-4.5); Mean Corpuscular Hemoglobin 32.4 pg (27.0-31.2); Mean Corpuscular Volume 98.3 fl (80-94); Mean Platelet Volume 8.9 fl (7.4-10.4); Monocytes # 0.7 K/mm3 (0.1-1.0); Monocytes % 7.7 % (1.7-9.3); Neutrophils # 5.7 K/mm3 (1.8-7.8); Neutrophils % 66.9 % (37.0-80.0); Platelet Count 338 K/mm3 (142-424); Red Blood Count 4.38 M/mm3 (4.60-6.20); Red Cell Distribution Width 13.5 % (11.5-17.5); White Blood Count 8.5 K/mm3 (4.8-10.8)
--- NOTE | 2022-08-27 16:05 | PC.NURSE ---
critical result called from the lab. notified
[2022-08-27 16:13] LABS: Lactic Acid 2.3 mmol/L (0.7-2.1); Troponin I < 0.01 ng/ml (0.00-0.034)
[2022-08-27 16:15] LABS: Alanine Aminotransferase 29 U/L (12-78); Albumin Level 4.6 g/dl (3.5-5.0); Alkaline Phosphatase 106 U/L (38-126); Aspartate Amino Transferase 32 U/L (17-59); Bilirubin,Direct 0.2 mg/dl (0.0-0.4); Bilirubin,Indirect 0.6 mg/dL (0.0-0.9); Bilirubin,Total 0.8 mg/dl (0.2-1.3); Bilirubin,Unconjugated 0.5 mg/dL (0.0-1.1); Total Protein,Serum 7.6 g/dl (6.3-8.2)
--- NOTE | 2022-08-27 16:40 | PC.NURSE ---
house notified for admission
--- NOTE | 2022-08-27 16:56 | PC.NURSE ---
pt continues to be hypotensive Dr Pinto aware wanted a 2nd IV and hang another liter of fluid
--- NOTE | 2022-08-27 17:08 | PC.NURSE ---
pt sitting up on sitting up on ED stretcher. He reports no needs at this time, just curious when are we gonna get my room upstairs I reported they are working on that at this time, no other needs at this time.
--- NOTE | 2022-08-27 17:35 | PC.NURSE ---
pt being transported up for admission
--- NOTE | 2022-08-27 17:36 | PC.NURSE ---
Pt arrived to the floor at this time
--- NOTE | 2022-08-27 17:53 | EXP.HP ---
History of Present Illness *Admission Date: 08/27/22 *Reason for visit:: dizziness, weakness *History of present illness: Pleasant 72-year-old gentleman with history of obesity, COPD, hypertension, CKD who presented to orthopedic office for outpatient follow-up. On arrival he was found to be hypotensive and sent to the ER for further evaluation. He complains of shortness of breath and dizziness for the past 2 to 3 days. States he was feeling lightheaded when he stood, sits up, or drives. Its better when he lays down. Wears oxygen at 2 L nightly due to documented history of pulmonary fibrosis and emphysema. Denies any recent cough, hemoptysis, chest pain, congestion. Remarked about his legs not being swollen anymore. Complains of decreased urine output. On review of his medications, he is on diuretics and KRYSTAL inhibitor's. Initial work-up in the ER concerning for orthostatic hypotension and significant ANTONI on CKD. Creatinine elevated to 6.4 with BUN of 70. He denies any pain including chest pain, abdominal pain, back pain.? Admitted to medicine for further management of ANTONI, hypotension, medication adjustment. Received 1 L IV fluid in the ER with improvement in blood pressure by the time he arrived to the floor. Patient states he feels little better, is eating dinner. Became somewhat tearful when told that his kidneys were not functioning well. Appears simple on interview. States he is illiterate. His sister is his next of kin (Sepideh Lobato) [facility] Disclaimer: The information contained in this section may have been updated after the patient was seen, as this information can be updated by other users. Medical History Abnormal cardiovascular stress test Atypical angina Chest pain Chronic fatigue COPD (chronic obstructive pulmonary disease) COPD mixed type COPD suggested by initial evaluation Coronary artery calcification seen on CT scan Dyspnea Dyspnea on exertion History of smoking 30 or more pack years Preop cardiovascular exam Pulmonary emphysema Pulmonary fibrosis, unspecified Pulmonary nodule Restrictive lung disease Right bundle branch block Sleep disorder breathing Surgical History History of colonoscopy History of right knee surgery Family History Liver cancer Social History Smoking Status: Never smoker how long ago did patient quit smokin second hand exposure: No alcohol intake: former substance use type: denies use current occupational status: retired Travel in the last 8 weeks: None household members: none housing: house lives independently: Yes marital status: current occupational exposures/hazards: No caffeine: Yes special sterling needs: No agree to transfusion: No do you feel safe at home: Yes victim of physical abuse: No victim of emotional abuse: No victim of sexual abuse: No would you like helpful sources: No Review of Systems Review of Systems Review of systems (narrative): 14 point review of systems performed, pertinent positives and negatives as per HPI Constitutional Constitutional: Denies headache(s) and Denies weakness ENT Ears, Nose, Mouth, and Throat: Reports dizziness and Denies headache(s) *Musculoskeletal Musculoskeletal: Denies numbness *Neurologic Neurologic: Reports dizziness, Denies headache(s), Denies numbness and Denies weakness Meds Home Medications and Allergies Home Medications Medication Instructions Recorded Confirmed Type loratadine 10 mg tablet 10 mg PO DAILY allergies 02/25/22 08/27/22 History albuterol sulfate 90 mcg/actuation 2 puff inhalation QID PRN 05/13/22 08/27/22 Rx aerosol inhaler (ProAir HFA) shortness of breath or wheezing 90 days #8.5 grams ranolazine 1,000 mg 1,000 mg PO BID Chest pain 07/12/22
[2022-08-27 19:36] LABS: Reflex Lactic Add Lactic Reflex
[2022-08-27 19:36] LABS: Troponin I < 0.01 ng/ml (0.00-0.034)
[2022-08-27 20:20] LABS: Lactic Acid Follow Up (RFLX 1) 1.6 mmol/L (0.7-2.1)
[2022-08-27 22:50] LABS: Troponin I < 0.01 ng/ml (0.00-0.034)
[2022-08-28] VITALS (9 sets, daily range): BP systolic 92–112; BP diastolic 51–75; PULSE 60–84; RESP 14–22; TEMP 36.5–37; O2SAT 95–99; BMI 39.8
--- NOTE | 2022-08-28 05:15 | PC.NURSE ---
Pt A&O x4. BP has remained soft t/o shift. Denies any discomfort. He is currently on 1L O2 NC. Rhonchi noted to anterior lung flynn with scattered wheezing. Pt has voided per urinal. No BM this shift. Medications administered per nov. Call light within reach.
[2022-08-28 06:06] LABS: Basophils # 0.1 K/mm3 (0-0.2); Basophils % 0.9 % (0.1-2.0); Eosinophils # 0.1 K/mm3 (0.0-0.4); Eosinophils % 2.3 % (0.1-12.0); Hematocrit 36.6 % (42.0-52.0); Lymphocytes # 1.6 K/mm3 (0.7-4.5); Lymphocytes % 31.9 % (10-50); Mean Corpuscular HGB Conc 33.1 g/dL (31.8-35.4); Mean Corpuscular Hemoglobin 32.3 pg (27.0-31.2); Mean Corpuscular Volume 97.4 fl (80-94); Mean Platelet Volume 8.4 fl (7.4-10.4); Monocytes # 0.4 K/mm3 (0.1-1.0); Monocytes % 8.7 % (1.7-9.3); Neutrophils # 2.8 K/mm3 (1.8-7.8); Neutrophils % 56.2 % (37.0-80.0); Platelet Count 250 K/mm3 (142-424); Red Blood Count 3.76 M/mm3 (4.60-6.20); Red Cell Distribution Width 13.7 % (11.5-17.5)
[2022-08-28 06:11] LABS: Chloride 103 mmol/L (98-107); Potassium 4.6 mmoL/L (3.5-5.1); Sodium 133 mmol/L (136-145)
[2022-08-28 06:14] LABS: Alanine Aminotransferase 20 U/L (12-78); Albumin Level 3.5 g/dl (3.5-5.0); Albumin/Globulin Ratio 1.3 (1.1-1.8); Alkaline Phosphatase 75 U/L (38-126); Anion Gap 13.6 mEq/L (5-15); Aspartate Amino Transferase 25 U/L (17-59); Bilirubin,Total 0.7 mg/dl (0.2-1.3); Blood Urea Nitrogen 57 mg/dl (9-20); Calcium 8.6 mg/dl (8.4-10.2); Carbon Dioxide 21 mmol/L (22.0-30.0); Creatinine Clearance Estimated 34 mL/min (50-200); Estimated Glomerular Filt Rate 16 ml/min (>60); GFR (African American) 20 ML/MIN (>60); Globulin 2.6 g/dL (1.3-3.2); Glucose 116 mg/dl (74-100); Magnesium 2.1 mg/dl (1.6-2.3); Total Protein,Serum 6.1 g/dl (6.3-8.2)
[2022-08-28 06:16] LABS: Hemoglobin 12.2 g/dL (14.1-18.0)
[2022-08-28 08:24] LABS: Adenovirus F 40/41, stool Not Detected (NotDetected); Astrovirus Not Detected (NotDetected); Campylobacter Not Detected (NotDetected); Clostridium Difficile A/B, PCR Not Detected (NotDetected); Cryptosporidium Not Detected (NotDetected); Cyclospora Cayetanesis Not Detected (NotDetected); Entamoeba histolytica Not Detected (NotDetected); Enteroaggregative E coli Not Detected (NotDetected); Enteropathogenic E coli Not Detected (NotDetected); Enterotoxigenic E coli Not Detected (NotDetected); Giardia lamblia Not Detected (NotDetected); Norovirus Not Detected (NotDetected); Plesimonas Shigalloides, PCR Not Detected (NotDetected); Rotavirus A Not Detected (NotDetected); Salmonella, PCR Not Detected (NotDetected); Sapovirus Not Detected (NotDetected); Shiga-like toxin E coli Not Detected (NotDetected); Shigella Enterovasive E coli Not Detected (NotDetected); Vibrio Cholerae Not Detected (NotDetected); Vibrio, PCR Not Detected (NotDetected); Yersinia Entercolitica, PCR Not Detected (NotDetected)
--- NOTE | 2022-08-28 09:14 | HMH.OTEV ---
OT Inpatient Evaluation Rehab OT IP Evaluation Start: 08/27/22 19:33 Freq: ONCE Status: Active Protocol: Document 08/28/22 09:09 PRASHANT (Rec: 08/28/22 09:14 [id number] Rehab OT IP Assessment Subjective History Pt oriented x 3. Pt was admitted on 08/27/22 due to dizziness and weakness. Pt has a medical history of obesity, COPD, hypertension, CKD who presented to orthopedic office for outpatient follow-up. On arrival he was found to be hypotensive and sent to the ER for further evaluation. He complains of shortness of breath and dizziness for the past 2 to 3 days. Prior to being in the hospital, pt lived at home alone. Pt claims he was independent with all ADLs and IADLs. Pt also still drove. He used a cane during ambulation. Subjective I just got up and got dizzy. Objective Patient Orientation Person,Place,Birthday,Month Upper Extremity Gross ROM WFL Transfer Training Sit/Stand Transfer Assist Level Supervision/Stand by Chair Transfer Ability Supervision/Stand by Chair Transfer Technique Sit to/from Ambulatory Chair Transfer Assistive Devices None Lower Body Dressing Ability Standby Assistance Overall Commode/Toilet Transfer Ability Standby Assistance Commode/Toilet Transfer Technique Sit to/from Ambulatory Rehab OT IP prob,goals,plan Problems Date of Evaluation: 08/28/22 Rehab Potential Rehab Potential Innapropriate for Skilled Therapy Discharge Plan OT Discharge Plan At this time, pt appears to be at his baseline with functional transfers and ADL independence. Pt can return home once he is medically stable per physician. Thank you for involving OT services in patient's plan of care. Eval Complexity Eval Charge Codes 37632 - Moderate Complexity G Codes G -code Required No PHYSICIAN CERTIFICATION: I certify the specified therapy services for Stuart Solomon are required, authorized, and reviewed
--- NOTE | 2022-08-28 09:58 | HMH.PHAINT1 ---
Pharmacy Intervention Comments: Medication reconciliation completed via chart review and external fill history. -Susan Jiménez, PharmD Candidate 2022
--- NOTE | 2022-08-28 10:47 | HMH.PTEV ---
Physical Therapy Evaluation Rehab PT IP Evaluation Start: 08/27/22 19:33 Freq: ONCE Status: Active Protocol: Document 08/28/22 09:10 DENEEN (Rec: 08/28/22 10:47 DENEEN [id number]) Subjective/History History History 72 yowm adm to [facility] with ANTONI and hypotension. He reports he lives alone, no steps to enter the home, he is generally able to ambulate independently with cane. Subjective Subjective He reports feeling a littl foggy this morning, but agree to mobility. Rehab PT IP Eval Objective Appearance Patient Behavior Appropriate Patient Orientation Person,Place,Time Difficulty following instructions none Speech Pattern Clear Ambulation Patient Able to Ambulate Yes Ambulation Observation IP General Gait Pattern Observation Wide Based Gait Ambulation Distance (feet) 30 Ambulation Assistive Device Large Base Quad Cane Ambulation Ability Supervision/Stand by Balance Ability to Arise Able, uses arms to help Sitting Balance Steady, safe Standing Balance Steady, wide stance Dynamic Sitting Balance Ability Good Dynamic Standing Balance Ability Fair Transfers Bed Transfer Ability Supervision/Stand by Chair Transfer Ability Supervision/Stand by Sit to Stand Bed Transfer Ability Supervision/Stand by Sit to Stand Chair Transfer Ability Supervision/Stand by ROM All Extremities PT ROM Status WFL MMT All Extremities PT MMT WFL Rehab PT IP prob,goals,plan Problems Date of Evaluation: 08/28/22 Discharge Plan PT Discharge Plan Pt currently appears to be at baseline for all mobility and is appropriate to return home once medically stable. Recommend Home Health therapy upon D/C. G -code Required No Eval Complexity Eval Charge Codes 29838 - Moderate Complexity PHYSICIAN CERTIFICATION: I certify the specified therapy services for Stuart Solomon are required, authorized, and reviewed every 30 days.
--- NOTE | 2022-08-28 13:22 | EXP.ACUTE.PN ---
Subjective *Date: 08/28/22 *Time: 13:26 Interval history: Mr. Solomon did well overnight with tolerance of IV fluids. Wearing oxygen this morning however he wears it at night at home, 2 L chronically at baseline. Denies any chest pain or significant shortness of breath. States his stomach feels a little off today with mild nausea but no emesis. No diarrhea. Informed that his kidney function is somewhat better today, this made him happy. Medical Exam Vital signs and Labs for Last 24 Hours: Vital Signs Temp Pulse Pulse Pulse Resp BP BP 08/28/22 08:00 73 08/28/22 09:43 08/28/22 08:00 84 08/28/22 08:00 08/28/22 08:00 98.6 F 84 18 112/69 08/28/22 04:00 70 08/28/22 06:00 78 15 105/69 L 08/28/22 04:00 97.7 F 75 15 92/51 L 08/28/22 00:00 70 08/27/22 23:50 08/28/22 02:00 72 14 108/60 L 08/27/22 20:00 70 08/27/22 22:00 70 15 87/57 L 08/28/22 00:00 98.0 F 72 15 92/53 L 08/27/22 20:00 98.3 F 74 98/59 L 08/27/22 19:00 98.4 F 79 15 94/65 L 08/27/22 17:59 08/27/22 17:20 67 17 140/67 08/27/22 17:11 73 17 99/82 L 08/27/22 17:00 18 77/59 L 08/27/22 16:49 20 78/45 L 08/27/22 16:40 82 18 72/45 L 08/27/22 16:38 61 17 71/40 L 08/27/22 16:35 72 16 69/48 L 08/27/22 16:31 82 17 72/37 L 08/27/22 16:21 69 18 91/51 L 08/27/22 16:10 75 17 75/46 L 08/27/22 16:00 75 20 78/53 L 08/27/22 15:54 74 15 81/56 L 08/27/22 15:53 75 19 89/52 L 08/27/22 15:50 78 20 81/54 L 08/27/22 15:43 75 15 93/50 L 08/27/22 15:40 72 18 67/48 L 08/27/22 15:35 73 20 66/37 L 08/27/22 17:34 98.3 F 62 20 102/67 L 08/27/22 15:21 98.3 F 85 20 79/47 L Pulse Ox 08/28/22 08:00 95 08/28/22 09:43 97 08/28/22 08:00 08/28/22 08:00 96 08/28/22 08:00 96 08/28/22 04:00 08/28/22 06:00 97 08/28/22 04:00 96 08/28/22 00:00 08/27/22 23:50 97 08/28/22 02:00 99 08/27/22 20:00 08/27/22 22:00 98 08/28/22 00:00 97 08/27/22 20:00 97 08/27/22 19:00 97 08/27/22 17:59 92 L 08/27/22 17:20 98 08/27/22 17:11 96 08/27/22 17:00 97 08/27/22 16:49 100 08/27/22 16:40 94 L 08/27/22 16:38 97 08/27/22 16:35 98 08/27/22 16:31 98 08/27/22 16:21 98 08/27/22 16:10 96 08/27/22 16:00 97 08/27/22 15:54 98 08/27/22 15:53 98 08/27/22 15:50 97 08/27/22 15:43 96 08/27/22 15:40 97 08/27/22 15:35 97 08/27/22 17:34 08/27/22 15:21 96 Intake and Output 08/27/22 08/28/22 08/28/22 23:59 07:59 15:59 Intake Total 480 / 480 560 / 560 Output Total 450 / 450 1150 / 2000 850 / 2000 Balance 30 / 30 -1150 / -1440 -290 / -1440 Intake: Intake, Oral Amount 480 / 480 560 / 560 Output: Output, Urine Amount 450 / 450 1150 / 2000 850 / 2000 Other: Number of Unmeasured Voids 1 Number of Bowel Movements 1 Weight 133.3 kg 133.3 kg Patient Weight 08/28/22 23:59 Weight 133.3 kg Laboratory Results - last 24 hr 08/27/22 08:19: Stl Aeromonas (PCR) Not detected, Stl C. cayetanensis PCR Not detected, Stool Rotavirus (PCR) Not detected, Stl Adenov F 40/41 PCR Not detected, Stool Astrovirus (PCR) Not detected, Stool Campylobacter PCR Not detected, Stl C.difficile Tox PCR Not detected, Stool Cryptosporidium PCR Not detected, Stl E.coli Shiga Tox PCR Not detected, Stool E coli O157 PCR Not detected, Stl Enterotoxigenic E PCR Not detected, Stool EPEC (PCR) Not detected, Stool EAEC (PCR) Not detected, Stl E. histolytica PCR Not detected, Stool Giardia Lamblia PCR Not detected, Stool Salmonella PCR Not detected, Stool Sapovirus (PCR) Not detected, Stl P. shigelloides PCR Not detected, Stl Shigella/EIEC PCR Not detected, St Y.enterocolitica PCR Not detected, Stool Vibrio (PCR) Not detected, Stl Vibrio cholerae PCR Not detected, Stl Norovirus GI/GII PCR N
--- NOTE | 2022-08-28 16:00 | PC.NURSE ---
Patient has been up to chair for most of the day, standby assist to BR, alert and oriented x3, perrla, lung sounds diminished in bl bases, HR reg, no edema noted, peripheral pulses 2+, voids per urinal w/o difficulty, abd soft and nontender, active bowel sounds in all quads, denies any cp or soa, c/o dizziness which is unchanged since arrival, bed in lowest position with call light in reach.
[2022-08-28 18:36] LABS: Anion Gap 13.4 mEq/L (5-15); Blood Urea Nitrogen 47 mg/dl (9-20); Calcium 9.1 mg/dl (8.4-10.2); Carbon Dioxide 24 mmol/L (22.0-30.0); Chloride 102 mmol/L (98-107); Creatinine Clearance Estimated 52 mL/min (50-200); Estimated Glomerular Filt Rate 27 ml/min (>60); GFR (African American) 32 ML/MIN (>60); Glucose 149 mg/dl (74-100); Potassium 5.4 mmoL/L (3.5-5.1); Sodium 134 mmol/L (136-145)
[2022-08-29] VITALS: BP 102/58; PULSE 70; PULSE 77; RESP 14; TEMP 36.5; O2SAT 96
[2022-08-29 04:00] VITALS: BP 166/91; PULSE 70; RESP 16; TEMP 36.8; O2SAT 96
--- NOTE | 2022-08-29 04:53 | PC.NURSE ---
No acute changes this shift. Pt has remained normotensive this shift. Has voided per urinal with good output. Was placed on 2L O2 NC after desatting while sleeping. Pt recovered quickly after O2 applied. Was given bed bath by staff. Call light within reach.
[2022-08-29 05:00] VITALS: BMI 39.7
[2022-08-29 06:31] LABS: Basophils # 0.1 K/mm3 (0-0.2); Eosinophils # 0.1 K/mm3 (0.0-0.4); Eosinophils % 2.2 % (0.1-12.0); Hematocrit 38.7 % (42.0-52.0); Hemoglobin 12.7 g/dL (14.1-18.0); Lymphocytes # 1.4 K/mm3 (0.7-4.5); Lymphocytes % 28.7 % (10-50); Mean Corpuscular HGB Conc 32.9 g/dL (31.8-35.4); Mean Corpuscular Hemoglobin 31.9 pg (27.0-31.2); Mean Corpuscular Volume 96.7 fl (80-94); Mean Platelet Volume 8.1 fl (7.4-10.4); Monocytes # 0.5 K/mm3 (0.1-1.0); Neutrophils # 2.9 K/mm3 (1.8-7.8); Neutrophils % 58.1 % (37.0-80.0); Platelet Count 236 K/mm3 (142-424); Red Cell Distribution Width 13.7 % (11.5-17.5)
[2022-08-29 06:35] LABS: Chloride 104 mmol/L (98-107); Potassium 5.1 mmoL/L (3.5-5.1); Sodium 135 mmol/L (136-145)
[2022-08-29 06:38] LABS: Alanine Aminotransferase 22 U/L (12-78); Albumin Level 3.8 g/dl (3.5-5.0); Albumin/Globulin Ratio 1.5 (1.1-1.8); Alkaline Phosphatase 84 U/L (38-126); Anion Gap 12.1 mEq/L (5-15); Aspartate Amino Transferase 28 U/L (17-59); Bilirubin,Total 0.4 mg/dl (0.2-1.3); Blood Urea Nitrogen 35 mg/dl (9-20); Calcium 9.1 mg/dl (8.4-10.2); Carbon Dioxide 24 mmol/L (22.0-30.0); Creatinine Clearance Estimated 69 mL/min (50-200); Estimated Glomerular Filt Rate 37 ml/min (>60); GFR (African American) 45 ML/MIN (>60); Globulin 2.6 g/dL (1.3-3.2); Glucose 124 mg/dl (74-100); Magnesium 2.1 mg/dl (1.6-2.3); Total Protein,Serum 6.4 g/dl (6.3-8.2)
--- NOTE | 2022-08-29 07:51 | EXP.DC.SUM ---
General Admission date:: 08/27/22 Discharge date: 08/29/22 HPI HPI HPI: Pleasant 72-year-old gentleman with history of obesity, COPD, hypertension, CKD who presented to orthopedic office for outpatient follow-up. On arrival he was found to be hypotensive and sent to the ER for further evaluation. He complains of shortness of breath and dizziness for the past 2 to 3 days. States he was feeling lightheaded when he stood, sits up, or drives. Its better when he lays down. Wears oxygen at 2 L nightly due to documented history of pulmonary fibrosis and emphysema. Denies any recent cough, hemoptysis, chest pain, congestion. Remarked about his legs not being swollen anymore. Complains of decreased urine output. On review of his medications, he is on diuretics and KRYSTAL inhibitor's. Initial work-up in the ER concerning for orthostatic hypotension and significant ANTONI on CKD. Creatinine elevated to 6.4 with BUN of 70. He denies any pain including chest pain, abdominal pain, back pain.? Admitted to medicine for further management of ANTONI, hypotension, medication adjustment. Received 1 L IV fluid in the ER with improvement in blood pressure by the time he arrived to the floor. Patient states he feels little better, is eating dinner. Became somewhat tearful when told that his kidneys were not functioning well. Appears simple on interview. States he is illiterate. His sister is his next of kin (Sepideh Lobato) Hospital Course Hospital Course Hospital Course: 72-year-old male with history of COPD, hypertension, obesity who presents with elevated creatinine greater than 6.? Diagnosis of ANTONI on CKD and orthostatic hypotension.? Received IV fluids in the ER.? Admitted for monitoring and fluid resuscitation.? Problems addressed as follows: ANTONI on CKD Uremia -ANTONI present on admission. Severely elevated creatinine and BUN. Baseline creatinine is approximately 1.3. Gentle rehydration administered with significant improvement. Creatinine of 6.4 on admission, improved to 1.8 on day of discharge. Pleased with improvement. BUN decreasing appropriately as well. Suspect secondary to diuretic and blood pressure meds. Continue to hold on discharge, reevaluate usage/administration at follow-up. Would benefit from repeat labs in 1 to 2 weeks. Dizziness Loose stool -Patient has had intermittent dizziness since admission. Has worked well with PT however. Ambulating at baseline. No falls or confusion. No unsteadiness on his feet. Suspected secondary to his dehydration and hypotension. Have held his lisinopril, Lasix, spironolactone at discharge as he is normotensive. Recommend reevaluation in the outpatient setting and further work-up. Trial of meclizine on day of discharge with improvement in dizziness. Ears were normal without any congestion on exam. We will send with short course of meclizine to use as needed at home if continues to have occasional dizziness. In regard to loose stools, only had 1 loose stool daily with negative diarrhea panel. No concern for infectious etiology. Suspect secondary to IV fluid administration and diet change during admission. Continue to monitor. No antibiotics during admission. COPD Pulmonary fibrosis -Continue home breathing treatments. Nighttime oxygen use at baseline. Continue nighttime oxygen use at discharge. Medically stable for discharge home. Given patient's age, is living by himself, difficulty in getting to appointments and limited leaving the house only for medical needs, I feel he would benefit from home health evaluation. Will refer to home health for eval for possible PT/OT/nursing care. Needs close follow-up with his PCP in the next 1 to 2-week Exam Data for Last 24 hours Vital signs and Labs for Last 24 Hours: Temp Pulse Resp BP Pulse Ox 98.3 F 70 16 166/91 H 96 08/29/22 04:00 08/29/22 04:00 08/29/22 04:00 08/29/22 04:00 08/29/22 04:00 Laboratory Results - last 24 hr 08/27/22 08:1
[2022-08-29 08:00] VITALS: BP 104/53; PULSE 83; PULSE 85; PULSE 88; RESP 20; TEMP 36.5; O2SAT 97; O2SAT 98
--- NOTE | 2022-08-29 09:58 | SW/DCPLANNER ---
Addendum entered by Asiya Salazar 08/29/22 11:21: [facility] stated that services will begin tomorrow for this patient. Addendum entered by Asiya Salazar 08/29/22 11:04: Information/order has been faxed to [facility]. Original Note: I spoke with this patient regarding plans once medically stable for discharge. PT/OT evaluated patient and stated that he is safe to return home with home health services. Patient stated that he has used home health in the past and is agreeable at discharge. Patient information/order will be faxed to Abby Meza at time of discharge. Patient may discharge home later today.
--- NOTE | 2022-08-29 10:48 | P.EN_ITS ---
Home health hzcf-zx-wwsm encounter note Name: Stuart Solomon Date of : 1950 Admission date: 08/27/2022 Date of discussion: 08/29/2022 I certify that this patient, Stuart Solomon, is under my care and that I had a zxjl-ri-jryg encounter that meets the [facility] requirements for this encounter (90 days prior to the start of care date or within 30 days after the start of care date). This jvhi-br-vjqi encounter for the patient occurred on 08/29/2022 . I certify, based on my findings with the following services are medically necessary for home health services (yes when applicable) 1. Nursing: YES 2. Physical therapy: YES 3. Occupational Therapy: YES 4. Speech-language pathology: no The encounter with the patient was in whole, or in part, for the following medical condition, which is the primary reason for home health care. Condition: COPD, CHF, CAD, obesity, debility, mild cognitive impairment. I feel this patient's medical conditions and needs, the fact he lives by himself and getting out to appointments is difficult with driving, he would benefit greatly from home health for management of medications and therapy services to improve mobility and stability. My clinical findings from the encounter support the patient is homebound due to (yes when applicable): 1. Leaving home requires a considerable and taxing effort: YES 2. Absences from home are infrequent or short duration or to receive health care treatment: YES 3. Medically restricted due to immunosuppression, infectious illness, risk of infection or injury: no
--- NOTE | 2022-08-29 11:11 | HMH.PHAINT1 ---
Pharmacy Intervention Comments: Discharge counseling completed at bedside with the patient. Discussed new medications (meclizine), continued medications, and discontinued medications (lisinopril, spironolactone, and torsemide). Overviewed indication and possible side effects of meclizine. Patient states he has trouble reading so marked X on Rx bottles that were discontinued. He has no other questions or concerns at this time.
[2022-08-29 11:29] VITALS: BP 104/77; PULSE 93; RESP 21; TEMP 37; O2SAT 96
--- NOTE | 2022-08-29 11:59 | PC.NURSE ---
Reported to Dr Alas that pt states he no longer feels dizzy following administration of Meclizine.
--- NOTE | 2022-08-30 13:17 | CARE MANAGER ---
Contacted patient related to hospital discharge. He states he feels better today. He has had some dizziness, but not as bad as it was. 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 Denies other questions or concerns. KAREN Alvarado
== END 2022-08-29 12:00 | disposition home health service (06) | DRG 684 ==
LOC: ER 16:40 → 2ND 16:55
PROVIDERS: Admitting Provider Internal Medicine Adolescent Medicine; Emergency Provider Emergency Medicine; PCP Family Medicine; Visit Provider Internal Medicine Adolescent Medicine
DX: N17.9 Acute kidney failure, unspecified (principal); N18.9 Chronic kidney disease, unspecified; Z99.81 Dependence on supplemental oxygen; J43.9 Emphysema, unspecified; J44.9 Chronic obstructive pulmonary disease, unspecified; J84.10 Pulmonary fibrosis, unspecified; E86.0 Dehydration; E66.9 Obesity, unspecified; Z68.39 Body mass index [BMI] 39.0-39.9, adult; I95.1 Orthostatic hypotension
CPT/HCPCS: 36415; 71045; 80048; 80053; 80076; 83605; 83735; 84484; 85025; 87040; 87506; 93005; 94640; 97162; 97166; 99291; C9803; U0003; U0005

== ENCOUNTER → 2023-01-10 14:40 | Outpatient (CLI) | payer MEDICARE, OTHER, SELFPAY ==
--- NOTE | 2023-01-10 14:40 | CT_ITS ---
FINAL REPORT TECHNIQUE: Axial CT images were performed from the lung apices through the upper abdomen. Coronal reformats were submitted. This study was performed with techniques to keep radiation doses as low as reasonably achievable (ALARA). Individualized dose reduction techniques using automated exposure control or adjustment of mA and/or kV according to the patient's size were employed. CLINICAL HISTORY: pulmonary nodule, SOA COMPARISON: 05/13/2022 FINDINGS: There is no axillary adenopathy. There is no hilar or mediastinal mass or adenopathy. Heart size is normal. There is no pericardial or pleural effusion. There is mild atelectasis. Again noted is a lobular nodule in the right costophrenic angle measuring 22 mm and was 22 mm. There is no new mass or nodule. Limited images of the upper abdomen demonstrate fatty infiltration of the liver. Again noted is a supraumbilical midline ventral hernia just beneath the xiphoid containing fat. IMPRESSION: Stable soft tissue nodule favored to be benign. Additional follow-up CT in 6-12 months is recommended to evaluate for continued stability. Reviewed, Interpreted and Dictated by Good Hand III, MD Transcribed by Adelaida Galicia Authenticated and [facility]
--- NOTE | 2023-01-10 15:02 | XR_ITS ---
FINAL REPORT CLINICAL HISTORY: LT KNEE PAIN FINDINGS: LEFT KNEE Three views demonstrate no acute fracture. There are moderate to severe degenerative changes. There are postoperative changes in the tibia. There is severe medial compartment narrowing. There is mild lateral subluxation of the tibia in relation to the distal femur. No acute soft tissue abnormality is seen. IMPRESSION: Chronic and degenerative changes as above. Reviewed, Interpreted and Dictated by Good Hand III, MD Transcribed by Adelaida Galicia Authenticated and [facility]
== END ==
PROVIDERS: PCP Family Medicine; Visit Provider Internal Medicine Pulmonary Disease
DX: R91.8 Other nonspecific abnormal finding of lung field (principal); M25.562 Pain in left knee
CPT/HCPCS: 71250; 73562

== ENCOUNTER 2023-03-13 08:00 | Outpatient (RCR) | payer MEDICARE, OTHER, SELFPAY | END 2023-03-13 08:05 | disposition home or self-care (01) | LOC: PT 08:00 | PROVIDERS: PCP Family Medicine; Visit Provider Internal Medicine | DX: I89.0 Lymphedema, not elsewhere classified (principal) | CPT/HCPCS: 97110; 97140; 97163 ==

== ENCOUNTER → 2023-04-04 13:54 | Outpatient (CLI) | payer MEDICARE, OTHER, SELFPAY ==
--- NOTE | 2023-04-04 13:59 | XR_ITS ---
FINAL REPORT CLINICAL HISTORY: Rt knee pain FINDINGS: AP, lateral and oblique views of the right knee were obtained. There is no prior exam for comparison. There is no acute osseous abnormality of the right knee. There are postoperative changes from a right knee arthroplasty. The hardware appears intact. The soft tissues are normal. There is no joint effusion. IMPRESSION: No acute osseous abnormality of the right knee. Reviewed, Interpreted and Dictated by Nahed Navarro MD Transcribed by Chiquita Mckay Authenticated and [facility]
--- NOTE | 2023-04-04 13:59 | XR_ITS ---
FINAL REPORT CLINICAL HISTORY: Lt knee pain FINDINGS: AP, lateral and oblique views of the left knee were obtained. A prior from 01/10/2023 was used for comparison. There is no acute osseous abnormality of the left knee. There is advanced tricompartmental degenerative disease most pronounced at the medial compartment. There is a small joint effusion. There is intramedullary osito in the tibia. IMPRESSION: No acute abnormality. Degenerative disease. Small joint effusion. Reviewed, Interpreted and Dictated by Nahed Navarro MD Transcribed by Chiquita Mckay Authenticated and . [facility]
== END ==
PROVIDERS: PCP Family Medicine; Visit Provider Orthopaedic Surgery
DX: M17.12 Unilateral primary osteoarthritis, left knee; M25.562 Pain in left knee; M25.561 Pain in right knee
CPT/HCPCS: 73562

== ENCOUNTER → 2023-07-17 13:10 | Outpatient (CLI) | payer MEDICARE, OTHER, SELFPAY | PROVIDERS: PCP Family Medicine; Visit Provider Internal Medicine Pulmonary Disease | DX: R06.09 Other forms of dyspnea (principal) | CPT/HCPCS: 94060; 94727; 94729 ==

== ENCOUNTER 2023-09-16 15:07 | Outpatient (CLI) | payer MEDICARE, OTHER, SELFPAY ==
--- NOTE | 2023-09-16 15:15 | CT_ITS ---
FINAL REPORT TECHNIQUE: Axial CT images were performed from the lung apices through the upper abdomen. Coronal reformats were submitted. This study was performed with techniques to keep radiation doses as low as reasonably achievable (ALARA). Individualized dose reduction techniques using automated exposure control or adjustment of mA and/or kV according to the patient's size were employed. CLINICAL HISTORY: HR-NODULE COMPARISON: 01/10/2023 FINDINGS: There is no axillary adenopathy. There is mild atelectasis and/or scar present in the lung bases bilaterally. There is a 22 mm nodule in the right costophrenic angle with calcification, stable in appearance since the prior exam of December 2022. There is a 17 mm cavitary focus in the anterior right lower lobe, which may represent a small cavitary lesion or focus of bronchiectasis, which is stable since the prior CT. Bronchial wall thickening is present with right lower lobe bronchiectasis. There is a supraumbilical midline ventral hernia identified on the prior CT which contains fat and extends superiorly anterior to the sternum, measuring 7.8 cm in transverse diameter. There is no hilar or mediastinal mass or adenopathy. Heart size is normal. There is no pericardial or pleural effusion. Limited images of the upper abdomen are unremarkable. IMPRESSION: 22 mm nodule in the right costophrenic angle, stable and unchanged since the prior CT of December 2022. 17 mm cavitary focus in the right anterior right lower lobe, likely a cavitary lesion or a focus of bronchiectasis. It is also stable since the prior CT. Supraumbilical midline ventral hernia as described. Bronchial wall thickening in the inferior right lower lobe, consistent in appearance with bronchiectasis, stable. Reviewed, Interpreted and Dictated by Good Hand III, MD Transcribed by Priscila Stubbs Authenticated and [facility]
== END 2023-09-16 23:59 ==
LOC: RAD 15:08
PROVIDERS: PCP Family Medicine; Visit Provider Internal Medicine Pulmonary Disease
DX: J84.9 Interstitial pulmonary disease, unspecified (principal)
CPT/HCPCS: 71250

== ENCOUNTER 2023-11-25 15:22 | Outpatient (CLI) | payer MEDICARE, OTHER, SELFPAY ==
--- NOTE | 2023-11-25 15:31 | XR_ITS ---
FINAL REPORT CLINICAL HISTORY: DFU left foot weightbearing views COMPARISON: None FINDINGS: LEFT FOOT: Three views of the left foot were obtained. There is no acute fracture or dislocation. There is moderate degenerative change. Hallux valgus deformity is noted. There is a pes planus deformity. There are postoperative changes of the tibia. There is a plantar calcaneal spur. There is no bony erosion to suggest osteomyelitis. Vascular calcifications are noted. IMPRESSION: Moderate degenerative change without acute bony abnormality. No evidence of bony erosion to suggest osteomyelitis. MRI would be more sensitive exam for evaluation of possible osteomyelitis. Reviewed, Interpreted and Dictated by Good Hand III, MD Transcribed by Pauline Mello Authenticated and [facility]
== END 2023-11-25 23:59 ==
PROVIDERS: PCP Family Medicine; Visit Provider Nurse Practitioner
DX: E11.621 Type 2 diabetes mellitus with foot ulcer; L97.509 Non-pressure chronic ulcer of other part of unspecified foot with unspecified severity; B38.9 Coccidioidomycosis, unspecified; M79.672 Pain in left foot
CPT/HCPCS: 73630; 87070; 87205

== ENCOUNTER 2025-01-26 09:35 | Outpatient (CLI) | payer MEDICARE, OTHER, SELFPAY ==
[2025-01-26 10:30] VITALS: PULSE 85; PULSE 90
[2025-01-26] MEDS: ALBUTEROL 0.083% 2.5 MG/3 ML NEB IH (10:30)
== END 2025-01-26 23:59 | disposition home or self-care (01) ==
LOC: RT 09:36
PROVIDERS: PCP Family Medicine; Visit Provider Internal Medicine Pulmonary Disease
DX: J44.9 Chronic obstructive pulmonary disease, unspecified (principal)
CPT/HCPCS: 94060; 94618; 94640; 94726; 94729

== ENCOUNTER 2025-03-10 10:00 | Outpatient (CLI) | payer MEDICARE, OTHER, SELFPAY ==
--- OUTSIDE RECORDS SUMMARY | 2025-03-10 10:04 | XMS_ITS | Clinical Summary ---
Author Organization [facility] Address [address] [place] [id number] Care Team Providers Care Sagger Preparer Name Role Phone Myranda Lopez Primary Care Provider Unavail able Social History Tobacco Use Types Packs/Day Years Used Date Smoking Tobacco: Never Assessed Sex and Gender Information Value Date Recorded Sex Assigned at Male 03/12/2022 6:42 PM CDT Legal Sex Male 6:42 PM CDT Gender Identity Male 03/12/2022 6:42 PM CDT Sexual Orientation Not on file Plan of Treatment Not on file Insurance [place] [address] [place] [address] [employer] Care Teams Sagger Preparer Relationship Specialty Start Date End Date Myranda Lopez PCP - General 11/07/22
--- OUTSIDE RECORDS SUMMARY | 2025-03-10 10:04 | XMS_ITS | Referral Summary ---
Author Organization [facility] Address [address] [place] [address] Care Team Providers Care Sales Account Leader Name Role Phone Myranda Lopez Primary Care [...] on file Insurance MEDICARE [place] [place] [id number] [employer] Care Teams Sales Account Leader Relationship Specialty Start Date End Date Myranda Lopez PCP - General 11/07/22
--- OUTSIDE RECORDS SUMMARY | 2025-03-10 10:04 | XMS_ITS ---
Author Organization [facility] Care Team Providers Care Clerk Funeral Detail Name Role Phone Luis Enrique Figueroa Unavailable Unavailable Allergies and adverse reactions No Known Allergies Care Team Name Role Address Phone Organization Dates Luis Enrique Figueroa PCP [address] [place] [address] (Office): : [facility] 01/13/2024 - 03/03/2024 Goals Section Goals Description Status Target Date Advanced Directives will be honored through next review Active 04/21/2024 Maintain optimal oral hygiene status through nex t review Active 04/21/2024 Resident will communicate an y complaints of discomfort and/or pain to staff through next review Active 04/21/2024 Resident will have decreased risk for falls through nursing interventions Active 04/21/2024 Resident will have no injury r/t side rail use through next review. Active 04/21/2024 Resident will have toileting needs met by staff through nursing interventions daily through next review Active 04/21/2024 Resident will maintain adequ ate nutrition AEB having a stable weight. Active 04/21/2024 Resident will remain free fr om complications related to infection through next review Active 04/21/2024 Resident's Skin will remain intact through the n ext review. Active 04/21/2024 Surgical incision to left kn ee will be well approximated by next review. Active 04/21/2024 The resident will be able to return to the community upon meeting goals Active 04/21/2024 The resident will be free fr om discomfort or adverse reactions related to anticoagulant use through the review date. Active 04/21/2024 The resident will cooperate with care and will allow care to be provided daily. Active 04/21/2024 The resident will have no co mplications related to SOB though the review date. Active 04/21/2024 The resident will have no co mplications related to diabetes through the review date. Active 04/21/2024 The resident will have no s/ sx of complications r/t fluid deficit through the review date. Active 04/21/2024 The resident will have no s/ sx of complications relate to fluid overload through the review date. Active 04/21/2024 Will achieve/maintain maximu m functional mobility through next review Active 04/21/2024 Will attend/participate in a ctivities of choice through next review Active 04/21/2024 Will express/exhibit satisfa ction with stay and care through next review Active 04/21/2024 Will have needs met by barron moise of staff as needed through next review Active 04/21/2024 Will have no cardiac complications through next review Active 04/21/2024 Will not exhibit an avoidable decline in mood th rough next review Active 04/21/2024 Immunizations Immunization Status Vaccine Details Vaccine Code CodeSystem Date Notes Influenza completed Influenza, high-dose, split virus, quadrivalent, injectable, preservative free 197 CVX created date: 01/14/2024 administer ed date: 08/04/2023 TB 2 Step Mantoux Skin Test completed tuberculin skin test; unspecified formulation lotNumber: [id number] expiry: 08/15/2025 Mfg: par [employer] Given 0.1 ml Left Forearm intradermally Step 2 of Multi-step with next step required 98 CVX created date: 01/21/2024 consent date: 01/21/2024 administer ed date: 01/21/2024 Educated by fernando on 01/21/2024 TB 2 Step Mantoux Skin Test completed tuberculin skin test; unspecified formulation lotNumber: [id number] expiry: 10/16/2024 Mfg: SIVA Given 0.1 ml Left Forearm intradermally Step 1 of Multi-step with next step required 98 CVX created date: 01/19/2024 consent date: 01/19/2024 administer ed date: 01/14/2024 Educated by Yajaira Jones RN on 01/16/2024 Flu Vaccine Prior To Admission (historical only) completed unknown vaccine or immune globulin 999 CVX created date: 01/19/2024 administer ed date: 04/23/2017 Flu Vaccine Prior To Admission (historical only) completed unknown vaccine or immune globulin 999 CVX created date: 01/19/2024 administer ed date: 01/15/2017 Mental Status Section Date Assessment Total Score Description 03/03/2024 BIMS 15 cognitively int act CAM 0 No delirium ind icated PHQ-9 00 01/15/2024 BIMS 15 cognitively int act CAM 0 No delirium ind icated PHQ-9 00 Problems Problem # Description Date of onset Resolved Date Code CodeSystem Concern Status 1 DEFECTS IN THE COMPLEMENT SYSTEM 01/14/[address] active 2 AFTERCARE FOLLOWING JOINT REPLACEMENT SURGERY 01/13/[address] active 3 ATHEROSCLEROTIC HEART DISEASE OF [place] CORONARY ARTERY WITHOUT ANGINA PECTORIS 01/13/[address] active 4 BODY MASS INDEX [BMI]40.0-44.9, ADULT 01/13/[address] active 5 CHRONIC KIDNEY DISEASE, STAGE 2 (MILD) 01/13/[address] active 6 CHRONIC OBSTRUCTIVE PULMONARY DISEASE, UNSPECIFIED 01/13/[address] active 7 CHRONIC RESPIRATORY FAILURE WITH HYPOXIA 01/13/[address] active 8 DIFFICULTY IN WALKING, NOT ELSEWHERE CLASSIFIED 01/13/[address] active 9 ESSENTIAL (PRIMARY) HYPERTENSION 01/13/[address] active 10 GASTRO-ESOPHAGEAL REFLUX DISEASE WITHOUT ESOPHAGITIS 01/13/[address] active 11 HYPERLIPIDEMIA, UNSPECIFIED 01/13/[address] active 12 MORBID (SEVERE) OBESITY DUE TO EXCESS CALORIES 01/13/[address] active 13 MUSCLE WASTING AND ATROPHY, NOT ELSEWHERE CLASSIFIED, LEFT LOWER LEG 01/13/[address] active 14 MUSCLE WASTING AND ATROPHY, NOT ELSEWHERE CLASSIFIED, RIGHT LOWER LEG 01/13/[address] active 15 MUSCLE WEAKNESS (GENERALIZED) 01/13/[address] active 16 NOCTURIA 01/13/[address] active 17 OTHER SEASONAL ALLERGIC RHINITIS 01/13/[address] active 18 PAIN DUE TO INTERNAL ORTHOPEDIC PROSTHETIC DEVICES, IMPLANTS AND GRAFTS, SUBSEQUENT ENCOUNTER 01/13/[address] active 19 PRESENCE OF LEFT ARTIFICIAL KNEE JOINT 01/13/[address] active 20 RESPIRATORY DISORDERS IN DISEASES CLASSIFIED ELSEWHERE 01/13/[address] active 21 TYPE 2 DIABETES MELLITUS WITH DIABETIC NEUROPATHY, UNSPECIFIED 01/13/[address] active 22 UNILATERAL PRIMARY OSTEOARTHRITIS, LEFT KNEE 01/13/[address] active 23 UNSTEADINESS ON FEET 01/13/[address] active Reason for Referral No Reasons for Referral Entered Social History Social History Observation Description Start Date End Date Code Code System Current Smoking Status Tobacco smoking consumption unknown 017175766 SNOMED CT Sex Assigned At Male 1950 53185-7 [facility] Gender Identity Male [id number] [address] Vital Signs Code Code System Vitals Name Values and Units Timing Information 83990-9 [facility] Pain Level Value=0.0 03/03/2024 9279-1 [facility] Respiratory Rate Value=18.0 Units=/m in 03/03/2024 8462-4 [facility] Blood Pressure-Diastolic Value=66 Un its=mmHg 03/03/2024 8480-6 [facility] Blood Pressure-Systolic Itgmg=381 Un its=mmHg 03/03/2024 8310-5 [facility] Body Temperature Value=98.7 Units= F 03/03/2024 8867-4 [facility] Heart rate Value=90.0 Units=/min 20005-9 [facility] O2 % BldC Oximetry Value=91.0 Units= % 03/03/2024 99764-0 [facility] Weight Cjfnv=154.3 Units=Lbs 09/2023 2339-0 [facility] Blood Sugar Luvnn=136.0 Units=mg/dL 01/20/2024 8302-2 [facility] Height Value=68.0 Units=Inches 01/14/2024
--- OUTSIDE RECORDS SUMMARY | 2025-03-10 10:04 | XMS_ITS | Clinical Summary ---
Author Organization Healthcare Address [address] [place] [address] Care Team Providers Care Accounting Software Specialist Name Role Phone Felipe Bella MD Primary Care Provider [phone] Allergies No known active allergies Medications ranolazine (Ranexa) 500 MG 12 hr tablet Take 1 tablet (500 mg) by mouth 2 (two) times a day. 2 Active atorvastatin (Lipitor) 10 MG tablet Take 1 tablet (10 mg) by mouth 1 (one) time each day. 3 Active Fluticasone-Ume clidin-Vilant (Trelegy Ellipta) 100-62.5-25 MCG/ACT aerosol powder Inhale 1 puff 1 (one) time each day. Active loratadine (Claritin) 10 MG tablet Take 1 tablet (10 mg) by mouth 1 (one) time each day. Active OneTouch Ultra test stripIndication s:Type 2 diabetes mellitus with hyperglycemia, without long-term current use of insulin ([facility]) Check blood glucose once daily before meals 100 each 5 3 Active oxyCODONE (Roxicodone) 5 MG immediate release tablet Take 1 tablet (5 mg) by mouth every 6 (six) hours if needed for severe pain. 50 tablet 4 Active Additional Information Patient not taking.Reported on 02/23/2024 Aspirin Low Dose 81 MG EC tablet Take 1 tablet (81 mg) by mouth 1 (one) time each day. HOLD while taking Eliquis x 4 weeks and then resume 4 Active traMADol (Ultram) 50 MG tablet Take 1 tablet (50 mg) by mouth every 6 (six) hours if needed for moderate pain (pain score 3-5. use prior to oxycodone or hydromorphone). 60 tablet 4 Active Additional Information Patient not taking.Reported on 02/23/2024 acetaminophen (Tylenol) 500 MG tablet Take 2 tablets (1,000 mg) by mouth every 8 (eight) hours. 100 tablet 4 Active Additional Information Patient not taking.Reported on 02/23/2024 methocarbamol (Robaxin) 500 MG tablet Take 1 tablet (500 mg) by mouth 3 (three) times a day if needed for muscle spasms. 30 tablet 4 Active Additional Information Patient not taking.Reported on 02/23/2024 apixaban (Eliquis) 2.5 MG tablet Take 1 tablet (2.5 mg) by mouth 2 (two) times a day. For 4 weeks post-op for blood clot prevention 56 tablet 4 Active Additional Information Patient not taking.Reported on 02/23/2024 torsemide (Demadex) 20 MG tablet Take 1 tablet (20 mg) by mouth 2 (two) times a day. DO NOT RESUME UNLESS SYSTOLIC BP REMAINS > 120 - see hospital medicine recommendation section for further details 0 4 Active metFORMIN (Glucophage) 1000 MG tabletIndicatio ns:Type 2 diabetes mellitus with other specified complication, without long-term current use of insulin ([facility]) Take 1 tablet (1,000 mg) by mouth 2 (two) times a day with meals. 180 tablet 3 4 Active dulaglutide (Trulicity) 3 MG/0.5ML inj. pen INJECT THE CONTENTS OF 1 PEN UNDER THE SKIN ONCE WEEKLY 2 mL 3 4 Active Active Problems Problem Noted Date Diagnosed Date Localized osteoarthritis of left knee 01/08/2024 Acute cystitis with hematuria 10/30/2023 Class III obesity with body mass index (BMI) of 40.0 or higher 10/29/2023 Type 2 diabetes mellitus wit h hyperglycemia, without long-term current use of insulin 07/30/2023 Neuropathy 07/30/2023 Abnormal ECG 07/25/2023 07/25/2023 Atypical angina 07/25/2023 07/25/2023 CAD (coronary artery disease) 07/25/2023 Congestive heart failure 07/25/2023 023 Right bundle branch block 07/25/20232022 COPD mixed type 07/25/2023 07/25/2023 Dyspnea on exertion 07/25/2023 07/25/2023 Elevated left ventricular end-diastolic pressure (LVEDP) 07/25/2023 07/25/2023 Injury of kidney 07/25/2023 07/25/2023 Hyperkalemia 07/25/2023 07/25/2023 Hematuria 07/25/2023 07/25/2023 Obesity 07/25/2023 07/25/2023 Pulmonary nodule 07/25/2023 07/25/2023 Tubular adenoma of colon 07/25/2023 023 Arthritis of left knee 05/28/2023 Family History Medical History Relation Name Comments Anesthesia problems Neg Hx Malig Hyperthermia Neg Hx Social History Tobacco Use Types Packs/Day Years Used Date Smoking Tobacco: Former Cigarettes Q uit: 2009 Smokeless Tobacco: Never Tobacco Cessation:Counseling Given: Not Answered Alcohol Use Standard Drinks/Week Comments Never 0 (1 standard drink = 0.6 oz pur e alcohol) Humiliation, Afraid, Rape, and Kick questionnair e Answer Date Recorded Within the last year, have y ou been afraid of your partner or ex-partner? No 01/09/2024 Within the last year, have y ou been humiliated or emotionally abused in other ways by your partner or ex-partner? No Within the last year, have y ou been kicked, hit, slapped, or otherwise physically hurt by your partner or ex-partner? No 01/09/2024 Within the last year, have y ou been raped or forced to have any kind of sexual activity by your partner or ex-partner? No 01/09/2024 PHQ-2 Answer Date Recorded Patient Health Questionnaire-2 Score 0 10/29/2023 Hunger Vital Sign Answer Date Recorded Within the past 12 months, y ou worried that your food would run out before you got the money to buy more. Never true 01/09/20 24 Within the past 12 months, t he food you bought just didn't last and you didn't have money to get more. Never true 01/09/2024 PRAPARE - Transportation Answer Date Re corded In the past 12 months, has l ack of transportation kept you from medical appointments or from getting medications? No 12/15 In the past 12 months, has l ack of transportation kept you from meetings, work, or from getting things needed for daily living? No 01/09/2024 Housing Stability Vital Sign Answer Tanmay e Recorded In the last 12 months, was t here a time when you were not able to pay the mortgage or rent on time? No 01/09/2024 In the last 12 months, how many places have you lived? 1 01/09/2024 In the last 12 months, was t here a time when you did not have a steady place to sleep or slept in a nursing home (including now)? No 01/09/2024 CAGE ASSESSMENT Answer Date Recorded Cage unable to access Not on file 01/08/2024 Cage max number of drinks Not on file 2023 Cage Beverages a week Not on file 01/08/2024 Have you ever felt you should CUT down on your d rinking? 0 01/08/2024 Have you been ANNOYED by people criticizing your drinking? 0 01/08/2024 Have you felt GUILTY about your drinking? 0 01/08/2024 Have you had a drink first t uyen in the morning (EYE-TRAUMA THERAPIST) to steady your nerves or to get rid of a hangover? 0 01/08/2024 CAGE Questionnaire Score 0 024 Utilities Answer Date Recorded In the past 12 months has th e electric, gas, oil, or water company threatened to shut off services in your home? No 01/09/2024 Sex and Gender Information Value Date Recorded Sex Assigned at Not on file Legal Sex Male 10:14 PM EDT Gender Identity Male 01/08/2024 8:38 AM EDT Sexual Orientation Not on file Last Filed Vital Signs Vital Sign Reading Time Taken Comments Blood Pressure 111/62 02/23/2024 12:52 PM EDT Pulse 72 02/23/2024 12:52 PM EDT Temperature 36.3 C (97.4 F) 01/13/2024 11:11 AM EDT Respiratory Rate 16 01/13/2024 11:11 AM EDT Oxygen Saturation 95% 02/23/2024 12:52 PM EDT Inhaled Oxygen Concentration - - Weight 121 kg (266 lb 12.1 oz) 02/23/2024 12:52 PM EDT Height 182.9 cm (6') 02/23/2024 12:52 PM EDT Body Mass Index 36.18 02/23/2024 12:52 PM EDT Plan of Treatment Health Maintenance Due Date Last Done Comments [facility]-Hepatitis C Screening 1950 [facility]-Medicare Annual Wellness (AWV) 1950 [facility]-Infant/Child/Adol SDOH Screenings 1950 Diabetes: Dental Exam 1959 [facility]- SDOH Screenings 1967 [facility]-Adult SDOH Screenings 1967 [facility]-DTaP,Tdap,and Td Vaccines (1 - Tdap) 1968 [facility]-Pneumococcal Vaccine: 50+ Years (1 of 2 - PCV) 1968 CT Colonography 1994 Colonoscopy 1994 FIT-DNA 1994 FIT 1994 FOBT 1994 Sigmoidoscopy 1994 [facility]-Colorectal Cancer Screening 1994 [facility]-Zoster Vaccines (1 of 2) 1999 [facility]-Diabetes: Hemoglobin A1C 03/25/202407/2024, 10/29/2023, 06/04/2023 [id number] Vaccine ( season) 2024 [facility]-RSV Vaccine: 60+ Years or (1 - 1-dose 75+ series) 2024 [facility]-Depression Screening 10/29/2024 10/29/2023 [facility]-Influenza Vaccine (Season Ended) 2025 08/04/2023, 04/23/2017, 01/15/2017, Additional history exists [facility]-Obesity Intervention Completed 024, 02/05/2024, 01/23/2024, Additional history exists HPV Vaccines Aged Out No longer eligi ble based on patient's age to complete this topic [facility]-HIB Vaccines Aged Out No longer e ligible based on patient's age to complete this topic [facility]-Hepatitis A Vaccines Aged Out No longer eligible based on patient's age to complete this topic [facility]-IPV Vaccines Aged Out No longer e ligible based on patient's age to complete this topic [facility]-Rotavirus Vaccines Aged Out No lo nger eligible based on patient's age to complete this topic Medical Devices Implanted Type Area Form Presser Device Identifier Shelf Expiration Date Model / Serial / Lot Cement Palacos - [id number] Implanted:Qty: 2 on 01/08/2024 by Cl Amador MD at [facility] Left: Knee [id number] 07/15/2028 [id number] / / [id number] Chg Femoral Triathlon Cr Cpnt - [id number] Implanted:Qty: 1 on 01/08/2024 by Cl Amador MD at [facility] Left: Knee [employer] ([facility])-[id number] 04/08/2028 5510-F-601 / / [id number] Patella Tritanium Asymmetric Metal Backed Patell - [id number] Implanted:Qty: 1 on 01/08/2024 by Cl Amador MD at [facility] Left: Knee [employer] ([facility])-[id number] 10/23/2028 5552-L-381 / / [id number] Chg Insert X3 Triathlon Cs Siz - [id number] Implanted:Qty: 1 on 01/08/2024 by Cl Amador MD at [facility] Left: Knee [employer] ([facility])-[id number] 11/02/2028 5531-G-613 / / [id number] Plate Trthln Prim Tib Base Cemented - [id number] Implanted:Qty: 1 on 01/08/2024 by Cl Amador MD at [facility] Left: Knee [employer] ([facility])-[id number] 01/28/2028 5520-B-600 / / [id number] Procedures Procedure Name Priority Date/Time Associated Diagnosis Comments HEMOGLOBIN A1C Routine 12/25/2023 3:33 PM EDT Type 2 diabetes mellitus with other specified complication, unspecified whether exterminator termite insulin use ([facility]) from Last 3 Months or Most Recently Relevant to Health Maintenance Results * (ABNORMAL) Hemoglobin A1c (12/25/2023 3:33 PM EDT) Hemoglobin A1c 7.3(H) <5.7 % 12/25/2023 6:26 PM EDT [facility] Blood Venous blood specimen / Unknown Venipuncture / Unknown 12/25/2023 3:33 PM EDT 12/25/2023 3:34 PM EDT Narrative [facility] - 12/25/2023 6:26 PM EDT HA1C Interpretive Data: Diagnosis of Diabetes: Diabetic > or = 6.5% Pre-diabetic 5.7 to 6.4% Non-diabetic < or = 5.6% Glycemic Targets for Type I and Type II Diabetics: Non- Adults <7.0% Adults <6.0% Children and Adolescents <7.5% Source: [place] [employer]. Standards of medical care in diabetes,2017. Diabetes Care.2017:40 (suppl 1):S1-S135. HbA1c assay performed by an ion-exchange chromatography method that is certified traceable to the DCCT. Cl Amador MD LAB BLOOD ORDERABLES Final Re sult [facility] [address] [place] [id number] from Last 3 Months or Most Recently Relevant to [place] [phone] [facility] MEDICARE SUPPLEMENT Advance Directives * Full Code (Latest Code Status on File) Date Activated Date Inactivated Comments 01/08/2024 12:38 PM 01/13/2024 5:08 PM Question Answer Comments Patient has decision-making capacity? Yes Care Teams Accounting Software Specialist Relationship Specialty Start Date End Date Felipe Bella MD [address] [place] [address] [address] Ankita JENNIFER [id number] PCP - General 04/07/23
--- NOTE | 2025-03-10 10:06 | XR_ITS ---
FINAL REPORT CLINICAL HISTORY: INJURY B/L KNEE COMPARISON: 04/04/2023 FINDINGS: Three views of the left knee were obtained. There is no acute fracture or dislocation. Post arthroplasty changes are noted. There are post ORIF changes of the tibia. There is no joint effusion. There is no acute soft tissue abnormality. IMPRESSION: No acute abnormality identified. Reviewed, Interpreted and Dictated by Almaz Mercedes MD Transcribed by Pauline Mello Authenticated and [facility]
--- NOTE | 2025-03-10 10:06 | XR_ITS ---
FINAL REPORT CLINICAL HISTORY: knee pain COMPARISON: 04/04/2023 FINDINGS: Three views of the right knee were obtained. There is no acute fracture or dislocation. Post arthroplasty changes are noted. There is a small joint effusion. There is no acute soft tissue abnormality. IMPRESSION: No acute abnormality identified. Reviewed, Interpreted and Dictated by Almaz Mercedes MD Transcribed by Pauline Mello Authenticated and [facility]
== END 2025-03-10 23:59 | disposition home or self-care (01) ==
LOC: RAD 10:01
PROVIDERS: PCP Family Medicine; Visit Provider Nurse Practitioner
DX: S89.91XA Unspecified injury of right lower leg, initial encounter (principal); S89.92XA Unspecified injury of left lower leg, initial encounter
CPT/HCPCS: 73562

== ENCOUNTER 2025-05-03 06:42 | Outpatient (CLI) | payer MEDICARE, OTHER, SELFPAY ==
--- OUTSIDE RECORDS SUMMARY | 2025-05-03 06:44 | XMS_ITS ---
Author Organization Unknown Results OrderDate OrderTestName ResultName ResultDate Value Units Range AbnormalFlag ResultStatus ObservationNotes TestCode ResultCode DateRecorded AccessionNumber DiagnosticSectionCode DiagnosticSectionName Sequence Interpretation Cust om 06/07/2024 00:00:00 Glycohemoglobin (GHb),Total Glycohemoglobin (GHb),Total 9261-56-20M60:00:00 6.7% Reviewed Corry Mercedes 06/07/2024 09:54:24 AM EDT > Glycohemoglobin (GHb),Total Coding Glycohemoglobin (GHb),Total 06/07/2024 00:00:00111/07/2023 00:00:00MicroalbuminA:[id number]:00:00<30 Corry Bowman 09/06/2024 09:17:15 AM EST > Coding Microalbumin 09/06/2024 00:00: 00:00:61WdkldocwgmcnLSO7155-69-02W30:00:54102 Corry Bowman 09/06/2024 09:17:15 AM EST > Coding Microalbumin 09/06/2024 00:00:00111/07/2023 00:00:83XtpxpfoxapaoSBP4899-36-44I24:00:0030 Corry Bowman 09/06/2024 09:17:15 AM EST > Coding Microalbumin Coding ALB 09/06/2024 00:00:00111/07/2023 00:00:73YrnropkzfjosRlfyn6140-30-58W83:00:00yellow Corry Bowman 09/06/2024 09:17:15 AM EST > Coding Microalbumin 09/06/2024 00:00:00111/07/2023 00:00:88UxfzwyxxjxsvWbhowya7550-62-84C56:00:00 clearReCorry Fraga 09/06/2024 09:17:15 AM EST > Coding Microalbumin 09/06/2024 00:00:00111/07/2023 00:00:00Glucose WpcvayeUjayiyt5164-53-88J63:00:00 167mg/dl73 - 118 mg/dlReCorry Fraga 09/06/2024 09:09:46 AM EST > Coding Glucose Fasting 09/06/2024 00:00:00111/07/2023 00:00:00Glycohemoglobin (GHb),TotalGlycohemoglobin (GHb),Ugcms6952-38-07R82:00:007.3%Corry Bowman 09/06/2024 09:16:28 AM EST > Coding Glycohemoglobin (GHb),Total Coding Glycohemoglobin (GHb),Total 09/06/2024 00:00: 00:00:00MicroalbuminA:[id number]:00:00<30 Corry Bowman 12/06/2024 09:09:58 AM EDT > Coding Microalbumin 12/06/2024 00:00: 00:00:46ZoxdfpilzbihTWQ9184-53-22W79:00:40410 Corry Bowman 12/06/2024 09:09:58 AM EDT > Coding Microalbumin 12/06/2024 00:00: 00:00:49VcovcnhospqhNEU6956-84-46U16:00:0030 Corry Bowman 12/06/2024 09:09:58 AM EDT > Coding Microalbumin Coding ALB 12/06/2024 00:00: 00:00:37MdykqwmdqvioVprxz7240-90-37Z28:00:00yellow Corry Bowman 12/06/2024 09:09:58 AM EDT > Coding Microalbumin 12/06/2024 00:00: 00:00:23FjtizlezwwywPhmjlki7919-42-61M00:00:00 clearCorry Bowman 12/06/2024 09:09:58 AM EDT > Coding Microalbumin 12/06/2024 00:00: 00:00:00Glucose UpxjuokZdaevfl2985-69-87I50:00:00 283mg/dl73 - 118 mg/dlCorry Bowman 12/06/2024 09:06:05 AM EDT > Coding Glucose Fasting 12/06/2024 00:00: 00:00:00Glycohemoglobin (GHb),TotalGlycohemoglobin (GHb),Bfiba6191-78-35T09:00:0010.6RCorry Lawson 12/06/2024 09:06:17 AM EDT > Coding Glycohemoglobin (GHb),Total Coding Glycohemoglobin (GHb),Total 12/06/2024 00:00: 00:00:00MicroalbuminA:[id number]:00:0030-300 Corry Bowman 03/10/2025 10:33:32 AM EDT > Coding Microalbumin 03/10/2025 00:00: 00:00:90OqeicmehynoaXAX9372-61-44D81:00:21593 Corry Bowman 03/10/2025 10:33:32 AM EDT > Coding Microalbumin 03/10/2025 00:00: 00:00:79XfpjcmsshpskRLZ6259-83-30P58:00:91725 Corry Bowman 03/10/2025 10:33:32 AM EDT > Coding Microalbumin Coding ALB 03/10/2025 00:00: 00:00:18WkqpwrabiacuEjgks2354-88-33T26:00:00YELLOW Corry Bowman 03/10/2025 10:33:32 AM EDT > Coding Microalbumin 03/10/2025 00:00: 00:00:68QscgmofbwsjcUzvkexb0028-84-58I96:00:00 CLEARCorry Bowman 03/10/2025 10:33:32 AM EDT > Coding Microalbumin 03/10/2025 00:00: 00:00:00Glucose HepulldCiwpayi8346-08-14W74:00:00 245mg/dl73 - 118 mg/dlCorry Bowman 03/10/2025 10:35:56 AM EDT > Coding Glucose Fasting 03/10/2025 00:00: 00:00:00Glycohemoglobin (GHb),TotalGlycohemoglobin (GHb),Kzssz8074-54-52T09:00:0010.6RCorry Lawson 03/10/2025 10:04:42 AM EDT > Coding Glycohemoglobin (GHb),Total Coding Glycohemoglobin (GHb),Total 03/10/2025 00:00:00
--- OUTSIDE RECORDS SUMMARY | 2025-05-03 06:44 | XMS_ITS | Clinical Summary ---
Author Organization [facility] ([place], [place], [place], [place]) Address [address] [place] [address] Care Team Providers Care Oncology Rep Specialist Name Role Phone Myranda Lopez Primary Care Provider Unavail able Social History Tobacco Use Types Packs/Day Years Used Date Smoking Tobacco: Never Assessed Sex and Gender Information Value Date Recorded Sex Assigned at Male 03/12/2022 6:42 PM CDT Legal Sex Male 6:42 PM CDT Gender Identity Male 03/12/2022 6:42 PM CDT Sexual Orientation Not on file Plan of Treatment Not on file Insurance [facility] [address] [place] [address] [place] [address] [address] [place] [address] Care Teams Oncology Rep Specialist Relationship Specialty Start Date End Date Myranda Lopez PCP - General 11/07/22
--- OUTSIDE RECORDS SUMMARY | 2025-05-03 06:44 | XMS_ITS | Referral Summary ---
Author Organization [facility] ([place], [place], [place], [place]) Address [address] [place] [address] Care Team Providers Care Hand Braille Transcriber Name Role Phone Myranda Lopez Primary Care Provider Unavail able Social History Tobacco Use Types Packs/Day Years Used Date Smoking Tobacco: Never Assessed Sex and Gender Information Value Date Recorded Sex Assigned at Male 03/12/2022 6:42 PM CDT Legal Sex Male 6:42 PM CDT Gender Identity Male 03/12/2022 6:42 PM CDT Sexual Orientation Not on file Plan of Treatment Not on file Insurance [facility] [address] [place] [address] [place] [place] [address] [employer] [place] [address] [place] [address] Care Teams Hand Braille Transcriber Relationship Specialty Start Date End Date Myranda Lopez PCP - General 11/07/22
--- OUTSIDE RECORDS SUMMARY | 2025-05-03 06:44 | XMS_ITS ---
Author Organization [facility] Care Team Providers Care Mechatronics Technologist Name Role Phone Luis Enrique Figueroa Unavailable Unavailable Allergies and adverse reactions No Known Allergies Care Team Name Role Address Phone Organization Dates Luis Enrique Figueroa PCP [address] [place] [address] (Office): : [facility] 01/13/2024 - 03/03/2024 Goals [...] completed tuberculin skin test; unspecified formulation lotNumber: [id number] expiry: 08/15/2025 Mfg: par [employer] Given 0.1 ml Left Forearm intradermally Step 2 of Multi-step with next step required 98 CVX created date: 01/21/2024 consent date: 01/21/2024 administer ed date: 01/21/2024 Educated by fernando on 01/21/2024 TB 2 Step Mantoux Skin Test completed tuberculin skin test; unspecified formulation lotNumber: [id number] expiry: 10/16/2024 Mfg: SIVA Given 0.1 ml [...] 1 DEFECTS IN THE COMPLEMENT SYSTEM 01/14/[address] active 2 AFTERCARE FOLLOWING JOINT REPLACEMENT SURGERY 01/13/[address] active 3 ATHEROSCLEROTIC HEART DISEASE OF [place] CORONARY ARTERY WITHOUT ANGINA PECTORIS 01/13/[address] active 4 BODY MASS INDEX [BMI]40.0-44.9, ADULT 01/13/[address] active 5 CHRONIC KIDNEY DISEASE, STAGE 2 (MILD) 01/13/[address] active 6 CHRONIC OBSTRUCTIVE PULMONARY DISEASE, UNSPECIFIED 01/13/[address] active 7 CHRONIC RESPIRATORY FAILURE WITH HYPOXIA 01/13/[address] active 8 DIFFICULTY IN WALKING, NOT ELSEWHERE CLASSIFIED 01/13/[address] active 9 ESSENTIAL (PRIMARY) HYPERTENSION 01/13/[address] active 10 GASTRO-ESOPHAGEAL REFLUX DISEASE WITHOUT ESOPHAGITIS 01/13/[address] active 11 HYPERLIPIDEMIA, UNSPECIFIED 01/13/[address] active 12 MORBID (SEVERE) OBESITY DUE TO EXCESS CALORIES 01/13/[address] active 13 MUSCLE WASTING AND ATROPHY, NOT ELSEWHERE CLASSIFIED, LEFT LOWER LEG 01/13/[address] active 14 MUSCLE WASTING AND ATROPHY, NOT ELSEWHERE CLASSIFIED, RIGHT LOWER LEG 01/13/[address] active 15 MUSCLE WEAKNESS (GENERALIZED) 01/13/[address] active 16 NOCTURIA 01/13/[address] active 17 OTHER SEASONAL ALLERGIC RHINITIS 01/13/[address] active 18 PAIN DUE TO INTERNAL ORTHOPEDIC PROSTHETIC DEVICES, IMPLANTS AND GRAFTS, SUBSEQUENT ENCOUNTER 01/13/[address] active 19 PRESENCE OF LEFT ARTIFICIAL KNEE JOINT 01/13/[address] active 20 RESPIRATORY DISORDERS IN DISEASES CLASSIFIED ELSEWHERE 01/13/[address] active 21 TYPE 2 DIABETES MELLITUS WITH DIABETIC NEUROPATHY, UNSPECIFIED 01/13/[address] active 22 UNILATERAL PRIMARY OSTEOARTHRITIS, LEFT KNEE 01/13/[address] active 23 UNSTEADINESS ON FEET 01/13/[address] active Reason for Referral No Reasons for Referral Entered Social History Social History Observation Description Start Date End Date Code Code System Current Smoking Status Tobacco smoking consumption unknown 209295899 SNOMED CT Sex Assigned At Male 1950 43921-5 [facility] Gender Identity Male [id number] [address] Vital Signs Code Code System Vitals Name Values and Units Timing Information 80763-6 [facility] Pain Level Value=0.0 03/03/2024 9279-1 [facility] Respiratory Rate Value=18.0 Units=/m in 03/03/2024 8462-4 [facility] Blood Pressure-Diastolic Value=66 Un its=mmHg 03/03/2024 8480-6 [facility] Blood Pressure-Systolic Shsgz=129 Un its=mmHg 03/03/2024 8310-5 [facility] Body Temperature Value=98.7 Units= F 03/03/2024 8867-4 [facility] Heart rate Value=90.0 Units=/min 05599-0 [facility] O2 % BldC Oximetry Value=91.0 Units= % 03/03/2024 01303-3 [facility] Weight Fluwd=642.3 Units=Lbs 09/2023 2339-0 [facility] Blood Sugar Acadz=214.0 Units=mg/dL 01/20/2024 8302-2 [facility] Height Value=68.0 Units=Inches 01/14/2024
--- OUTSIDE RECORDS SUMMARY | 2025-05-03 06:44 | XMS_ITS | Clinical Summary ---
Author Organization Healthcare Address [address] [place] [address] Care Team Providers Care Fashion Supervisor Name Role Phone Felipe Bella MD Primary Care Provider [phone] Allergies No known active allergies Medications ranolazine [...] without long-term current use of insulin ([facility]) Check blood glucose once daily before meals [...] without long-term current use of insulin ([facility]) Take 1 tablet (1,000 mg) by mouth [...] place to sleep or slept in a penitentiary (including now)? No 01/09/2024 CAGE ASSESSMENT Answer [...] drink first t uyen in the morning (EYE-TECHNICAL WRITING LEAD/MGR) to steady your nerves or to get [...] Screening 1949 [facility]-Medicare Annual Wellness (AWV) 1949 [facility]-/Child/Adol SDOH Screenings 1949 Diabetes: Dental Exam 1959 [facility]- SDOH Screenings 1967 [facility]-Adult SDOH Screenings 1967 [facility]-DTaP,Tdap,and Td Vaccines (1 - Tdap) 1968 [facility]-Pneumococcal Vaccine: 50+ Years (1 of 2 - PCV) 1968 CT Colonography 1994 Colonoscopy 1994 FIT-DNA 1994 FIT 1994 FOBT 1994 Sigmoidoscopy 1994 [facility]-Colorectal Cancer Screening 1994 [facility]-Zoster Vaccines (1 of 2) 1999 [facility]-Diabetes: Hemoglobin A1C 03/25/202407/2024, 10/29/2023, 06/04/2023 [id number] Vaccine ( - 2023- season) 2024 [facility]-RSV Vaccine: 60+ Years or (1 - 1-dose 75+ series) 2024 [facility]-Depression Screening 10/29/2024 10/29/2023 [facility]-Influenza Vaccine (#1) 05/16/202508/04, 04/23/2017, 01/15/2017, Additional history exists [facility]-Obesity Intervention [...] this topic Medical Devices Implanted Type Area Head Of Digital Advertising & Integration Device Identifier Shelf Expiration Date Model / Serial / Lot Cement Palacos - [id number] Implanted:Qty: 2 on 01/08/2024 by Cl Amador MD at [facility] Left: Knee [employer]-[id number] 07/15/2028 [id number] / / [id number] Chg Femoral Triathlon Cr Cpnt - [id number] Implanted:Qty: 1 on 01/08/2024 by Cl Amador MD at [facility] Left: Knee [employer] ([facility])-[id number] 04/08/2028 5510-F-601 / / [id number] Patella Tritanium Asymmetric Metal Backed Patell - [id number] Implanted:Qty: 1 on 01/08/2024 by Cl Amador MD at [facility] Left: Knee [employer] ([facility])-[id number] 10/23/2028 5552-L-381 / / [id number] Chg Insert X3 Triathlon Cs Siz - [id number] Implanted:Qty: 1 on 01/08/2024 by Cl Amador MD at [facility] Left: Knee [employer] ([facility])-[id number] 11/02/2028 5531-G-613 / / [id number] Plate Trthln Prim Tib Base Cemented - [id number] Implanted:Qty: 1 on 01/08/2024 by Cl Amador MD at [facility] Left: Knee [employer] ([facility])-[id number] 01/28/2028 5520-B-600 / / [id number] Procedures Procedure Name Priority Date/Time Associated Diagnosis Comments HEMOGLOBIN A1C Routine 12/25/2023 3:33 PM EDT Type 2 diabetes mellitus with other specified complication, unspecified whether care home insulin use ([facility]) from Last 3 Months or Most Recently [...] Adults <6.0% Children and Adolescents <7.5% Source: [place] [employer]. Standards of medical care in diabetes,2017. Diabetes Care.2017:40 (suppl 1):S1-S135. HbA1c assay performed by an ion-exchange chromatography method that is certified traceable to the DCCT. Cl Amador MD LAB BLOOD ORDERABLES Final Re sult [facility] [address] [place] [phone] from Last 3 Months or Most Recently Relevant to Health [place] [id number] [facility] MEDICARE SUPPLEMENT Advance Directives * Full Code (Latest Code Status on File) Date Activated Date Inactivated Comments 01/08/2024 12:38 PM 01/13/2024 5:08 PM Question Answer Comments Patient has decision-making capacity? Yes Care Teams Fashion Supervisor Relationship Specialty Start Date End Date Felipe Bella MD [address] [place] [address] #1 #1 Ankita JENNIFER [id number] PCP - General 04/07/23
--- NOTE | 2025-05-03 07:00 | CT_ITS ---
FINAL REPORT TECHNIQUE: Axial images were obtained through the chest without contrast. Sagittal and coronal multiplanar reconstruction images were obtained. This study was performed with techniques to keep radiation doses as low as reasonably achievable (ALARA). Individualized dose reduction techniques using automated exposure control or adjustment of mA and/or kV according to the patient's size were employed. CLINICAL HISTORY: restrictive lung disease COMPARISON: 09/16/2023 FINDINGS: CT CHEST WITHOUT CONTRAST: HIGH RESOLUTION There is no evidence of mediastinal mass or adenopathy. There is mild fatty infiltration of the liver. The gallbladder is present. There is coarse linear scarring present in the lung bases. A localized right lower lobe density measures 23 mm and has associated calcification, similar to the previous exam of 2023. There is an area that may represent a cavitary focus or closely opposed bronchiectasis in the anterior right lower lobe, measuring 12 mm in size, best seen on image #33 of series 2, stable. No new foci of abnormal parenchymal density are seen. No pleural or pericardial effusions are noted. IMPRESSION: Localized right lower lobe density 23 mm in size is stable and unchanged since the prior CT of 2023. There is an area that may represent a cavitary focus or closely opposed bronchiectasis in the anterior right lower lobe, measuring 12 mm in size, also stable. No new foci of adenopathy or nodularity are seen. Reviewed, Interpreted and Dictated by Al Nguyễn MD Transcribed by Priscila Stubbs Authenticated and [facility]
== END 2025-05-03 23:59 | disposition home or self-care (01) ==
LOC: RAD 06:43
PROVIDERS: PCP Family Medicine; Visit Provider Internal Medicine Pulmonary Disease
DX: J98.4 Other disorders of lung (principal); R91.8 Other nonspecific abnormal finding of lung field
CPT/HCPCS: 71250

== ENCOUNTER 2025-05-23 10:43 | Outpatient (CLI) | payer MEDICARE, OTHER, SELFPAY ==
--- NOTE | 2025-05-23 10:47 | XR_ITS ---
FINAL REPORT CLINICAL HISTORY: Evaluation of Right Hallux Pain COMPARISON: None FINDINGS: AP, oblique and lateral views of the right foot were obtained. There is no acute fracture or dislocation. There is hallux valgus deformity with degenerative joint disease most pronounced at the first MTP joint. There is collapse of the midfoot arch. There is no acute soft tissue abnormality. IMPRESSION: Hallux valgus deformity with degenerative disease most pronounced at the first MTP joint. Pes planus deformity. Reviewed, Interpreted and Dictated by Nahed Navarro MD Transcribed by Anita Laurent Authenticated and [facility]
--- OUTSIDE RECORDS SUMMARY | 2025-05-23 10:49 | XMS_ITS | Clinical Summary ---
Author Organization Healthcare Address [address] [place] [address] Care Team Providers Care Facer Operator Name Role Phone Felipe Bella MD Primary Care Provider [phone] Allergies No known active allergies Medications ranolazine [...] hyperglycemia, without long-term current use of insulin ([facility]) Check blood glucose once daily [...] complication, without long-term current use of insulin ([facility]) Take 1 tablet (1,000 mg) [...] place to sleep or slept in a usp (including now)? No 01/09/2024 CAGE ASSESSMENT Answer [...] drink first t uyen in the morning (EYE-DIRECTOR MONEY) to steady your nerves or to get [...] 1999 [facility]-Diabetes: Hemoglobin A1C 03/25/202407/2024, 10/29/2023, 06/04/2023 [id number] Vaccine ( - 2023- season) 2024 [facility]-RSV [...] this topic Medical Devices Implanted Type Area Pbx Mechanic Device Identifier Shelf Expiration Date Model / Serial / Lot Cement Palacos - [id number] Implanted:Qty: 2 on 01/08/2024 by Cl Amador MD at [facility] Left: Knee [employer]-[id number] 07/15/2028 [id number] / / [id number] Chg Femoral Triathlon Cr Cpnt - [id number] Implanted:Qty: 1 on 01/08/2024 by Cl Amador MD at [facility] Left: Knee [employer] ([facility])-[id number] 04/08/2028 5510-F-601 / / [id number] Patella Tritanium Asymmetric Metal Backed Patell - [id number] Implanted:Qty: 1 on 01/08/2024 by Cl Amador MD at [facility] Left: Knee [employer] ([facility])-[id number] 10/23/2028 5552-L-381 / / [id number] Chg Insert X3 Triathlon Cs Siz - [id number] Implanted:Qty: 1 on 01/08/2024 by Cl Amador MD at [facility] Left: Knee [employer] ([facility])-[id number] 11/02/2028 5531-G-613 / / [id number] Plate Trthln Prim Tib Base Cemented - [id number] Implanted:Qty: 1 on 01/08/2024 by Cl Amador MD at [facility] Left: Knee [employer] ([facility])-[id number] 01/28/2028 5520-B-600 / / [id number] Procedures Procedure Name Priority Date/Time Associated Diagnosis Comments HEMOGLOBIN A1C Routine 12/25/2023 3:33 PM EDT Type 2 diabetes mellitus with other specified complication, unspecified whether ferry terminal agent insulin use ([facility]) from Last 3 Months or [...] Adults <6.0% Children and Adolescents <7.5% Source: [place] [employer]. Standards of medical care in diabetes,2017. Diabetes Care.2017:40 (suppl 1):S1-S135. HbA1c assay performed by an ion-exchange chromatography method that is certified traceable to the DCCT. Cl Amador MD LAB BLOOD ORDERABLES Final Re sult [facility] [address] [place] [phone] from Last 3 Months or Most Recently Relevant to [place] [phone] [facility] MEDICARE SUPPLEMENT Advance Directives * Full Code (Latest Code Status on File) Date Activated Date Inactivated Comments 01/08/2024 12:38 PM 01/13/2024 5:08 PM Question Answer Comments Patient has decision-making capacity? Yes Care Teams Facer Operator Relationship Specialty Start Date End Date Felipe Bella MD [address] [place] [address] #1 #1 Ankita JENNIFER [id number] PCP - General 04/07/23
--- OUTSIDE RECORDS SUMMARY | 2025-05-23 10:49 | XMS_ITS | Clinical Summary ---
Author Organization [facility] ([place], [place], [place], [place]) Address [address] [place] [address] Care Team Providers Care Packer Name Role Phone Myranda Lopez Primary Care [...] file Insurance [facility] [address] [place] [id number] [place] [place] [address] [place] [phone] Care Teams Packer Relationship Specialty Start Date End Date Myranda Lopez PCP - General 11/07/22
--- OUTSIDE RECORDS SUMMARY | 2025-05-23 10:49 | XMS_ITS | Referral Summary ---
Author Organization [facility] ([place], [place], [place], [place]) Address [address] [place] [address] Care Team Providers Care Millinery Salesperson Name Role Phone Myranda Lopez Primary Care Provider Unavail able Social History Tobacco Use Types Packs/Day Years Used Date Smoking Tobacco: Never Assessed Sex and Gender Information Value Date Recorded Sex Assigned at Male 03/12/2022 6:42 PM CDT Legal Sex Male 6:42 PM CDT Gender Identity Male 03/12/2022 6:42 PM CDT Sexual Orientation Not on file Plan of Treatment Not on file Insurance [facility] [address] [place] [address] [place] [address] [place] [address] [place] [phone] Care Teams Millinery Salesperson Relationship Specialty Start Date End Date Myranda Lopez PCP - General 11/07/22
== END 2025-05-23 23:59 | disposition home or self-care (01) ==
LOC: RAD 10:44
PROVIDERS: PCP Family Medicine; Visit Provider Nurse Practitioner
DX: M20.11 Hallux valgus (acquired), right foot (principal); M19.071 Primary osteoarthritis, right ankle and foot; S90.414A Abrasion, right lesser toe(s), initial encounter
CPT/HCPCS: 73630

== ENCOUNTER 2025-05-27 14:04 | Outpatient (CLI) | payer MEDICARE, SELFPAY ==
--- NOTE | 2025-05-27 14:30 | US_ITS ---
FINAL REPORT CLINICAL HISTORY: Symptoms and Signs involving the circulatory syste FINDINGS: LOWER EXTREMITY SEGMENTAL PRESSURE MEASUREMENTS FINDINGS: Pressure indices are as follows: RIGHT LOWER EXTREMITY: Thigh: 0.90 Calf: 1.27 Ankle, posterior tibial artery: 1.46, likely falsely elevated Ankle, dorsalis pedis: Could not be adequately compressed for measurement likely due to advanced calcified plaque Toe: 0.97 Comments: Accuracy of measurements questioned probably due to heavily calcified plaque disease falsely elevating measurements LEFT LOWER EXTREMITY: Thigh: Could not be calculated due to lack of compression Calf: 1.50, likely falsely elevated Ankle, posterior tibial artery: Could not be compressed for measurement attributed to calcified plaque Ankle, dorsalis pedis: Could not be compressed for measurement attributed to heavily calcified plaque Toe: 0.94 Comments: Limited exam as above Authenticated and [facility]
== END 2025-05-27 23:59 | disposition home or self-care (01) ==
LOC: RT 14:05
PROVIDERS: PCP Family Medicine; Visit Provider Nurse Practitioner
DX: R09.89 Other specified symptoms and signs involving the circulatory and respiratory systems (principal)
CPT/HCPCS: 93923